=== PATIENT | female | born 1945 | race Caucasian/White ===

== ENCOUNTER 2017-04-07 01:14 | Inpatient (IN) | payer MEDICARE, MEDICAID ==
[2017-04-07 01:42] LABS: ABSOLUTE BASOPHILS # (AUTO) 0.1 10^3/uL (0.0-0.2); ABSOLUTE EOSINOPHILS # (AUTO) 0.1 10^3/uL (0.0-0.6); ABSOLUTE LYMPHOCYTES (AUTO) 1.4 10^3/uL (0.5-4.7); ABSOLUTE MONOCYTES (AUTO) 0.8 10^3/uL (0.1-1.4); ABSOLUTE NEUT (AUTO) 4.2 10^3/uL (1.7-8.2); EOSINOPHILS % (AUTO) 1.6 % (0-6); HEMATOCRIT 38.7 % (36.0-47.0); HEMOGLOBIN 12.9 g/dL (12.0-15.5); LYMPHOCYTES % (AUTO) 21.3 % (13-45); MEAN CORPUSCULAR HEMOGLOBIN 34.4 pg (27.0-33.4); MEAN CORPUSCULAR HGB CONC 33.3 g/dL (32.0-36.0); MEAN CORPUSCULAR VOLUME 104 fl (80-97); MONOCYTES % (AUTO) 12.3 % (3-13); RED BLOOD COUNT 3.74 10^6/uL (3.72-5.28); RED CELL DISTRIBUTION WIDTH 14.4 % (11.5-14.0); SEGMENTED NEUTROPHILS % (AUTO) 63.8 % (42-78); WHITE BLOOD COUNT 6.5 10^3/uL (4.0-10.5)
[2017-04-07 01:43] LABS: PROTHROMBIN TIME 12.3 SEC (11.4-15.4)
[2017-04-07 01:44] LABS: PARTIAL THROMBOPLASTIN TIME 28.5 SEC (23.5-35.8)
--- NOTE | 2017-04-07 01:50 | ER Document Report ---
ED Neuro Symptoms/Deficit - General Mode of Arrival: Ambulatory Information source: Patient Notes: Patient is a 72 year old female that presents to the emergency department today secondary to altered mental status. Daughter was called and she stated that when patient went to bed tonight the patient was normal, she woke up "shaking". According to the daughter, the patient was treated at [facility] 3 months ago secondary to an ischemic CVA. History is limited secondary to the patient's mental status. <STELLA SMITH - Last Filed: 04/07/17 06:01> <MARK RAHMAN - Last Filed: 04/08/17 03:41> - General Stated Complaint: ALTERED MENTAL STATUS Time Seen by Provider: 04/07/17 01:36 - Related Data Allergies/Adverse Reactions: ciprofloxacin [From Cipro] Adverse Reaction (Verified 04/07/17 03:01) codeine Adverse Reaction (Verified 04/07/17 03:01) morphine Adverse Reaction (Verified 04/07/17 03:01) Penicillins Adverse Reaction (Verified 04/07/17 03:01) promethazine [From Phenergan] Adverse Reaction (Verified 04/07/17 03:01) sulfamethoxazole [From Bactrim] Adverse Reaction (Verified 04/07/17 03:01) trimethoprim [From Bactrim] Adverse Reaction (Verified 04/07/17 03:01) Home Medications: Current Home Medications Amlodipine Besylate [Norvasc 5 mg Tablet] 5 mg PO DAILY 04/07/17 [History] Aspirin 81 mg PO DAILY PRN 04/07/17 [History] Atorvastatin Calcium 40 mg PO QHS 04/07/17 [History] Carvedilol [Coreg 12.5 mg Tablet] 12.5 mg PO Q12 04/07/17 [History] Cranberry [Cranberry 1000 mg Capsule] 2,000 mg PO NOON 04/07/17 [History] Ferrous Sulfate [Feosol 325 mg Tablet] 325 mg PO NOON 04/07/17 [History] Furosemide [Lasix 40 mg Tablet] 40 mg PO QAM 04/07/17 [History] Gabapentin [Neurontin 300 mg Capsule] 300 mg PO Q8 04/07/17 [History] Isosorbide Mononitrate [Isosorbide Mononitrate ER] 60 mg PO DAILY 04/07/17 [ History] L. Rhamnosus GG/Inulin [Culturelle Capsule] 1 each PO Q12 04/07/17 [History] Magnesium Oxide [Mag-Ox 400 mg Tablet] 400 mg PO NOON 04/07/17 [History] Pantoprazole Sodium 40 mg PO QHS 04/07/17 [History] Potassium Chloride 10 meq PO NOON 04/07/17 [History] Ranolazine [Ranexa] 1,000 mg PO Q12 04/07/17 [History] Past Medical History - General Information source: Patient - Social History Smoking Status: Never Smoker Cigarette use (# per day): No Frequency of alcohol use: None Drug Abuse: None Lives with: Family Family History: Reviewed & Not Pertinent - Past Medical History Cardiac Medical History: Reports: Hx Hypercholesterolemia Neurological Medical History: Reports: Hx Cerebrovascular Accident Surgical Hx: Negative <STELLA SMITH - Last Filed: 04/07/17 06:01> Review of Systems - Review of Systems -: Yes ROS unobtainable due to patient's medical condition <STELLA SMITH - Last Filed: 04/07/17 06:01> Physical Exam - Notes Notes: Physical Exam: General: Altered. HEENT: Normocephalic. Atraumatic. PERRL. Extraocular movements intact. Oropharynx clear. Neck: Supple. Non-tender. Respiratory: No respiratory distress. Clear and equal breath sounds bilaterally. Cardiovascular: Regular rate and rhythm. Abdominal: Normal Inspection. Non-tender. No distension. Normal Bowel Sounds. Back: Non-tender. No deformity or step off. Extremities: Moves all four extremities. Upper extremities: Normal inspection. Normal ROM. Lower extremities: Normal inspection. No edema. Normal ROM. Neurological: Alert, expressive aphasia and dysarthria. Initially flaccid throughout all extremties. Positive gag reflex. 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 Psychological: Normal affect. Normal Mood. Skin: Warm. Dry. Normal color. <STELLA SMITH - Last Filed: 04/07/17 06:01> - Vital signs Vitals: Resp BP Pulse Ox 21 H 110/53 L 99 04/07/17 01:49 04/07/17 01:49 04/07/17 01:49 <MARK RAHMAN - Last Filed: 04/08/17 03:41> Course - Laboratory Result Diagrams: 04/07/17 01:28 04/07/17 02:04 Laboratory results interpreted by me: 04/07/17 01:28 MCV 104 H MCH 34.4 H RDW 14.4 H <STELLA SMITH - Last Filed: 04/07/17 06:01> - Re-evaluation Re-evalutation: 04/07/17 02:42 Patient presents emergency department chief complaint of altered mental status. On ED arrival she was immediately made a stroke protocol and sent directly to CT. I was called over the CT scanner by the nurse who stated that the patient had an episode of bradycardia and hypotension. By the time I arrived in the CT scanner her heart rate was around 50 and no obvious abnormalities on the monitor blood pressure was systolic around 120. I stayed with her in the CT scanner. Radiologist called stating that there is a subacute infarct but no acute hemorrhage. Plan was to do a CTA cup put in as a CT with IV contrast. I have contacted [facility] request of a neurologist there. Daughter reports that the patient was taken to [facility] with a stroke about 3 months ago. Patient subsequently was admitted for about 3 weeks went to rehab. Since she has been home she has been doing okay with the exception of occasionally falling and having shakiness which have not been defined as seizures. Tonight the daughter states that the patient went to sleep in the chair completely normal woke up about 20-30 minutes later shaking and garbled speech. At this point when I contact the neurologist to [facility]'s been 1 hour and 50 minutes since the onset of symptoms. I am still awaiting a phone call from [facility] in terms of assessment evaluation for the use of thrombolytics. 04/07/17 02:[address] Aguilar who is on-call for the hospitalist program. Family has requested that she be transferred to [facility] we do not have a neurologist ophthalmic surgeon here so Dr. Aguilar is okay with us pursuing the transfer to [facility] as they have recommended. Received a call back from Dr. Deshawn Arriola hospitalist at [facility] discussed the case however I did not receive a phone call from a neurologist to weigh in on whether or not thrombolytics were appropriate. They are now contacting the neurologist to contact me back. Dr. Flako gomez does remember taking care of the patient says that she was discharged on Eliquis. Medications were reviewed at the bedside I do not see Eliquis on her medication list. Patient is reassessed at bedside she is able to hold both of her legs up at this point she is able to squeeze my hands with her bilateral upper extremities has 1 out of 4 strength equally to the upper extremities. She does comprehend what I am telling her but still with garbled speech. 04/07/17 02:58 04/07/17 03:20 Dr. vazquez, neurology callback from [facility]. He said it is my decision whether or not I would give thrombolytics as she is in the window. At this point the patient is unable to make a decision so I called her daughter on the telephone we had an extensive telephone conversation about risks and benefits of thrombolytics. At this time she has chosen not to have the thrombolytics administered to her mother. [facility] does not have a bed the daughter is comfortable with her staying here and contact Dr. Aguilar and keep her here at this facility. Daughter is uncertain whether or not the patient is on the blood thinner that she was discharged with from [facility] and her medication list here does not show that blood thinner on her list. 04/07/17 04:[address] Aguilar started blood pressure medication and calcium on this patient. He ordered 5 mg of dopamine, calcium gluconate, and glucagon. - Vital Signs Vital signs: Temp Pulse Resp BP Pulse Ox 15 114/54 L 99 04/07/17 02:03 04/07/17 02:03 04/07/17 02:03 - Laboratory Result Diagrams: 04/07/17 01:28 04/07/17 13:37 Laboratory results interpreted by me: 04/07/17 04/07/17 04/07/17 01:28 01:56 02:04 MCV 104 H MCH 34.4 H RDW 14.4 H BUN 42 H Creatinine 1.47 H Est GFR ( Amer) 42 L Est GFR (Non-Af Amer) 35 L POC Glucose 118 H <MARK RAHMAN Filed: 04/08/17 03:41> Critical Care Note - Critical Care Note Total time excluding time spent on procedures (mins): 75 <MARK RAHMAN Filed: 04/08/17 03:41> ED [employer]/Exc Criteria ED NIH Stroke Scale Discharge <STELLA SMITH - Last Filed: 04/07/17 06:01> - Discharge Admitting Provider: Hospitalist Unit Admitted: ICU Scribe Attestation: 04/07/17 04:31 I personally performed the services described in the documentation reviewed the documentation recorded by my scribe in my presence and it accurately and completely records my words and actions <MARK RAHMAN - Last Filed: 04/08/17 03:41> - Discharge Clinical Impression: Acute CVA (cerebrovascular accident), Pulmonary nodule on chest x-ray, uti Condition: Stable Disposition: ADMITTED INPATIENT Scribe Documentation - Scribe Written by Alyssa:: Alyssa Bermudez, 04/07/2017 0524 acting as scribe for :: Josué <STELLA SMITH - Last Filed: 04/07/17 06:01>
--- NOTE | 2017-04-07 02:13 | RADIOLOGY REPORT (SQ) ---
EXAM DESCRIPTION: CT HEAD WITHOUT COMPLETED DATE/TIME: 04/07/2017 1:48 am REASON FOR STUDY: stroke protocol. Slurred speech, right-sided weakness. Onset of symptoms 30 niurka cory prior. COMPARISON: None. TECHNIQUE: Axial images acquired through the brain without intravenous contrast. Images reviewed wi th bone, brain and subdural windows. Images stored on PACS. All CT scanners at this facility use dose modulation, iterative reconstruction, and/or weight based d osing when appropriate to reduce radiation dose to as low as reasonably achievable (ALARA). [facility]: Dose Right [facility]: CareDose [facility]: Dose Right [facility]: Teradose 4D [facility]: [employer] RADIATION DOSE: Up-to-date CT equipment and radiation dose reduction techniques were employed. CTDIv ol: 49.0 mGy. DLP: 881 mGy-cm.mGy. LIMITATIONS: None. FINDINGS: VENTRICLES: Prominent. CEREBRUM: No hemorrhage. No midline shift. Areas of low density in the white matter most likely du e to chronic micro-vascular ischemic change. There is a remote left basal ganglia infarct. There is also an area of low density in the right occipital lobe. CEREBELLUM: No hemorrhage. No alteration of density. No evidence for acute infarction. EXTRAAXIAL SPACES: Age-related involutional change. No fluid collections. ORBITS AND GLOBE: Symmetr ical contour of the globes. CALVARIUM: No depressed fracture. PARANASAL SINUSES: No air-fluid level. SOFT TISSUES: No hematoma. IMPRESSION: No acute intracranial hemorrhage. Low density area in the white matter in the right occ ipital lobe, may represent an age indeterminate infarct in the distribution of the right posterior ce rebral artery, possibly subacute or chronic. Please correlate with clinical history/ exam. No prior studies are available for comparison. Contrast enhanced MRI can help in better evaluation. Remote left basal ganglia infarct. Chronic changes of atrophy and microvascular ischemia. COMMENT: Pertinent findings on the imaging study reported as a CRITICAL RESULT to MARK RAHMAN MD at2 :00 hours on 04/07/2017. Category of Critical Result: Stroke alert. TECHNICAL DOCUMENTATION: JOB ID: [id number] Quality ID # [id number]: Final reports with documentation of one or more dose reduction techniques (e.g., Au tomated exposure control, adjustment of the mA and/or kV according to patient size, use of iterative reconstruction technique) 2010 [employer]- All Rights Reserved
[2017-04-07 02:24] LABS: ALANINE AMINOTRANSFERASE 26 U/L (9-52); ALBUMIN 4.2 g/dL (3.5-5.0); ALKALINE PHOSPHATASE 108 U/L (38-126); ANION GAP 13 (5-19); ASPARTATE AMINO TRANSFERASE 29 U/L (14-36); BILIRUBIN,DIRECT 0.4 mg/dL (0.0-0.4); BILIRUBIN,TOTAL 0.9 mg/dL (0.2-1.3); BLOOD UREA NITROGEN 42 mg/dL (7-20); CALCIUM 9.3 mg/dL (8.4-10.2); CARBON DIOXIDE 30 mmol/L (22-30); CHLORIDE 98 mmol/L (98-107); CREATINE KINASE 37 U/L (30-135); CREATININE RESULT 1.47 mg/dL (0.52-1.25); GLUCOSE 105 mg/dL (75-110); MAGNESIUM 2.2 mg/dL (1.6-2.3); POTASSIUM 4.9 mmol/L (3.6-5.0); SODIUM 140.7 mmol/L (137-145); TOTAL PROTEIN 7.2 g/dL (6.3-8.2)
[2017-04-07 02:38] LABS: TROPONIN I < 0.012 ng/mL
--- NOTE | 2017-04-07 02:58 | RADIOLOGY REPORT (SQ) ---
EXAM DESCRIPTION: CT HEAD WITH COMPLETED DATE/TIME: 04/07/2017 2:23 am REASON FOR STUDY: ams . History of stroke 3 months ago. COMPARISON: CT brain noncontrast 04/07/2017. TECHNIQUE: Axial images acquired through the brain with intravenous contrast. Images reviewed with b one, brain and subdural windows. Images stored on PACS. All CT scanners at this facility use dose modulation, iterative reconstruction, and/or weight based d osing when appropriate to reduce radiation dose to as low as reasonably achievable (ALARA). [facility]: Dose Right [facility]: CareDose [facility]: Dose Right [facility]: Teradose 4D [facility]: [employer] CONTRAST TYPE AND DOSE: contrast/concentration: Isovue 370.00 mg/ml; Total Contrast Delivered: 50.0 ml; Total Saline Delivered: 55.0 ml RENAL FUNCTION: Creatinine 1.47, GFR 35. RADIATION DOSE: Up-to-date CT equipment and radiation dose reduction techniques were employed. CTDIv ol: 49.0 mGy. DLP: 881 mGy-cm.. LIMITATIONS: Motion artifact. FINDINGS: There is motion artifact. VENTRICLES: Prominent. CEREBRUM: No enhancing masses. No hemorrhage. No midline shift. Areas of low density in the white matter most likely due to chronic micro-vascular ischemic change. There is a low density area in the right occipital lobe. CEREBELLUM: No enhancing masses. No hemorrhage. No alteration of density. No evidence for acute inf arction. EXTRAAXIAL SPACES: Age-related involutional change. No fluid collections. ORBITS AND GLOBE: Symmetr ical contour of the globes. CALVARIUM: No depressed fracture. PARANASAL SINUSES: No air-fluid level. SOFT TISSUES: No hematoma. IMPRESSION: No enhancing mass. Chronic changes of atrophy and microvascular ischemia. Low density area in the right occipital lobe, may correspond to the patient's prior infarct. Please correlate wi th clinical history/ exam. Comparison with prior studies would be helpful. Otherwise, MRI can help in further evaluation. TECHNICAL DOCUMENTATION: JOB ID: [id number] Quality ID # [id number]: Final reports with documentation of one or more dose reduction techniques (e.g., Au tomated exposure control, adjustment of the mA and/or kV according to patient size, use of iterative reconstruction technique) 2010 [employer]- All Rights Reserved
--- NOTE | 2017-04-07 03:01 | RADIOLOGY REPORT (SQ) ---
EXAM DESCRIPTION: CHEST SINGLE VIEW COMPLETED DATE/TIME: 04/07/2017 2:06 am REASON FOR STUDY: stroke protocol COMPARISON: None. EXAM PARAMETERS: NUMBER OF VIEWS: One view. TECHNIQUE: Single frontal radiographic view of the chest acquired. RADIATION DOSE: NA LIMITATIONS: None. FINDINGS: LUNGS AND PLEURA: No consolidation, pneumothorax or pleural effusion. There is a 7 mm nod ule in the right upper lobe. Hyperlucent lungs, suggestive of emphysema. MEDIASTINUM AND HILAR STRUCTURES: No masses. Contour normal. HEART AND VASCULAR STRUCTURES: Heart normal in size. No overt vascular congestion. BONES: No acute findings. HARDWARE: None in the chest. IMPRESSION: Emphysema. 7 mm nodule in the right upper lobe, CT thorax can help in better evaluation . TECHNICAL DOCUMENTATION: JOB ID: [id number]
[2017-04-07 03:10] LABS: APPEARANCE,URINE CLOUDY; BILIRUBIN,URINE NEGATIVE (NEGATIVE); GLUCOSE, URINE NEGATIVE (NEGATIVE); KETONES,URINE NEGATIVE (NEGATIVE); LEUKOCYTE ESTERASE,URINE MODERATE (NEGATIVE); NITRITE,URINE POSITIVE (NEGATIVE); PROTEIN,URINE 30 mg/dL (NEGATIVE); URINE SPECIFIC GRAVITY 1.032; UROBILINOGEN,URINE NEGATIVE mg/dL (<2.0)
[2017-04-07] MEDS ORDERED: CEFTRIAXONE INJ 1000 MG VIAL IV ONE (03:50)
[2017-04-07] MEDS ORDERED: CALCIUM GLUCONATE 1000 MG/10 ML INJ IV ONE ×2 (04:01→14:45)
[2017-04-07] MEDS ORDERED: GLUCAGON,HUMAN RECOMB 1 MG INJ ONE (04:01)
[2017-04-07] MEDS ORDERED: DOPAMINE HCL/DEXTROSE 5%-WATER 800 MG/250 ML RTUINJ IV ONE ×2 (04:12→14:17)
[2017-04-07] MEDS ORDERED: ASPIRIN 300 MG SUPP, RECTAL PR ONE (04:24)
[2017-04-07] MEDS ORDERED: NORMAL SALINE 1000 ML 1,000 ML IV SCH (04:30)
[2017-04-07] MEDS ORDERED: ATROPINE SULFATE INJ 1 MG/1 ML VIAL IV ONE (04:30)
[2017-04-07] MEDS ORDERED: ATORVASTATIN CALCIUM 80 MG TABLET PO SCH (04:30)
[2017-04-07] MEDS ORDERED: ATROPINE SULFATE INJ 1 MG/1 ML VIAL ONE (04:38)
[2017-04-07] MEDS ORDERED: DEXTROSE 5%-WATER 250 ML with NOREPINEPHRINE BITARTRATE 4 MG IV PRN ×2 (05:09)
[2017-04-07 05:22] LABS: ARTERIAL BLOOD BASE EXCESS 3.2 mmol/L
[2017-04-07] MEDS ORDERED: NOREPINEPHRINE BITARTRATE INJ/PF 4 MG/4 ML SDV IV ONE (05:35)
[2017-04-07 05:48] LABS: URINE BARBITURATES SCREEN NEGATIVE; URINE METHADONE SCREEN NEGATIVE; URINE OPIATES LOW NEGATIVE; URINE PHENCYCLIDINE SCREEN NEGATIVE
[2017-04-07] MEDS ORDERED: HEPARIN SOD (PORCINE) 5,000 UNIT/ML 1 ML SYRINGE SUBCUT SCH (06:00)
--- NOTE | 2017-04-07 07:23 | PDOC H&P ---
History of Present Illness Patient complains of: Seizure-like activity History of Present Illness: LISA FRANCISCO is a 72 year old female with a past medical history of coronary artery disease, COPD and CVA approximately 3 months ago who had been discharged from acute rehabilitation approximately a week ago without significant deficits and doing well until approximately midnight when she was noted to awaken from a 20 minute nap with limb shaking and inability to speak. Her daughter is contacted and able to provide history denies prior complaint of fever chills, nausea or vomiting. EMS is called and she is found with a low blood pressure, pulse and brought to the emergency room for evaluation. In the emergency room she is found to have bradycardia with a junctional escape rhythm, hypotension and expressive aphasia. Nursing reports critical bradycardia in the 20s upon transport to [place]. Evaluation of her medication blister packs indicate missing medications from future dates including Coreg and Norvasc. ER provider states family declines thrombolytic and refers patient to the hospitalist. Patient is seen by MD in the emergency room placed in Trendelenburg ordered glucagon, calcium gluconate and a bolus of normal saline. Following glucagon atropine and dopamine are initiated. Patient admitted to the ICU and cardiology consulted. Past Medical History Cardiac Medical History: Reports: Coronary Artery Disease, Hypertension Pulmonary Medical History: Reports: Chronic Obstructive Pulmonary Disease (COPD) EENT Medical History: Reports: None Neurological Medical History: Reports: Ischemic CVA, Other - With left eye blind residual. Otherwise ambulatory and independent ADLs. Musculoskeltal Medical History: Reports: None Skin Medical History: Reports: None Psychiatric Medical History: Reports: None Hematology: Reports: None Infectious Medical History: Reports: None Social History Information Source: Relative, Emergency Med Personnel, [facility] Records Lives with: Family Smoking Status: Former Smoker Drugs: None Hx Prescription Drug Abuse: No Family History Family History: Hypertension Parental Family History Reviewed: Yes - Unobtainable Children Family History Reviewed: Yes - Unobtainable Sibling(s) Family History Reviewed.: Yes - Unobtainable Medication/Allergy Home Medications: Amlodipine Besylate [Norvasc 5 mg Tablet] 5 mg PO DAILY 04/07/17 Aspirin 81 mg PO DAILY PRN 04/07/17 Atorvastatin Calcium 40 mg PO QHS 04/07/17 Carvedilol [Coreg 12.5 mg Tablet] 12.5 mg PO Q12 04/07/17 Cranberry [Cranberry 1000 mg Capsule] 2 cap PO NOON 04/07/17 Furosemide [Lasix 40 mg Tablet] 40 mg PO QAM 04/07/17 Gabapentin [Neurontin 300 mg Capsule] 300 mg PO Q8 04/07/17 Iron,Carbonyl/Vit C/Vit B12/FA [Iron 100 Plus Tablet] 1 each PO NOON 04/07/17 Isosorbide Mononitrate [Isosorbide Mononitrate ER] 60 mg PO DAILY 04/07/17 L. Rhamnosus GG/Inulin [Culturelle Capsule] 1 each PO BID 04/07/17 Magnesium Oxide [Mag-Ox 400 mg Tablet] 400 mg PO NOON 04/07/17 Pantoprazole Sodium 40 mg PO QHS 04/07/17 Potassium Chloride 10 meq PO NOON 04/07/17 Ranolazine [Ranexa] 1,000 mg PO BID 04/07/17 Valacyclovir HCl [Valacyclovir] 1,000 mg PO BID 04/07/17 Allergies/Adverse Reactions: ciprofloxacin [From Cipro] Adverse Reaction (Verified 04/07/17 03:01) codeine Adverse Reaction (Verified 04/07/17 03:01) morphine Adverse Reaction (Verified 04/07/17 03:01) Penicillins Adverse Reaction (Verified 04/07/17 03:01) promethazine [From Phenergan] Adverse Reaction (Verified 04/07/17 03:01) sulfamethoxazole [From Bactrim] Adverse Reaction (Verified 04/07/17 03:01) trimethoprim [From Bactrim] Adverse Reaction (Verified 04/07/17 03:01) Review of Systems ROS unobtainable: Due to mental status - Unobtainable Physical Exam Vital Signs: Temp Pulse Resp BP Pulse Ox 97.0 F 15 105/50 L 96 04/07/17 02:30 04/07/17 04:01 04/07/17 04:01 04/07/17 04:01 General appearance: PRESENT: mild distress Head exam: PRESENT: atraumatic, normocephalic Eye exam: PRESENT: conjunctiva pink, EOMI, PERRLA. ABSENT: scleral icterus Ear exam: PRESENT: normal external ear exam Mouth exam: PRESENT: moist, tongue midline Neck exam: ABSENT: carotid bruit, JVD, lymphadenopathy, thyromegaly Respiratory exam: PRESENT: clear to auscultation edwin. ABSENT: rales, rhonchi, wheezes Cardiovascular exam: PRESENT: bradycardia, irregular rhythm Pulses: PRESENT: normal dorsalis pedis pul Vascular exam: PRESENT: normal capillary refill GI/Abdominal exam: PRESENT: normal bowel sounds, soft. ABSENT: distended, guarding, mass, organolmegaly, rebound, tenderness Rectal exam: PRESENT: deferred Extremities exam: PRESENT: full ROM. ABSENT: calf tenderness, clubbing, pedal edema Neurological exam: PRESENT: altered, awake, CN II-XII grossly intact, aphasic Skin exam: PRESENT: dry, intact, warm. ABSENT: cyanosis, rash Results Laboratory Results: 04/07/17 01:28 04/07/17 02:04 04/07/17 04/07/17 04/07/17 01:28 01:28 02:04 WBC 6.5 RBC 3.74 Hgb 12.9 Hct 38.7 MCV 104 H MCH 34.4 H MCHC 33.3 RDW 14.4 H Plt Count 248 Seg Neutrophils % 63.8 Lymphocytes % 21.3 Monocytes % 12.3 Eosinophils % 1.6 Basophils % 1.0 Absolute Neutrophils 4.2 Absolute Lymphocytes 1.4 Absolute Monocytes 0.8 Absolute Eosinophils 0.1 Absolute Basophils 0.1 Sodium Cancelled 140.7 Potassium Cancelled 4.9 Chloride Cancelled 98 Carbon Dioxide Cancelled 30 Anion Gap Cancelled 13 BUN Cancelled 42 H Creatinine Cancelled 1.47 H Est GFR ( Amer) Cancelled 42 L Est GFR (Non-Af Amer) Cancelled 35 L Glucose Cancelled 105 Calcium Cancelled 9.3 Magnesium 2.2 Total Bilirubin Cancelled 0.9 AST Cancelled 29 ALT Cancelled 26 Alkaline Phosphatase Cancelled 108 Total Protein Cancelled 7.2 Albumin Cancelled 4.2 Urine Color Urine Appearance Urine pH Ur Specific [place] Urine Protein Urine Glucose (UA) Urine Ketones Urine Blood Urine Nitrite Ur Leukocyte Esterase Urine WBC (Auto) Urine RBC (Auto) 04/07/17 02:48 WBC RBC Hgb Hct MCV MCH MCHC RDW Plt Count Seg Neutrophils % Lymphocytes % Monocytes % Eosinophils % Basophils % Absolute Neutrophils Absolute Lymphocytes Absolute Monocytes Absolute Eosinophils Absolute Basophils Sodium Potassium Chloride Carbon Dioxide Anion Gap BUN Creatinine Est GFR ( Amer) Est GFR (Non-Af Amer) Glucose Calcium Magnesium Total Bilirubin AST ALT Alkaline Phosphatase Total Protein Albumin Urine Color MALDONADO Urine Appearance CLOUDY Urine pH 5.0 Ur Specific [place] 1.032 Urine Protein 30 H Urine Glucose (UA) NEGATIVE Urine Ketones NEGATIVE Urine Blood NEGATIVE Urine Nitrite POSITIVE H Ur Leukocyte Esterase MODERATE H Urine WBC (Auto) 77 Urine RBC (Auto) 0 04/07/17 04/07/17 04/07/17 01:28 01:28 02:04 Creatine Kinase Cancelled 37 CK-MB (CK-2) Cancelled Troponin I Cancelled 04/07/17 02:04 Creatine Kinase CK-MB (CK-2) 0.70 Troponin I < 0.012 Impressions: Chest X-Ray 04/07/17 01:30 IMPRESSION: Emphysema. 7 mm nodule in the right upper lobe, CT thorax can help in better evaluation. Head CT 04/07/17 02:02 IMPRESSION: No enhancing mass. Chronic changes of atrophy and microvascular ischemia. Low density area in the right occipital lobe, may correspond to the patient's prior infarct. Please correlate with clinical history/ exam. Comparison with prior studies would be helpful. Otherwise, MRI can help in further evaluation. Assessment & Plan - Diagnosis (1) Acute CVA (cerebrovascular accident) Is this a current diagnosis for this admission?: Yes Plan: History of recent CVA without residual her daughter and apparently without stenotic lesion, will obtain records from [facility]. Continue aggressive reversal of hypotension and bradycardia, aspirin and Lipitor , speech, occupational and physical therapy ordered. (2) Bradycardia with 41-50 beats per minute Is this a current diagnosis for this admission?: Yes Plan: Likely secondary to beta-wally toxicity, concern for hypoperfusion or even embolic source of CVA. Atropine, glucagon, calcium gluconate and dopamine. Cardiology consulted and ICU admission (3) Hypotension Is this a current diagnosis for this admission?: Yes Plan: Please see #1. IV fluid challenge initiated patient appears hypovolemic physically and prerenal by labs. (4) Prerenal azotemia Is this a current diagnosis for this admission?: Yes Plan: IV fluid challenge reevaluate chemistry (5) Toxic effect of beta wally Is this a current diagnosis for this admission?: Yes Plan: Atropine, glucagon, calcium gluconate and dopamine. Cardiology consulted and ICU admission (6) Mass of right lung Is this a current diagnosis for this admission?: Yes Plan: Consider chest CT or outpatient workup. (7) UTI (urinary tract infection) Is this a current diagnosis for this admission?: Yes Plan: Urine culture, empiric antibiotics. Follow-up CBC and culture - Time Time Spent: 50 to 70 Minutes - Inpatient Certification Medical Necessity: Need Close Monitoring Due to Risk of Patient Decompensation
[2017-04-07 07:43] LABS: ARTERIAL BLOOD O2 SATURATION 98.3 % (94-98)
[2017-04-07] MEDS ORDERED: NORMAL SALINE 1000 ML 1,000 ML IV PRN (08:36)
[2017-04-07 08:59] LABS: CREATINE KINASE MB 0.57 ng/mL (<4.55)
[2017-04-07] MEDS ORDERED: NORMAL SALINE 1000 ML 2,000 ML IV ONE (09:00)
[2017-04-07 09:03] LABS: TROPONIN I < 0.012 ng/mL
[2017-04-07] MEDS: CEFTRIAXONE 1 GM/D5W RTU 1 GM/50 ML RTUPB IV SCH (09:26)
[2017-04-07] MEDS ORDERED: (PENDING PHARMACY ID) (Valacyclovir Hcl [Valacyclovir] 1,000 MG) PO SCH (10:00)
[2017-04-07] MEDS ORDERED: VALACYCLOVIR HCL 500 MG TABLET PO SCH (10:00)
[2017-04-07] MEDS ORDERED: ONDANSETRON HCL INJ/PF 4 MG/2 ML SDV ONE (10:13)
[2017-04-07] MEDS ORDERED: ONDANSETRON HCL INJ/PF 4 MG/2 ML SDV IV PRN (11:33)
[2017-04-07] MEDS ORDERED: CRANBERRY PO SCH (12:00)
[2017-04-07] MEDS ORDERED: MAGNESIUM OXIDE 400 MG TABLET PO SCH (12:00)
--- NOTE | 2017-04-07 12:22 | PDOC CONSULTATION ---
Consultation Consult Date: 04/07/17 Attending physician:: ARLYN BLACKMON Consult reason:: Bradycardia and hypotension History of Present Illness Admission Date/PCP: 04/07/17 04:20 Patient complains of: Weakness History of Present Illness: LISA FRANCISCO is a 72 year old female with a past medical history of coronary artery disease, COPD and CVA approximately 3 months ago who had been discharged from acute rehabilitation approximately a week ago without significant deficits and doing well until approximately midnight when she was noted to awaken from a 20 minute nap with limb shaking and inability to speak. Her daughter is contacted and able to provide history denies prior complaint of fever chills, nausea or vomiting. EMS is called and she is found with a low blood pressure, pulse and brought to the emergency room for evaluation. In the emergency room she is found to have bradycardia with a junctional escape rhythm, hypotension and expressive aphasia. Nursing reports critical bradycardia in the 20s upon transport to CT. Evaluation of her medication blister packs indicate missing medications from future dates including Coreg and Norvasc. ER provider states family declines thrombolytic and refers patient to the hospitalist. Patient is seen by MD in the emergency room placed in Trendelenburg ordered glucagon, calcium gluconate and a bolus of normal saline. Following glucagon atropine and dopamine are initiated. Patient admitted to the ICU and cardiology consulted. This history was reviewed and supplemented. Patient on repeated questioning denied any chest pain or any shortness of breath. Patient has noted some dizziness and spells of fatigue and tiredness. Patient denied any prior history of myocardial infarction. Patient does have intermittent nausea and vomiting. Patient claims to be back to baseline as regards speech problems. Past Medical History Cardiac Medical History: Reports: Coronary Artery Disease, Myocardial Infarction , Hyperlipidema, Hypertension Pulmonary Medical History: Reports: Chronic Obstructive Pulmonary Disease (COPD) EENT Medical History: Reports: None Neurological Medical History: Reports: Ischemic CVA, Other - With left eye blind residual. Otherwise ambulatory and independent ADLs. Musculoskeltal Medical History: Reports: None Skin Medical History: Reports: None Psychiatric Medical History: Reports: None Hematology: Reports: None Infectious Medical History: Reports: None Social History Information Source: Patient Lives with: Family Smoking Status: Former Smoker Cigarettes Packs Per Day: 2 Number of Years Smokin Last Time Smoked: 2009 Frequency of Alcohol Use: None Drugs: None Hx Prescription Drug Abuse: No - Advance Directive Resuscitation Status: Full Code Surrogate healthcare decision maker:: Patient's daughter is the surrogate decision-maker Family History Family History: Hypertension Parental Family History Reviewed: Yes Children Family History Reviewed: Yes Sibling(s) Family History Reviewed.: Yes Medication/Allergy Home Medications: Amlodipine Besylate [Norvasc 5 mg Tablet] 5 mg PO DAILY 04/07/17 Aspirin 81 mg PO DAILY PRN 04/07/17 Atorvastatin Calcium 40 mg PO QHS 04/07/17 Carvedilol [Coreg 12.5 mg Tablet] 12.5 mg PO Q12 04/07/17 Cranberry [Cranberry 1000 mg Capsule] 2,000 mg PO NOON 04/07/17 Ferrous Sulfate [Feosol 325 mg Tablet] 325 mg PO NOON 04/07/17 Furosemide [Lasix 40 mg Tablet] 40 mg PO QAM 04/07/17 Gabapentin [Neurontin 300 mg Capsule] 300 mg PO Q8 04/07/17 Isosorbide Mononitrate [Isosorbide Mononitrate ER] 60 mg PO DAILY 04/07/17 L. Rhamnosus GG/Inulin [Culturelle Capsule] 1 each PO Q12 04/07/17 Magnesium Oxide [Mag-Ox 400 mg Tablet] 400 mg PO NOON 04/07/17 Pantoprazole Sodium 40 mg PO QHS 04/07/17 Potassium Chloride 10 meq PO NOON 04/07/17 Ranolazine [Ranexa] 1,000 mg PO Q12 04/07/17 Allergies/Adverse Reactions: ciprofloxacin [From Cipro] Adverse Reaction (Verified 04/07/17 03:01) codeine Adverse Reaction (Verified 04/07/17 03:01) morphine Adverse Reaction (Verified 04/07/17 03:01) Penicillins Adverse Reaction (Verified 04/07/17 03:01) promethazine [From Phenergan] Adverse Reaction (Verified 04/07/17 03:01) sulfamethoxazole [From Bactrim] Adverse Reaction (Verified 04/07/17 03:01) trimethoprim [From Bactrim] Adverse Reaction (Verified 04/07/17 03:01) Review of Systems Review of Systems: Please see history of present illness and past medical history as wall. Constitutional: No fever or chills reported. Head : No recent chronic headaches, recent head injury. Eyes: No recent eye pain, diplopia, redness, discharge, acute visual changes. Ears: No recent chronic ear pain, acute hearing loss, ear discharge. Oral cavity: No recent ulcerations, bleeding, oral cavity discomfort. Neck: No recent acute neck pain reported. Hematologic: No recent easy bruising or bleeding or hematologic malignancy reported. Lymphatic: No recent lymphatic malignancy, chronic lymphadenopathy reported yet Cardiovascular system review: See history of present illness. Respiratory system review: No recent chronic cough, hemoptysis, blood clots in the lungs reported. Mild Shortness of breath on exertion Gastrointestinal system review: Negative for any recent acute or chronic abdominal pain, hematemesis, melena, recent change in bowel habits. Genitourinary system review: No recent acute or chronic hematuria, flank pain, UTI etc. reported. Skin system review: Negative for any recent abnormal bruising, no rash, no pruritus reported. Neurologic: History of recent strokes and mini strokes. No definite history of seizure disorder. Psychologic: No history of major psychosis or major depression reported. Musculoskeletal: Minor aches and pains reported. No acute joint swelling reported. Endocrine: No recent polyuria, polydipsia, recent heat or cold intolerance. Physical Exam Vital Signs: Temp Pulse Resp BP Pulse Ox 97.9 F 64 18 101/49 L 87 L 04/07/17 10:22 04/07/17 08:00 04/07/17 10:22 04/07/17 10:22 04/07/17 10:22 Intake & Output 04/06/17 04/07/17 04/08/17 06:59 06:59 06:59 Intake Total 290 Output Total 110 Balance 180 Weight 86.2 kg Exam: GENERAL: well-nourished and in no acute distress. Alert and oriented x3 HEAD: Atraumatic, normocephalic. EYES: Pupils equal round and reactive to light, extraocular movements intact, sclera anicteric, conjunctiva are normal. Left-sided residual blindness noted. ENT: TMs normal, nares patent, oropharynx clear without exudates. Moist mucous membranes. No oral ulcerations or bleeding gums noted NECK: supple without lymphadenopathy. Trachea is central. No cervical or axillary lymphadenopathy noted. Carotids are 2+, JVD WNL LUNGS: Respiration seems nonlabored, no significant accessory muscle action noted. Breath sounds clear to auscultation bilaterally and equal noted. No wheezes rales or rhonchi noted. No significant dullness noted on percussion. CHEST: Palpation of the chest wall shows no significant chest wall tenderness. No other significant abnormalities noted. HEART: [place]gs SUPERINTENDENT MEASUREMENT, No PSH, 1/6 MARTIN aortic area, 1/6 herrera systolic murmur mitral area, no rubs, no gallops. ABDOMEN: Soft, no significant tenderness appreciated, normoactive bowel sounds. No guarding, no rebound. No rigidity noted . No masses appreciated. EXTREMITIES: Pedal pulses are 1-2+, no calf tenderness noted. No clubbing or cyanosis.trace to 1+ pedal edema noted NEUROLOGICAL: Focused neurological exam showed speech being dysarthric. Mild left-sided weakness noted. A full neurological exam was not performed. PSYCH: Normal mood, normal affect. Judgment and insight within normal limits. SKIN: No significant ecchymosis, rash, ulcerations or signs of pruritus noted. MUSCULOSKELETAL EXAM: No significant joint swelling noted. Results Laboratory Results: 04/07/17 04/07/17 04/07/17 05:10 06:13 07:30 Carbonic Acid 2.01 H 1.84 H HCO3/H2CO3 Ratio 15:1 16:1 ABG pH 7.29 L 7.30 L ABG pCO2 66.8 H 61.2 H ABG pO2 49.1 L 131.2 H ABG HCO3 31.5 H 29.6 H ABG O2 Saturation 79.0 L 98.3 H ABG Base Excess 3.2 2.0 FiO2 3 LITERS 60% Lactic Acid 1.1 04/07/17 04/07/17 08:10 08:10 Creatine Kinase 28 L CK-MB (CK-2) 0.57 Troponin I < 0.012 EKG Comments: EKG this morning shows sinus rhythm with heart rate of 59. No acute ST-T wave changes are noted. Impressions: Chest X-Ray 04/07/17 01:30 IMPRESSION: Emphysema. 7 mm nodule in the right upper lobe, CT thorax can help in better evaluation. Head CT 04/07/17 02:02 IMPRESSION: No enhancing mass. Chronic changes of atrophy and microvascular ischemia. Low density area in the right occipital lobe, may correspond to the patient's prior infarct. Please correlate with clinical history/ exam. Comparison with prior studies would be helpful. Otherwise, MRI can help in further evaluation. Assessment & Plan - Diagnosis (1) Acute CVA (cerebrovascular accident) Is this a current diagnosis for this admission?: Yes (2) Bradycardia with 41-50 beats per minute Is this a current diagnosis for this admission?: Yes (3) Hypotension Is this a current diagnosis for this admission?: Yes (4) Toxic effect of beta wally Is this a current diagnosis for this admission?: Yes (5) Coronary artery disease Qualifiers: Coronary Disease-Associated Artery/Lesion type: [place] artery Associated angina: angina presence unspecified Is this a current diagnosis for this admission?: Yes - Notes Notes: Bradycardia: Most likely related to excess beta-wally intake but could well be related to sick sinus syndrome, possible vagal tone increase. At this point continue with dopamine, Levophed. Will start patient on a scopolamine patch as patient does give history of nausea. Intermittent bradycardia which was noted also this morning and on CT scan could have been related to vagal stimulation. Hypotension: Possibly related to excess antihypertensive and possible underlying hypovolemia. Agree with IV fluids and use of vasopressors. Cerebrovascular accident: Difficult to assess whether it is acute or chronic. Possible seizures. Continue to observe. Recommend antiplatelet and statin therapy at this point. Coronary artery disease: Currently stable. Recommend resuming beta-wally when heart rate improves, JUN inhibitor/ARB, statins and antiplatelet therapy. - Time Time Spent: 50 to 70 Minutes - CODE STATUS was discussed, patient remains full code. Surrogate decision-maker unchanged. Multiple medical problems were addressed. More than 50% of the time spent coordinating care, discussing management plans with involved caregivers. Management plans discussed with involved personnels. Medical decision making was of moderate to high complexity , patient's has multiple comorbidities. Medications reviewed and adjusted accordingly: Yes
--- NOTE | 2017-04-07 12:32 | RADIOLOGY REPORT (SQ) ---
EXAM DESCRIPTION: CHEST SINGLE VIEW COMPLETED DATE/TIME: 04/07/2017 12:22 pm REASON FOR STUDY: hypoxia COMPARISON: 04/07/2017 at 0134 hours. EXAM PARAMETERS: NUMBER OF VIEWS: One view. TECHNIQUE: Single frontal radiographic view of the chest acquired. RADIATION DOSE: NA LIMITATIONS: None. FINDINGS: LUNGS AND PLEURA: Emphysematous changes. Chronic pleural and parenchymal scarring. No lo bar infiltrates. No pneumothorax. No pleural effusion. MEDIASTINUM AND HILAR STRUCTURES: No masses. Contour normal. HEART AND VASCULAR STRUCTURES: Heart normal in size. Normal vasculature. BONES: No acute findings. HARDWARE: None in the chest. OTHER: No other significant finding. IMPRESSION: EMPHYSEMATOUS CHANGES WITH CHRONIC SCARRING. NO ACUTE RADIOGRAPHIC FINDING IN THE CHEST . TECHNICAL DOCUMENTATION: JOB ID: [id number]
[2017-04-07] MEDS: ALBUMIN HUMAN 50 ML IV SCH ×4 (12:38→15:24)
[2017-04-07] MEDS ORDERED: SCOPOLAMINE HYDROBROMIDE 1.5 MG PATCH.TD72 TD ONE ×2 (13:00→13:30)
--- NOTE | 2017-04-07 13:59 | EKG REPORT ---
SEVERITY:- ABNORMAL ECG - SINUS RHYTHM : Confirmed by: Malcolm Lo 07-Apr-2017 13:59:10
--- NOTE | 2017-04-07 14:01 | EKG REPORT ---
SEVERITY:- ABNORMAL ECG - SINUS RHYTHM : Confirmed by: Malcolm Lo 07-Apr-2017 13:59:54
--- NOTE | 2017-04-07 14:03 | PDOC PROGRESS REPORT ---
Subjective Progress Note for:: 04/07/17 Subjective:: Patient seen earlier today on morning rounds with nurse Patrick Khalil, RN present at bedside. Patient was on Bipap, levophed, and dopamine when I saw her this morning. Also spoke with her son over the phone and he reoprts that his mother was previously on oxygen due to copd and was taken off at rehab. He dose also report a significant snoring history. Patient denies chest pain, shortness of breath, nausea, vomiting, fever, chills , headache, new weakness, abdominal pain, diarrhea, constipation. Patient thinks her last BM was yesterday, but is not sure. She answers appropriately, but is slightly delayed. Physical Exam Vital Signs: Temp Pulse Resp BP Pulse Ox 97.9 F 64 18 101/49 L 87 L 04/07/17 10:22 04/07/17 08:00 04/07/17 10:22 04/07/17 10:22 04/07/17 10:22 Intake & Output 04/06/17 04/07/17 04/08/17 06:59 06:59 06:59 Intake Total 290 Output Total 110 Balance 180 Weight 86.2 kg Exam: General: Awake alert and oriented x2 (stated was at [facility]), no acute respiratory distress HEENT: AT/NC, PERRL, EOMI, oropharynx is dry, pink, no scleral icterus, no conjunctival injection Neck: No JVD, trachea midline Chest: Prol;onged expiratory phase, Clear to auscultation bilaterally, no wheezes rhonchi or rales CV: Regular rate and rhythm, normal S1 and S2, no rub or gallop; +2/6 SM LUSB Abdomen: Soft, nontender to palpation, nondistended, hypoactive bowel sounds; no rebound, rigidity, or guarding Extremities: No cyanosis; mild clubbing, trace edema Neuro: mild dysarthria, right sided facial droop, chronic left eye vision loss, LLE 4+/5, RLE 4/5, RUE 4+/5, LUE 4+/5; awake alert and oriented x2 (not to place ) Psych: Normal mood and affect Skin: No rashes or worrisome lesions Results Laboratory Results: 04/07/17 04/07/17 04/07/17 05:10 06:13 07:30 Carbonic Acid 2.01 H 1.84 H HCO3/H2CO3 Ratio 15:1 16:1 ABG pH 7.29 L 7.30 L ABG pCO2 66.8 H 61.2 H ABG pO2 49.1 L 131.2 H ABG HCO3 31.5 H 29.6 H ABG O2 Saturation 79.0 L 98.3 H ABG Base Excess 3.2 2.0 FiO2 3 LITERS 60% Lactic Acid 1.1 04/07/17 04/07/17 08:10 08:10 Creatine Kinase 28 L CK-MB (CK-2) 0.57 Troponin I < 0.012 Impressions: Chest X-Ray 04/07/17 01:30 IMPRESSION: Emphysema. 7 mm nodule in the right upper lobe, CT thorax can help in better evaluation. Head CT 04/07/17 02:02 IMPRESSION: No enhancing mass. Chronic changes of atrophy and microvascular ischemia. Low density area in the right occipital lobe, may correspond to the patient's prior infarct. Please correlate with clinical history/ exam. Comparison with prior studies would be helpful. Otherwise, MRI can help in further evaluation. Assessment & Plan - Diagnosis (1) UTI (urinary tract infection) Qualifiers: Urinary tract infection type: acute cystitis Is this a current diagnosis for this admission?: Yes Plan: Patient is currently on Rocephin. She does report a long history of prior UTIs as well as multiple drug allergies including Cipro, Bactrim, and penicillin. Currently pending blood and urine cultures (2) Septic shock Is this a current diagnosis for this admission?: Yes Plan: Continue Levophed and dopamine to maintain a map greater than 65. Continue IVF. Patient given 2L of NS bolus and NS @150mL/hr Caution in light of CHF (3) CVA, old, dysarthria Is this a current diagnosis for this admission?: Yes Plan: Patient presented with dysarthria and rhythmic movements. Questionable new versus old CVA. CT scan suggests subacute or old infarct. Timeline does not support acute CVA, but in light of convoluted presentation will obtain an MRI. Patient has had prior echo and carotid Doppler done at [facility] and we have requested these record. (4) Bradycardia with 41-50 beats per minute Is this a current diagnosis for this admission?: Yes Plan: Cardiology was consulted overnight and we appreciate their input and addition of scopolamine patch from them. (5) Coronary artery disease Qualifiers: Coronary Disease-Associated Artery/Lesion type: [place] artery Associated angina: angina presence unspecified Is this a current diagnosis for this admission?: Yes Plan: Home medications normally include beta-wally and long-acting nitrate and Ranexa. Currently unable to tolerate these secondary to hypotension (6) Acute on chronic respiratory failure with hypoxemia Is this a current diagnosis for this admission?: Yes Plan: Patient's son reports to me that she was normally on oxygen prior to discharge from rehab. Will obtain VQ scan. Patient's creatinine would not tolerate a CTA. Continue to maintain oxygenation greater than 90%. BiPAP if needed. (7) Chronic diastolic heart failure Is this a current diagnosis for this admission?: Yes Plan: Patient had an echo done approximately 3 months ago which revealed an EF of 55% and diastolic dysfunction. Will be judicious with fluid administration. Patient's home medicines include Lasix, Coreg, isosorbide, and Norvasc. Patient is currently unable to tolerate these due to shock. (8) CKD (chronic kidney disease), stage III Is this a current diagnosis for this admission?: Yes Plan: Renally adjust all medications (9) Obesity with serious comorbidity Qualifiers: Obesity classification: adult class 1 (BMI 30 ? 34.9) Body mass index: BMI 31.0-31.9 Is this a current diagnosis for this admission?: Yes Plan: Consult dietary (10) PAF (paroxysmal atrial fibrillation) Is this a current diagnosis for this admission?: Yes Plan: Patient has a history according to her records from [facility] of paroxysmal atrial fibrillation. Patient normally takes Coreg for this. She is currently in sinus rhythm. Patient was supposed to be on Eliquis as an outpatient, but this was not one of her reconciled home medications. We will resume patient's home Eliquis. - Time Time Spent with patient: 35 or more minutes Critical Time spent with patient: 35 or more minutes Medications reviewed and adjusted accordingly: Yes - Inpatient Certification Based on my medical assessment, after consideration of the patient's comorbidities, presenting symptoms, or acuity I expect that the services needed warrant INPATIENT care.: Yes I certify that my determination is in accordance with my understanding of Medicare's requirements for reasonable and necessary INPATIENT services [42 CFR 412.3e].: Yes Medical Necessity: Need For IV Fluids, Need For Continuous Telemetry Monitoring , Need for Neurological Checks, Need for IV Antibiotics Post Hospital Care: D/C Program Professional Documentation
[2017-04-07 14:10] LABS: ANION GAP 11 (5-19); BLOOD UREA NITROGEN 39 mg/dL (7-20); CALCIUM 9.5 mg/dL (8.4-10.2); CARBON DIOXIDE 27 mmol/L (22-30); CHLORIDE 101 mmol/L (98-107); CREATININE RESULT 1.63 mg/dL (0.52-1.25); GLUCOSE 114 mg/dL (75-110); MAGNESIUM 1.9 mg/dL (1.6-2.3); POTASSIUM 4.2 mmol/L (3.6-5.0); SODIUM 138.8 mmol/L (137-145)
[2017-04-07] MEDS ORDERED: DOPAMINE HCL/DEXTROSE 5%-WATER 800 MG/250 ML RTUINJ IV PRN (14:13)
[2017-04-07 14:21] LABS: CREATINE KINASE MB 0.61 ng/mL (<4.55)
[2017-04-07 14:31] LABS: TROPONIN I < 0.012 ng/mL
[2017-04-07] MEDS ORDERED: ALBUTEROL SULFATE HFA (90 MCG/PUFF) 200 PUFF/8.5 GM MDI IH PRN ×2 (14:44→19:00)
--- NOTE | 2017-04-07 15:20 | RADIOLOGY REPORT (SQ) ---
EXAM DESCRIPTION: NM LUNG PERFUSION SCAN COMPLETED DATE/TIME: 04/07/2017 3:07 pm REASON FOR STUDY: hypoxia COMPARISON: Chest x-ray dated 04/07/2017. RADIONUCLIDE AND DOSE: 5.27 millicuries TC-99m MAA The route of agent administration: Intravenous TECHNIQUE: Six views of the lungs acquired following injection of MAA. LIMITATIONS: None. FINDINGS: PERFUSION: Perfusion images with mild heterogenous activity and no wedge-shaped or segment al defects. OTHER: No other significant finding. IMPRESSION: NORMAL PERFUSION LUNG SCAN. MILD HETEROGENOUS ACTIVITY SECONDARY TO UNDERLYING LUNG DIS EASE. TECHNICAL DOCUMENTATION: JOB ID: [id number] [employer]- All Rights Reserved
[2017-04-07] MEDS: METOCLOPRAMIDE HCL INJ/PF 10 MG/2 ML SDV IV SCH ×2 (15:23→22:23)
[2017-04-07] MEDS: LANSOPRAZOLE 30 MG TAB.RAP.DR PO SCH (16:38)
[2017-04-07] MEDS ORDERED: LORAZEPAM INJ 2 MG/1 ML VIAL IV ONE (16:45)
[2017-04-07] MEDS ORDERED: LORAZEPAM INJ 2 MG/1 ML VIAL ONE (16:53)
--- NOTE | 2017-04-07 17:56 | RADIOLOGY REPORT (SQ) ---
EXAM DESCRIPTION: CT ABD/PELVIS NO ORAL OR IV COMPLETED DATE/TIME: 04/07/2017 5:13 pm REASON FOR STUDY: chronic vomiting COMPARISON: None. TECHNIQUE: CT scan of the abdomen and pelvis performed without intravenous or oral contrast. Images reviewed with lung, soft tissue, and bone windows. Reconstructed coronal and sagittal MPR images revi ewed. All images stored on PACS. All CT scanners at this facility use dose modulation, iterative reconstruction, and/or weight based d osing when appropriate to reduce radiation dose to as low as reasonably achievable (ALARA). [facility]: Dose Right [facility]: CareDose [facility]: Dose Right [facility]: Teradose 4D [facility]: [employer] RADIATION DOSE: Up-to-date CT equipment and radiation dose reduction techniques were employed. CTDIv ol: 16.4 mGy. DLP: 909 mGy-cm.mGy. LIMITATIONS: None. FINDINGS: LOWER CHEST: Basilar motion artifact and scarring and atelectasis with some bronchial wall thickening and mucous plugging. Trace pleural fluid. Moderate hiatal hernia. NON-CONTRASTED LIVER, SPLEEN, ADRENALS: Evaluation limited by lack of IV contrast. No identified sign ificant masses. PANCREAS: Fatty atrophy in the head of the pancreas. No regional fluid collections or duct dilatatio n. GALLBLADDER: Surgically absent. RIGHT KIDNEY AND URETER: Contrast in the nondistended collecting system related to previous contraste d CT head from earlier. No gross mass. LEFT KIDNEY AND URETER: Similar findings to the right kidney. No gross mass or obstruction. AORTA AND RETROPERITONEUM: No aneurysm. No retroperitoneal masses or adenopathy. BOWEL AND PERITONEAL CAVITY: Diverticulosis in the distal colon. Mild to moderate stool. No active diverticulitis or evidence of bowel obstruction. No significant ascites. No abnormal gas collection s. APPENDIX: Normal. PELVIS, BLADDER, AND ABDOMINAL WALL:Bladder decompressed by Hamm catheter, mildly thick-walled appea gerald and partially filled with contrast. No pelvic mass or free fluid evident. No abdominal wall m ass or bowel containing hernia. BONES: Osteopenic. No evidence of overt fracture or bone lesion. OTHER: No other significant finding. IMPRESSION: 1. No acute or suspicious abdominopelvic abnormality. Lung base changes as above. TECHNICAL DOCUMENTATION: JOB ID: [id number] Quality ID # [id number]: Final reports with documentation of one or more dose reduction techniques (e.g., Au tomated exposure control, adjustment of the mA and/or kV according to patient size, use of iterative reconstruction technique) 2010 [employer]- All Rights Reserved
[2017-04-07] MEDS ORDERED: APIXABAN 5 MG TABLET PO SCH (18:00)
[2017-04-07] MEDS ORDERED: APIXABAN 2.5 MG TABLET PO SCH ×2 (18:00)
[2017-04-07] MEDS ORDERED: ACETYLCYSTEINE 20% SOLN 800 MG/4 ML VIAL.NEB NEB ONE (18:30)
[2017-04-07] MEDS ORDERED: IPRATROPIUM/ALBUTEROL 0.5-2.5 MG/3 ML AMPUL NEB ONE (18:30)
[2017-04-07] MEDS ORDERED: SENNOSIDES/DOCUSATE 8.6-50 MG 1 EACH TABLET PO ONE (18:30)
[2017-04-07] MEDS ORDERED: HALOPERIDOL LACTATE INJ 5 MG/1 ML VIAL IV PRN (18:34)
[2017-04-07] MEDS ORDERED: HALOPERIDOL LACTATE INJ 5 MG/1 ML VIAL ONE (18:47)
[2017-04-07 21:03] LABS: CREATINE KINASE MB 0.33 ng/mL (<4.55)
[2017-04-07 21:10] LABS: TROPONIN I < 0.012 ng/mL
[2017-04-07] MEDS ORDERED: LANSOPRAZOLE 30 MG TAB.RAP.DR PO SCH (22:00)
[2017-04-07] MEDS: BUDESONIDE/FORMOTEROL 160-4.5 MCG 60 PUFF/6 GM MDI IH SCH (22:23)
[2017-04-07] MEDS: NORMAL SALINE 1000 ML 1,000 ML IV PRN (23:03)
[2017-04-08] MEDS: IPRATROPIUM/ALBUTEROL 0.5-2.5 MG/3 ML AMPUL NEB SCH ×4 (02:34→20:32)
[2017-04-08 04:03] LABS: ABSOLUTE BASOPHILS # (AUTO) 0.1 10^3/uL (0.0-0.2); ABSOLUTE EOSINOPHILS # (AUTO) 0.2 10^3/uL (0.0-0.6); ABSOLUTE LYMPHOCYTES (AUTO) 0.8 10^3/uL (0.5-4.7); ABSOLUTE MONOCYTES (AUTO) 1.1 10^3/uL (0.1-1.4); ABSOLUTE NEUT (AUTO) 12.5 10^3/uL (1.7-8.2); BASOPHILS % (AUTO) 0.5 % (0-2); EOSINOPHILS % (AUTO) 1.2 % (0-6); HEMATOCRIT 36.1 % (36.0-47.0); HGB HCT DIFFERENCE -0.1; LYMPHOCYTES % (AUTO) 5.2 % (13-45); MEAN CORPUSCULAR HEMOGLOBIN 34.2 pg (27.0-33.4); MEAN CORPUSCULAR HGB CONC 33.1 g/dL (32.0-36.0); MEAN CORPUSCULAR VOLUME 103 fl (80-97); MONOCYTES % (AUTO) 7.8 % (3-13); RED BLOOD COUNT 3.51 10^6/uL (3.72-5.28); RED CELL DISTRIBUTION WIDTH 14.5 % (11.5-14.0); SEGMENTED NEUTROPHILS % (AUTO) 85.3 % (42-78)
[2017-04-08 04:04] LABS: WHITE BLOOD COUNT 14.7 10^3/uL (4.0-10.5)
[2017-04-08 04:12] LABS: ANION GAP 10 (5-19); BLOOD UREA NITROGEN 32 mg/dL (7-20); CALCIUM 9.4 mg/dL (8.4-10.2); CARBON DIOXIDE 26 mmol/L (22-30); CHLORIDE 107 mmol/L (98-107); CREATININE RESULT 1.46 mg/dL (0.52-1.25); GLUCOSE 121 mg/dL (75-110); SODIUM 143.1 mmol/L (137-145)
[2017-04-08] MEDS: LANSOPRAZOLE 30 MG TAB.RAP.DR PO SCH (05:50)
[2017-04-08] MEDS ORDERED: METHYLPREDNISOLONE INJ 125 MG/2 ML SDV IV ONE (07:32)
[2017-04-08] MEDS ORDERED: METHYLPREDNISOLONE INJ 125 MG/2 ML SDV ONE (07:35)
[2017-04-08] MEDS ORDERED: ALPRAZOLAM 0.5 MG TABLET PO PRN (07:39)
[2017-04-08] MEDS ORDERED: ALPRAZOLAM 0.5 MG TABLET PO ONE (07:39)
[2017-04-08] MEDS ORDERED: FUROSEMIDE INJ/PF 40 MG/4 ML SDV IV ONE (07:41)
[2017-04-08] MEDS ORDERED: PHARMACY COMMUNICATION ORDER MC NR (08:00)
[2017-04-08] MEDS ORDERED: ALPRAZOLAM 0.5 MG TABLET NG PRN (08:00)
[2017-04-08 08:03] LABS: ARTERIAL BLOOD BASE EXCESS -3.3 mmol/L; ARTERIAL BLOOD O2 SATURATION 93.3 % (94-98)
[2017-04-08 08:14] LABS: CREATINE KINASE MB 0.79 ng/mL (<4.55); TROPONIN I 0.014 ng/mL
[2017-04-08] MEDS ORDERED: LIDOCAINE 2% JELLY 30 ML TUBE TOP PRN (08:19)
[2017-04-08] MEDS: NORMAL SALINE 1000 ML 1,000 ML IV PRN (08:24)
--- NOTE | 2017-04-08 08:27 | RADIOLOGY REPORT (SQ) ---
EXAM DESCRIPTION: KUB/ABDOMEN (SINGLE VIEW) COMPLETED DATE/TIME: 04/08/2017 8:14 am REASON FOR STUDY: n/v COMPARISON: 04/07/2017 CT. NUMBER OF VIEWS: One view. TECHNIQUE: Supine radiographic image of the abdomen acquired. LIMITATIONS: None. FINDINGS: BOWEL GAS PATTERN: Nonobstructive. Large amount of stool in the colon. CALCIFICATIONS: 5 mm calcification projects over the pelvis in the region of the bladder. This could be artifact, debris in the fecal stream. Bladder location not excluded (bladder was filled with con trast limiting assessment on recent CT). SOFT TISSUES: No gross mass or suggestion of organomegaly. HARDWARE: Hamm catheter in the bladder. BONES: Osteopenia, scoliosis, spondylosis. OTHER: No other significant finding. IMPRESSION: 1. Nonobstructive bowel gas pattern. Fair amount of stool in the colon. 2. Artifact v ersus tiny bladder stone. TECHNICAL DOCUMENTATION: JOB ID: [id number] [employer]- All Rights Reserved
--- NOTE | 2017-04-08 08:29 | RADIOLOGY REPORT (SQ) ---
EXAM DESCRIPTION: CHEST SINGLE VIEW COMPLETED DATE/TIME: 04/08/2017 8:13 am REASON FOR STUDY: respiratory distress COMPARISON: 04/07/2017. FINDINGS: AP portable semi upright single-view chest. Worsening bibasilar airspace disease superimposed on interstitial prominence. No pneumothorax. Prob able COPD. Stable cardiomediastinal silhouette. IMPRESSION: 1. Worsening basilar aeration superimposed on chronic changes of interstitial disease/ C OPD. This could reflect pneumonia, including aspiration. Asymmetric basilar pulmonary edema also a consideration. TECHNICAL DOCUMENTATION: JOB ID: [id number]
[2017-04-08] MEDS ORDERED: BENZOCAINE 20% AEROSOL SPRAY 60 GM TP PRN (09:00)
[2017-04-08] MEDS ORDERED: LORAZEPAM INJ 2 MG/1 ML VIAL IV ONE (09:00)
[2017-04-08] MEDS: METOCLOPRAMIDE HCL INJ/PF 10 MG/2 ML SDV IV SCH ×4 (09:06→22:33)
[2017-04-08] MEDS: CEFTRIAXONE 1 GM/D5W RTU 1 GM/50 ML RTUPB IV SCH (09:07)
[2017-04-08] MEDS: TIOTROPIUM BROMIDE DPI 5 CAP/KIT (18 MCG/CAP) IH SCH (09:14)
[2017-04-08] MEDS: BUDESONIDE/FORMOTEROL 160-4.5 MCG 60 PUFF/6 GM MDI IH SCH ×2 (09:14→22:31)
[2017-04-08] MEDS: ATORVASTATIN CALCIUM 80 MG TABLET NG SCH (09:14)
[2017-04-08] MEDS: APIXABAN 5 MG TABLET NG SCH ×2 (09:14→17:06)
[2017-04-08] MEDS: ASPIRIN 81 MG TABLET, CHEWABLE NG SCH (09:14)
[2017-04-08] MEDS ORDERED: MINERAL OIL 30 ML UDCUP PR ONE (10:00)
[2017-04-08] MEDS ORDERED: SORBITOL 70% SOLUTION 30 ML UDC PR ONE (10:00)
[2017-04-08] MEDS ORDERED: ASPIRIN 325 MG TABLET, ENT COATED PO SCH (10:00)
[2017-04-08] MEDS ORDERED: DOCUSATE SODIUM 100 MG/10 ML UDC NG SCH (10:00)
[2017-04-08] MEDS ORDERED: DOCUSATE SODIUM 100 MG CAPSULE PO SCH (10:00)
[2017-04-08] MEDS ORDERED: ENOXAPARIN SODIUM INJ 60 MG/0.6 ML DISP.SYRIN SUBCUT SCH (10:00)
[2017-04-08] MEDS ORDERED: GLYCERIN 99.5% (ANHYDROUS) 177 ML PR ONE (10:00)
[2017-04-08] MEDS ORDERED: MAGNESIUM HYDROXIDE SUSP 30 ML UDCUP PR ONE (10:00)
[2017-04-08] MEDS: MAGNESIUM OXIDE 400 MG TABLET NG SCH (11:17)
--- NOTE | 2017-04-08 11:34 | EKG REPORT ---
SEVERITY:- ABNORMAL ECG - SINUS RHYTHM ABNRM R PROG, CONSIDER ASMI OR LEAD PLACEMENT : Confirmed by: Malcolm Lo 08-Apr-2017 11:34:14
--- NOTE | 2017-04-08 11:34 | EKG REPORT ---
SEVERITY:- ABNORMAL ECG - SINUS RHYTHM PROBABLE ANTEROSEPTAL INFARCT, AGE INDETERM : Confirmed by: Malcolm Lo 08-Apr-2017 11:34:09
[2017-04-08] MEDS ORDERED: NORMAL SALINE 1000 ML 1,000 ML IV PRN (12:34)
--- NOTE | 2017-04-08 13:09 | PDOC PROGRESS REPORT ---
Subjective Progress Note for:: 04/08/17 Subjective:: Patient seems to be doing better with gradual improvement. Patient now off vasopressors. Patient however noted wearing bilevel therapy because of some respiratory difficulty and respiratory distress. Patient has history of significant COPD. Chest x-ray today shows CHF. Pt is denying any chest arm or neck discomfort. Patient denying any PND, orthopnea. Patient denied any sustained palpitations, dizziness, syncope, near syncope. Patient denying any fever chills. Patient denying any other significant discomfort. Patient is maintaining sinus rhythm. Review of systems: Rest review of systems negative. Medications: Medications have been reviewed. Physical Exam Vital Signs: Temp Pulse Resp BP Pulse Ox 99.9 F 65 19 125/53 L 96 04/08/17 07:00 04/08/17 12:00 04/08/17 12:00 04/08/17 12:00 04/08/17 12:00 Intake & Output 04/07/17 04/08/17 04/09/17 06:59 06:59 06:59 Intake Total 6631 Output Total 1715 1550 Balance 4916 -1550 Weight 86.2 kg 89.2 kg Exam: GENERAL: well-nourished and in no acute distress. Alert and oriented x3 HEAD: Atraumatic, normocephalic. EYES: Pupils equal round and reactive to light, extraocular movements intact, sclera anicteric, conjunctiva are normal. 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 ENT: TMs normal, nares patent, oropharynx clear without exudates. Moist mucous membranes. No oral ulcerations or bleeding gums noted NECK: supple without lymphadenopathy. Trachea is central. No cervical or axillary lymphadenopathy noted. Carotids are 2+, JVD WNL LUNGS: Respiration seems nonlabored, no significant accessory muscle action noted. Bibasilar fine crackles noted. CHEST: Palpation of the chest wall shows no significant chest wall tenderness. No other significant abnormalities noted. HEART: [place] [employer], No PSH, 1/6 MARTIN aortic area, 1/6 herrera systolic murmur mitral area, no rubs, no gallops. ABDOMEN: Soft, no significant tenderness appreciated, normoactive bowel sounds. No guarding, no rebound. No rigidity noted . No masses appreciated. EXTREMITIES: Pedal pulses are 1-2+, no calf tenderness noted. No clubbing or cyanosis.trace to 1+ pedal edema noted NEUROLOGICAL: Focused neurological exam showed blindness left eye. Minimal left -sided weakness noted. PSYCH: Normal mood, normal affect. Judgment and insight within normal limits. SKIN: No significant ecchymosis, rash, ulcerations or signs of pruritus noted. MUSCULOSKELETAL EXAM: No significant joint swelling noted. Results Laboratory Results: 04/08/17 03:36 04/08/17 03:36 04/07/17 04/07/17 04/07/17 12:50 12:50 13:37 WBC RBC Hgb Hct MCV MCH MCHC RDW Plt Count Seg Neutrophils % Lymphocytes % Monocytes % Eosinophils % Basophils % Absolute Neutrophils Absolute Lymphocytes Absolute Monocytes Absolute Eosinophils Absolute Basophils Carbonic Acid HCO3/H2CO3 Ratio ABG pH ABG pCO2 ABG pO2 ABG HCO3 ABG O2 Saturation ABG Base Excess FiO2 Sodium Cancelled Potassium Cancelled Chloride Cancelled Carbon Dioxide Cancelled Anion Gap Cancelled BUN Cancelled Creatinine Cancelled Est GFR ( Amer) Cancelled Est GFR (Non-Af Amer) Cancelled Glucose Cancelled Calcium Cancelled Ionized Calcium Bryan 1.19 Magnesium Cancelled TSH 0.51 04/07/17 04/08/17 04/08/17 13:37 03:36 03:36 WBC 14.7 H D RBC 3.51 L Hgb 12.0 Hct 36.1 MCV 103 H MCH 34.2 H MCHC 33.1 RDW 14.5 H Plt Count 216 Seg Neutrophils % 85.3 H Lymphocytes % 5.2 L Monocytes % 7.8 Eosinophils % 1.2 Basophils % 0.5 Absolute Neutrophils 12.5 H Absolute Lymphocytes 0.8 Absolute Monocytes 1.1 Absolute Eosinophils 0.2 Absolute Basophils 0.1 Carbonic Acid HCO3/H2CO3 Ratio ABG pH ABG pCO2 ABG pO2 ABG HCO3 ABG O2 Saturation ABG Base Excess FiO2 Sodium 138.8 143.1 Potassium 4.2 5.0 Chloride 101 107 Carbon Dioxide 27 26 Anion Gap 11 10 BUN 39 H 32 H Creatinine 1.63 H 1.46 H Est GFR ( Amer) 37 L 42 L Est GFR (Non-Af Amer) 31 L 35 L Glucose 114 H 121 H Calcium 9.5 9.4 Ionized Calcium Bryan Magnesium 1.9 TSH 04/08/17 07:47 WBC RBC Hgb Hct MCV MCH MCHC RDW Plt Count Seg Neutrophils % Lymphocytes % Monocytes % Eosinophils % Basophils % Absolute Neutrophils Absolute Lymphocytes Absolute Monocytes Absolute Eosinophils Absolute Basophils Carbonic Acid 1.25 HCO3/H2CO3 Ratio 17:1 ABG pH 7.35 ABG pCO2 41.5 ABG pO2 70.3 L ABG HCO3 22.1 ABG O2 Saturation 93.3 L ABG Base Excess -3.3 FiO2 60% Sodium Potassium Chloride Carbon Dioxide Anion Gap BUN Creatinine Est GFR ( Amer) Est GFR (Non-Af Amer) Glucose Calcium Ionized Calcium Bryan Magnesium TSH 04/07/17 04/07/17 04/07/17 08:10 08:10 13:37 Creatine Kinase 28 L 22 L CK-MB (CK-2) 0.57 Troponin I < 0.012 04/07/17 04/07/17 04/07/17 13:37 20:28 20:28 Creatine Kinase 36 CK-MB (CK-2) 0.61 0.33 Troponin I < 0.012 < 0.012 04/08/17 04/08/17 07:37 07:37 Creatine Kinase 29 L CK-MB (CK-2) 0.79 Troponin I 0.014 Impressions: Abdomen/Pelvis CT 04/07/17 00:00 IMPRESSION: 1. No acute or suspicious abdominopelvic abnormality. Lung base changes as above. Lung Scan-VQ NM 04/07/17 00:00 IMPRESSION: NORMAL PERFUSION LUNG SCAN. MILD HETEROGENOUS ACTIVITY SECONDARY TO UNDERLYING LUNG DISEASE. Head CT 04/07/17 02:02 IMPRESSION: No enhancing mass. Chronic changes of atrophy and microvascular ischemia. Low density area in the right occipital lobe, may correspond to the patient's prior infarct. Please correlate with clinical history/ exam. Comparison with prior studies would be helpful. Otherwise, MRI can help in further evaluation. Chest X-Ray 04/08/17 00:00 IMPRESSION: 1. Worsening basilar aeration superimposed on chronic changes of interstitial disease/ COPD. This could reflect pneumonia, including aspiration. Asymmetric basilar pulmonary edema also a consideration. KUB X-Ray 04/08/17 00:00 IMPRESSION: 1. Nonobstructive bowel gas pattern. Fair amount of stool in the colon. 2. Artifact versus tiny bladder stone. Assessment & Plan - Diagnosis (1) Acute CVA (cerebrovascular accident) Is this a current diagnosis for this admission?: Yes (2) Bradycardia with 41-50 beats per minute Is this a current diagnosis for this admission?: Yes (3) Hypotension Is this a current diagnosis for this admission?: Yes (4) Toxic effect of beta wally Is this a current diagnosis for this admission?: Yes (5) Coronary artery disease Qualifiers: Coronary Disease-Associated Artery/Lesion type: [place] artery Associated angina: angina presence unspecified Is this a current diagnosis for this admission?: Yes (6) Acute on chronic diastolic heart failure Is this a current diagnosis for this admission?: Yes (7) PAF (paroxysmal atrial fibrillation) Is this a current diagnosis for this admission?: Yes - Notes Notes: Lasix 20 mg IV 1 dose ordered. Chest x-ray reviewed. EKG reviewed. Bradycardia: Currently resolved. Most likely related to excess beta-wally intake but could well be related to sick sinus syndrome, possible vagal tone increase. Patient now off vasopressors. Continue a scopolamine patch. Hypotension: This has resolved. Possibly related to excess antihypertensive and possible underlying hypovolemia. Agree with IV fluids and use of vasopressors. Cerebrovascular accident: Difficult to assess whether it is acute or chronic. Possible seizures. Continue to observe. Review of records shows that patient has paroxysmal atrial fibrillation. Therefore agree with starting Eliquis and continuing it. Coronary artery disease: Currently stable. Recommend resuming beta-wally when heart rate improves, JUN inhibitor/ARB, statins and antiplatelet therapy. Congestive heart failure: Acute on chronic diastolic heart failure. Chest x- ray shows pulmonary venous congestion. Feel that this is congestive heart failure acute on chronic may have been brought on by aggressive fluid resuscitation for hypotension. Will give 1 dose of IV Lasix. Have ordered a BNP level. Paroxysmal atrial fibrillation: Recommend rate control. Patient currently in sinus rhythm. Agree with starting Eliquis therapy. - Time Time with patient: Greater than 35 minutes - CODE STATUS was discussed, patient remains full code. Surrogate decision-maker unchanged. Multiple medical problems were addressed. More than 50% of the time spent coordinating care, discussing management plans with involved caregivers. Management plans discussed with involved personnels. Medical decision making was of moderate to high complexity, patient's has multiple comorbidities. Medications reviewed and adjusted accordingly: Yes
[2017-04-08] MEDS ORDERED: FUROSEMIDE INJ/PF 20 MG/2 ML SDV IV ONE (13:30)
[2017-04-08] MEDS ORDERED: METOPROLOL TARTRATE PF/INJ 5 MG/5 ML SDV IV ONE (13:45)
[2017-04-08] MEDS ORDERED: ERTAPENEM SODIUM 1 GM in NORMAL SALINE 50 ML IV SCH (14:00)
[2017-04-08] MEDS ORDERED: METHYLPREDNISOLONE INJ 125 MG/2 ML SDV IV SCH (14:00)
[2017-04-08] MEDS: ACETYLCYSTEINE 20% SOLN 800 MG/4 ML VIAL.NEB NEB SCH ×2 (15:21→20:32)
[2017-04-08] MEDS ORDERED: METOPROLOL TARTRATE PF/INJ 5 MG/5 ML SDV IV PRN (16:35)
--- NOTE | 2017-04-08 16:55 | RADIOLOGY REPORT (SQ) ---
EXAM DESCRIPTION: MRI HEAD WITHOUT COMPLETED DATE/TIME: 04/08/2017 4:39 pm REASON FOR STUDY: Recent CVA? additional CVA COMPARISON: None. TECHNIQUE: Multiplanar imaging includes non-contrasted T1, T2, FLAIR, and diffusion with ADC map seq uences. Images stored on PACS. LIMITATIONS: None. FINDINGS: ANATOMY: No anomalies. Normal vascular flow voids. Pituitary fossa normal. CSF SPACES: Atrophy induced prominence of ventricles and CSF spaces. CEREBRUM: High signal intensity lesions scattered throughout the white matter on FLAIR imaging with d istribution suggesting micro-vascular ischemic changes. Old infarct in the right occipital lobe. No evidence of hemorrhage, mass, or extraaxial fluid collection. POSTERIOR FOSSA: No signal alteration. No hemorrhage. No edema, masses or mass effect. Internal melvin tory canals, cerebello-pontine angles, mastoids normal. DIFFUSION IMAGING: Small areas of restricted diffusion around the periphery of the right occipital lo be infarct. ORBITS: No masses. Globes normal. PARANASAL SINUSES: No fluid levels. Mucosa normal. OTHER: No other significant finding. IMPRESSION: ATROPHY AND CHRONIC MICRO-VASCULAR ISCHEMIC CHANGES. OLD INFARCT IN THE RIGHT OCCIPITAL LOBE. THERE ARE SMALL AREAS OF RESTRICTED PERFUSION AROUND THE PERIPHERY WHICH MAY INDICATE RECENT ACUTE INFARCTION SUPERIMPOSED ON OLD INFARCT. EVIDENCE OF ACUTE STROKE: NO. TECHNICAL DOCUMENTATION: JOB ID: [id number] [employer]- All Rights Reserved
--- NOTE | 2017-04-08 16:58 | PDOC PROGRESS REPORT ---
Subjective Progress Note for:: 04/08/17 Subjective:: Called to patient bedside for shortness of breath and chest pain. Patient placed back on Bipap Patient also complained of nausea and vomiting. Still no BM. Physical Exam Vital Signs: Temp Pulse Resp BP Pulse Ox 99.9 F 61 27 H 139/55 H 88 L 04/08/17 07:00 04/08/17 04:00 04/08/17 07:00 04/08/17 06:57 04/08/17 07:00 Intake & Output 04/07/17 04/08/17 04/09/17 06:59 06:59 06:59 Intake Total 6631 Output Total 1715 Balance 4916 Weight 86.2 kg 89.2 kg Exam: General: Awake alert and oriented x2, moderate respiratory distress on Bipap HEENT: AT/NC, PERRL, EOMI, oropharynx is dry, pink, no scleral icterus, no conjunctival injection Neck: No JVD, trachea midline Chest: Prolonged expiratory phase, wheezes and rales bilaterally CV: Regular rate and rhythm, normal S1 and S2, no rub or gallop; +2/6 SM LUSB Abdomen: Soft, nontender to palpation, nondistended, hypoactive bowel sounds; no rebound, rigidity, or guarding Extremities: No cyanosis; mild clubbing, trace edema Neuro: mild dysarthria, right sided facial droop, chronic left eye vision loss; awake alert and oriented x2 Psych: Normal mood and affect Skin: No rashes or worrisome lesions Results Laboratory Results: 04/08/17 03:36 04/08/17 03:36 04/07/17 04/07/17 04/07/17 07:30 12:50 12:50 WBC RBC Hgb Hct MCV MCH MCHC RDW Plt Count Seg Neutrophils % Lymphocytes % Monocytes % Eosinophils % Basophils % Absolute Neutrophils Absolute Lymphocytes Absolute Monocytes Absolute Eosinophils Absolute Basophils Carbonic Acid 1.84 H HCO3/H2CO3 Ratio 16:1 ABG pH 7.30 L ABG pCO2 61.2 H ABG pO2 131.2 H ABG HCO3 29.6 H ABG O2 Saturation 98.3 H ABG Base Excess 2.0 FiO2 60% Sodium Cancelled Potassium Cancelled Chloride Cancelled Carbon Dioxide Cancelled Anion Gap Cancelled BUN Cancelled Creatinine Cancelled Est GFR ( Amer) Cancelled Est GFR (Non-Af Amer) Cancelled Glucose Cancelled Calcium Cancelled Ionized Calcium Bryan Magnesium Cancelled TSH 0.51 04/07/17 04/07/17 04/08/17 13:37 13:37 03:36 WBC 14.7 H D RBC 3.51 L Hgb 12.0 Hct 36.1 MCV 103 H MCH 34.2 H MCHC 33.1 RDW 14.5 H Plt Count 216 Seg Neutrophils % 85.3 H Lymphocytes % 5.2 L Monocytes % 7.8 Eosinophils % 1.2 Basophils % 0.5 Absolute Neutrophils 12.5 H Absolute Lymphocytes 0.8 Absolute Monocytes 1.1 Absolute Eosinophils 0.2 Absolute Basophils 0.1 Carbonic Acid HCO3/H2CO3 Ratio ABG pH ABG pCO2 ABG pO2 ABG HCO3 ABG O2 Saturation ABG Base Excess FiO2 Sodium 138.8 Potassium 4.2 Chloride 101 Carbon Dioxide 27 Anion Gap 11 BUN 39 H Creatinine 1.63 H Est GFR ( Amer) 37 L Est GFR (Non-Af Amer) 31 L Glucose 114 H Calcium 9.5 Ionized Calcium Bryan 1.19 Magnesium 1.9 TSH 04/08/17 03:36 WBC RBC Hgb Hct MCV MCH MCHC RDW Plt Count Seg Neutrophils % Lymphocytes % Monocytes % Eosinophils % Basophils % Absolute Neutrophils Absolute Lymphocytes Absolute Monocytes Absolute Eosinophils Absolute Basophils Carbonic Acid HCO3/H2CO3 Ratio ABG pH ABG pCO2 ABG pO2 ABG HCO3 ABG O2 Saturation ABG Base Excess FiO2 Sodium 143.1 Potassium 5.0 Chloride 107 Carbon Dioxide 26 Anion Gap 10 BUN 32 H Creatinine 1.46 H Est GFR ( Amer) 42 L Est GFR (Non-Af Amer) 35 L Glucose 121 H Calcium 9.4 Ionized Calcium Bryan Magnesium TSH 04/07/17 04/07/17 04/07/17 08:10 08:10 13:37 Creatine Kinase 28 L 22 L CK-MB (CK-2) 0.57 Troponin I < 0.012 04/07/17 04/07/17 04/07/17 13:37 20:28 20:28 Creatine Kinase 36 CK-MB (CK-2) 0.61 0.33 Troponin I < 0.012 < 0.012 Impressions: Abdomen/Pelvis CT 04/07/17 00:00 IMPRESSION: 1. No acute or suspicious abdominopelvic abnormality. Lung base changes as above. Lung Scan-VQ NM 04/07/17 00:00 IMPRESSION: NORMAL PERFUSION LUNG SCAN. MILD HETEROGENOUS ACTIVITY SECONDARY TO UNDERLYING LUNG DISEASE. Chest X-Ray 04/07/17 01:30 IMPRESSION: Emphysema. 7 mm nodule in the right upper lobe, CT thorax can help in better evaluation. Head CT 04/07/17 02:02 IMPRESSION: No enhancing mass. Chronic changes of atrophy and microvascular ischemia. Low density area in the right occipital lobe, may correspond to the patient's prior infarct. Please correlate with clinical history/ exam. Comparison with prior studies would be helpful. Otherwise, MRI can help in further evaluation. Assessment & Plan - Diagnosis (1) Acute on chronic diastolic heart failure Is this a current diagnosis for this admission?: Yes Plan: Give patient 40 mg of IV Lasix now. Resume patient's home Imdur, Ranexa, and carvedilol No JUN/ARB secondary to chronic renal failure (2) Atrial fibrillation with RVR Is this a current diagnosis for this admission?: Yes Plan: Patient has a history of paroxysmal atrial fibrillation. She is normally on Coreg. Prior to now her blood pressure would not tolerate reinitiation of her medication. Patient subsequently went into A. fib with RVR and was given metoprolol and her home Coreg. Coreg has been resumed now that patient is off of pressors. Patient's Eliquis has been continued. VQ scan done yesterday was negative. (3) COPD with exacerbation Is this a current diagnosis for this admission?: Yes Plan: Initiate patient on Solu-Medrol. Obtain chest x-ray and new scheduled nebulized treatments (4) UTI (urinary tract infection) Qualifiers: Urinary tract infection type: acute cystitis Is this a current diagnosis for this admission?: Yes Plan: Pending blood and urine cultures Transition from Rocephin to ertapenem as patient is currently and continues to be increasingly febrile. (5) Benzodiazepine dependence Is this a current diagnosis for this admission?: Yes Plan: Patient was found to have a prescription for Ativan 1 mg #30 filled on 2016 and Xanax 1 mg #60 filled on 04/02. Patient previously had a prescription for Xanax 1 mg #60 filled on 02/21 will resume Xanax 1 mg. P.o. twice daily as needed (6) Septic shock Is this a current diagnosis for this admission?: Yes Plan: Patient currently off pressors, and difficulty dealing with the amount of volume she required for resuscitation. (7) CVA, old, dysarthria Is this a current diagnosis for this admission?: Yes Plan: Patient presented with dysarthria and rhythmic movements. Questionable new versus old CVA. CT scan suggests subacute or old infarct. Timeline does not support acute CVA, but in light of convoluted presentation will obtain an MRI. Carotid Doppler done at [facility] and we have requested these record. (8) Coronary artery disease Qualifiers: Coronary Disease-Associated Artery/Lesion type: [place] artery Associated angina: angina presence unspecified Is this a current diagnosis for this admission?: Yes Plan: Unable to tolerate JUN/ARB secondary to renal failure Generic Name Dose Route Start Last Admin Trade Name Ish PRN Reason Stop Dose Admin Aspirin 81 mg 04/08/17 10:00 04/08/17 09:14 Aspirin 81 Mg Chewable Tablet NG 05/08/17 09:59 Not Given DAILY GIOVANNY Atorvastatin Calcium 80 mg 04/08/17 10:00 04/08/17 09:14 Lipitor 80 Mg Tablet NG 05/07/17 04:29 Not Given DAILY GIOVANNY Carvedilol 12.5 mg 04/08/17 22:00 Coreg 12.5 Mg Tablet PO 05/08/17 21:59 Q12 GIOVANNY Isosorbide Mononitrate 60 mg 04/09/17 10:00 Imdur 60 Mg Tablet.Er PO 05/09/17 09:59 DAILY GIOVANNY (9) Acute on chronic respiratory failure with hypoxemia Is this a current diagnosis for this admission?: Yes Plan: Patient's son reports to me that she was normally on oxygen prior to discharge from rehab. VQ scan is negative patient's creatinine would not tolerate a CTA. Continue to maintain oxygenation greater than 90%. Patient continues to require BiPAP Obtain ABG (10) CKD (chronic kidney disease), stage III Is this a current diagnosis for this admission?: Yes (11) Obesity with serious comorbidity Qualifiers: Obesity classification: adult class 1 (BMI 30 ? 34.9) Body mass index: BMI 31.0-31.9 Is this a current diagnosis for this admission?: Yes - Time Time Spent with patient: 35 or more minutes Critical Time spent with patient: 35 or more minutes Medications reviewed and adjusted accordingly: Yes Anticipated discharge: Acute Rehab
[2017-04-08] MEDS: LANSOPRAZOLE 30 MG TAB.RAP.DR NG SCH (17:06)
[2017-04-08] MEDS ORDERED: BISACODYL 5 MG TABEC PO ONE (19:15)
[2017-04-08] MEDS ORDERED: RANOLAZINE 500 MG TAB.SR.12H PO SCH (22:00)
[2017-04-08] MEDS ORDERED: CARVEDILOL 12.5 MG TABLET PO SCH (22:00)
[2017-04-08] MEDS ORDERED: (PENDING PHARMACY ID) (Ranolazine [Ranexa] 1,000 MG) PO SCH (22:00)
[2017-04-08] MEDS: SENNOSIDES/DOCUSATE 8.6-50 MG 1 EACH TABLET NG SCH (22:32)
[2017-04-08] MEDS: METHYLPREDNISOLONE INJ 125 MG/2 ML SDV IV SCH (22:33)
[2017-04-08] MEDS: GABAPENTIN 300 MG CAPSULE PO SCH (22:33)
[2017-04-09] MEDS: IPRATROPIUM/ALBUTEROL 0.5-2.5 MG/3 ML AMPUL NEB SCH ×4 (02:09→20:27)
[2017-04-09 06:15] LABS: ABSOLUTE LYMPHOCYTES (AUTO) 0.7 10^3/uL (0.5-4.7); ABSOLUTE MONOCYTES (AUTO) 0.3 10^3/uL (0.1-1.4); ABSOLUTE NEUT (AUTO) 11.9 10^3/uL (1.7-8.2); BASOPHILS % (AUTO) 0.2 % (0-2); HEMOGLOBIN 11.5 g/dL (12.0-15.5); HGB HCT DIFFERENCE 1.5; LYMPHOCYTES % (AUTO) 5.1 % (13-45); MEAN CORPUSCULAR HGB CONC 34.8 g/dL (32.0-36.0); MEAN CORPUSCULAR VOLUME 101 fl (80-97); MONOCYTES % (AUTO) 2.7 % (3-13); RED BLOOD COUNT 3.28 10^6/uL (3.72-5.28); RED CELL DISTRIBUTION WIDTH 14.2 % (11.5-14.0); WHITE BLOOD COUNT 12.9 10^3/uL (4.0-10.5)
[2017-04-09] MEDS: METHYLPREDNISOLONE INJ 125 MG/2 ML SDV IV SCH ×3 (06:18→22:35)
[2017-04-09] MEDS: LANSOPRAZOLE 30 MG TAB.RAP.DR NG SCH ×2 (06:18→16:36)
[2017-04-09] MEDS: GABAPENTIN 300 MG CAPSULE PO SCH ×3 (06:18→22:36)
[2017-04-09 06:19] LABS: ANION GAP 13 (5-19); BLOOD UREA NITROGEN 32 mg/dL (7-20); CALCIUM 9.7 mg/dL (8.4-10.2); CARBON DIOXIDE 27 mmol/L (22-30); CHLORIDE 103 mmol/L (98-107); CREATININE RESULT 1.13 mg/dL (0.52-1.25); GLUCOSE 153 mg/dL (75-110); MAGNESIUM 2.1 mg/dL (1.6-2.3); POTASSIUM 3.4 mmol/L (3.6-5.0); SODIUM 142.7 mmol/L (137-145)
--- NOTE | 2017-04-09 07:17 | RADIOLOGY REPORT (SQ) ---
EXAM DESCRIPTION: CHEST SINGLE VIEW COMPLETED DATE/TIME: 04/09/2017 7:01 am REASON FOR STUDY: respiratory failure COMPARISON: Chest x-ray 04/08/2017. EXAM PARAMETERS: NUMBER OF VIEWS: One view. TECHNIQUE: Single frontal radiographic view of the chest acquired. RADIATION DOSE: NA LIMITATIONS: None. FINDINGS: LUNGS AND PLEURA: There is diffuse interstitial prominence, probably representing chronic change. There is pleural scarring at the left lung base. There are bibasilar airspace opacities. N o pneumothorax. Hyperlucent lungs, suggestive of emphysema. MEDIASTINUM AND HILAR STRUCTURES: No masses. Contour normal. HEART AND VASCULAR STRUCTURES: Heart normal in size. No overt vascular congestion. BONES: No acute findings. HARDWARE: None in the chest. IMPRESSION: Emphysema. Airspace opacities at the bilateral lung bases, may represent atelectasis or superimposed pneumonia. TECHNICAL DOCUMENTATION: JOB ID: [id number]
[2017-04-09] MEDS: ACETYLCYSTEINE 20% SOLN 800 MG/4 ML VIAL.NEB NEB SCH ×2 (07:48→20:27)
[2017-04-09] MEDS ORDERED: POTASSIUM CHLORIDE 10 MEQ TABLET.SA PO ONE (07:53)
[2017-04-09] MEDS ORDERED: MINERAL OIL 30 ML UDCUP PR ONE (09:00)
[2017-04-09] MEDS ORDERED: GLYCERIN 99.5% (ANHYDROUS) 177 ML PR ONE (09:00)
[2017-04-09] MEDS ORDERED: MAGNESIUM HYDROXIDE SUSP 30 ML UDCUP PR ONE (09:00)
[2017-04-09] MEDS ORDERED: SORBITOL 70% SOLUTION 30 ML UDC PR ONE (09:00)
[2017-04-09] MEDS: APIXABAN 5 MG TABLET NG SCH ×2 (09:46→18:21)
[2017-04-09] MEDS ORDERED: ISOSORBIDE MONONITRATE 30 MG TAB.ER.24H PO SCH (10:00)
[2017-04-09] MEDS ORDERED: RANOLAZINE 500 MG TAB.SR.12H PO SCH (10:00)
[2017-04-09] MEDS: TIOTROPIUM BROMIDE DPI 5 CAP/KIT (18 MCG/CAP) IH SCH (10:01)
[2017-04-09] MEDS: DOXYCYCLINE HYCLATE 100 MG TABLET PO SCH ×2 (10:01→22:37)
[2017-04-09] MEDS: AMLODIPINE BESYLATE 5 MG TABLET PO SCH (10:02)
--- NOTE | 2017-04-09 10:02 | PDOC PROGRESS REPORT ---
Subjective Progress Note for:: 04/09/17 Subjective:: Patient seems to be doing better with gradual improvement. Patient now off vasopressors. Patient feels much better. Patient denied any sustained palpitations, dizziness, syncope, near syncope. Patient denying any fever chills. Patient denying any other significant discomfort. Patient now reverted back to atrial fibrillation. Review of systems: Rest review of systems negative. Medications: Medications have been reviewed. Physical Exam Vital Signs: Temp Pulse Resp BP Pulse Ox 97.7 F 94 20 158/71 H 96 04/09/17 08:17 04/09/17 07:53 04/09/17 08:17 04/09/17 08:17 04/09/17 08:17 Intake & Output 04/08/17 04/09/17 04/10/17 06:59 06:59 06:59 Intake Total 6631 878 Output Total 1715 5375 40 Balance 4916 -4497 -40 Weight 89.2 kg 84.9 kg Exam: GENERAL: well-nourished and in no acute distress. Alert and oriented x3 HEAD: Atraumatic, normocephalic. EYES: Pupils equal round and reactive to light, extraocular movements intact, sclera anicteric, conjunctiva are normal. Patient blind in the left eye. ENT: TMs normal, nares patent, oropharynx clear without exudates. Moist mucous membranes. No oral ulcerations or bleeding gums noted NECK: supple without lymphadenopathy. Trachea is central. No cervical or axillary lymphadenopathy noted. Carotids are 2+, JVD WNL LUNGS: Respiration seems nonlabored, no significant accessory muscle action noted. Bibasilar fine crackles noted. Mild bilateral wheezing noted. CHEST: Palpation of the chest wall shows no significant chest wall tenderness. No other significant abnormalities noted. HEART: [employer], No PSH, 1/6 MARTIN aortic area, 1/6 herrera systolic murmur mitral area, no rubs, no gallops. ABDOMEN: Soft, no significant tenderness appreciated, normoactive bowel sounds. No guarding, no rebound. No rigidity noted . No masses appreciated. EXTREMITIES: Pedal pulses are 1-2+, no calf tenderness noted. No clubbing or cyanosis.trace to 1+ pedal edema noted NEUROLOGICAL: Focused neurological exam showed cortical blindness left eye, minimal weakness left side. PSYCH: Normal mood, normal affect. Judgment and insight within normal limits. SKIN: No significant ecchymosis, rash, ulcerations or signs of pruritus noted. MUSCULOSKELETAL EXAM: No significant joint swelling noted. Results Laboratory Results: 04/09/17 05:13 04/09/17 05:13 04/09/17 04/09/17 04/09/17 05:13 05:13 05:13 WBC 12.9 H RBC 3.28 L Hgb 11.5 L Hct 33.0 L MCV 101 H MCH 35.0 H MCHC 34.8 RDW 14.2 H Plt Count 201 Seg Neutrophils % 92.0 H Lymphocytes % 5.1 L Monocytes % 2.7 L Eosinophils % 0.0 Basophils % 0.2 Absolute Neutrophils 11.9 H Absolute Lymphocytes 0.7 Absolute Monocytes 0.3 Absolute Eosinophils 0.0 Absolute Basophils 0.0 Retic Count (auto) 0.72 Absolute Retic 0.024 L Sodium 142.7 Potassium 3.4 L Chloride 103 Carbon Dioxide 27 Anion Gap 13 BUN 32 H Creatinine 1.13 Est GFR ( Amer) 57 L Est GFR (Non-Af Amer) 47 L Glucose 153 H Calcium 9.7 Phosphorus 3.0 Magnesium 2.1 04/09/17 05:13 WBC RBC Hgb Hct MCV MCH MCHC RDW Plt Count Seg Neutrophils % Lymphocytes % Monocytes % Eosinophils % Basophils % Absolute Neutrophils Absolute Lymphocytes Absolute Monocytes Absolute Eosinophils Absolute Basophils Retic Count (auto) Absolute Retic Sodium Potassium Chloride Carbon Dioxide Anion Gap BUN Creatinine Est GFR ( Amer) Est GFR (Non-Af Amer) Glucose Calcium Phosphorus Magnesium 2.1 04/07/17 04/07/17 04/07/17 08:10 08:10 13:37 Creatine Kinase 28 L 22 L CK-MB (CK-2) 0.57 Troponin I < 0.012 NT-Pro-B Natriuret Pep 04/07/17 04/07/17 04/07/17 13:37 20:28 20:28 Creatine Kinase 36 CK-MB (CK-2) 0.61 0.33 Troponin I < 0.012 < 0.012 NT-Pro-B Natriuret Pep 04/08/17 04/08/17 04/08/17 07:37 07:37 07:37 Creatine Kinase 29 L CK-MB (CK-2) 0.79 Troponin I 0.014 NT-Pro-B Natriuret Pep 02141 H EKG Comments: Telemetry strips shows atrial fibrillation with controlled ventricular response. Impressions: Abdomen/Pelvis CT 04/07/17 00:00 IMPRESSION: 1. No acute or suspicious abdominopelvic abnormality. Lung base changes as above. Lung Scan-VQ NM 04/07/17 00:00 IMPRESSION: NORMAL PERFUSION LUNG SCAN. MILD HETEROGENOUS ACTIVITY SECONDARY TO UNDERLYING LUNG DISEASE. Head CT 04/07/17 02:02 IMPRESSION: No enhancing mass. Chronic changes of atrophy and microvascular ischemia. Low density area in the right occipital lobe, may correspond to the patient's prior infarct. Please correlate with clinical history/ exam. Comparison with prior studies would be helpful. Otherwise, MRI can help in further evaluation. Head MRI 04/08/17 00:00 IMPRESSION: ATROPHY AND CHRONIC MICRO-VASCULAR ISCHEMIC CHANGES. OLD INFARCT IN THE RIGHT OCCIPITAL LOBE. THERE ARE SMALL AREAS OF RESTRICTED PERFUSION AROUND THE PERIPHERY WHICH MAY INDICATE RECENT ACUTE INFARCTION SUPERIMPOSED ON OLD INFARCT. EVIDENCE OF ACUTE STROKE: NO. KUB X-Ray 04/08/17 00:00 IMPRESSION: 1. Nonobstructive bowel gas pattern. Fair amount of stool in the colon. 2. Artifact versus tiny bladder stone. Chest X-Ray 04/09/17 06:00 IMPRESSION: Emphysema. Airspace opacities at the bilateral lung bases, may represent atelectasis or superimposed pneumonia. Assessment & Plan - Diagnosis (1) Acute CVA (cerebrovascular accident) Is this a current diagnosis for this admission?: Yes (2) Bradycardia with 41-50 beats per minute Is this a current diagnosis for this admission?: Yes (3) Hypotension Is this a current diagnosis for this admission?: Yes (4) Toxic effect of beta wally Is this a current diagnosis for this admission?: Yes (5) Coronary artery disease Qualifiers: Coronary Disease-Associated Artery/Lesion type: [place] artery Associated angina: angina presence unspecified Is this a current diagnosis for this admission?: Yes (6) Acute on chronic diastolic heart failure Is this a current diagnosis for this admission?: Yes (7) PAF (paroxysmal atrial fibrillation) Is this a current diagnosis for this admission?: Yes - Notes Notes: Chest x-ray shows pulmonary venous congestion and CHF. Start patient on Lasix 40 mg p.o. daily. Patient also reverted back to atrial fibrillation. Patient has a history of paroxysmal A. fib. Since patient also seems to have significant COPD, will switch to metoprolol succinate, a more beta 1 selective beta-wally. Bradycardia: Currently resolved. Currently in A. fib with rapid ventricular response. Beta-blockers being reinstituted. Most likely related to excess beta -wally intake but could well be related to sick sinus syndrome, possible vagal tone increase. Patient now off vasopressors. Stop scopolamine patch. Hypotension: This has resolved. Possibly related to excess antihypertensive and possible underlying hypovolemia. Currently blood pressure is noted to be high. May need to resume antihypertensive gradually. Review of records shows that patient has paroxysmal atrial fibrillation. Therefore agree with starting Eliquis and continuing it. Coronary artery disease: Currently stable. Recommend resuming beta-wally when heart rate improves, JUN inhibitor/ARB, statins and antiplatelet therapy. We will start Ranexa while in the hospital to see if it will maintain sinus rhythm. Congestive heart failure: Acute on chronic diastolic heart failure. Chest x- ray shows pulmonary venous congestion. Feel that this is congestive heart failure acute on chronic may have been brought on by aggressive fluid resuscitation for hypotension. Patient responded to IV Lasix yesterday. Chest x-ray today still shows CHF. BNP came back significantly high. Start p.o. Lasix 40 mg p.o. daily. Paroxysmal atrial fibrillation: Recommend rate control. Patient currently in atrial fibrillation. Agree with starting Eliquis therapy. - Time Time with patient: Greater than 35 minutes - CODE STATUS was discussed, patient remains full code. Surrogate decision-maker unchanged. Multiple medical problems were addressed. More than 50% of the time spent coordinating care, discussing management plans with involved caregivers. Management plans discussed with involved personnels. Medical decision making was of moderate to high complexity, patient's has multiple comorbidities. Medications reviewed and adjusted accordingly: Yes
[2017-04-09] MEDS: BUDESONIDE/FORMOTEROL 160-4.5 MCG 60 PUFF/6 GM MDI IH SCH ×2 (10:03→22:37)
[2017-04-09] MEDS: ATORVASTATIN CALCIUM 80 MG TABLET NG SCH (10:03)
[2017-04-09] MEDS: ASPIRIN 81 MG TABLET, CHEWABLE NG SCH (10:03)
[2017-04-09] MEDS: METOCLOPRAMIDE HCL INJ/PF 10 MG/2 ML SDV IV SCH ×3 (10:05→22:36)
[2017-04-09] MEDS: METOPROLOL SUCCINATE 25 MG TAB.SR.24H PO SCH ×2 (10:20→22:37)
[2017-04-09] MEDS: ISOSORBIDE MONONITRATE 60 MG TAB.ER.24H PO SCH (10:21)
[2017-04-09] MEDS: FUROSEMIDE 40 MG TABLET PO SCH (10:22)
[2017-04-09] MEDS: MAGNESIUM OXIDE 400 MG TABLET NG SCH (14:03)
[2017-04-09] MEDS ORDERED: CYANOCOBALAMIN (VITAMIN B-12) INJ 1000 MCG/1 ML VIAL IM ONE ×2 (14:50→16:30)
[2017-04-09] MEDS ORDERED: ALPRAZOLAM 0.5 MG TABLET NG PRN (14:54)
--- NOTE | 2017-04-09 15:17 | PDOC PROGRESS REPORT ---
Subjective Progress Note for:: 04/09/17 Subjective:: Patient reports she is feeling much better today. Patient has required 2 manual disimpaction's. She is still quite constipated. Patient denies chest pain, shortness of breath, abdominal pain, nausea, vomiting , fevers, chills, diarrhea, headache, new onset weakness. Physical Exam Vital Signs: Temp Pulse Resp BP Pulse Ox 98.8 F 99 18 134/82 H 94 04/09/17 12:34 04/09/17 14:05 04/09/17 14:05 04/09/17 12:34 04/09/17 14:05 Intake & Output 04/08/17 04/09/17 04/10/17 06:59 06:59 06:59 Intake Total 6662 878 600 Output Total 7278 5249 290 Balance 4042 -7207 310 Weight 89.2 kg 84.9 kg Exam: General: Awake alert and oriented x2, no acute respiratory distress HEENT: AT/NC, PERRL, EOMI, oropharynx is dry, pink, no scleral icterus, no conjunctival injection Neck: No JVD, trachea midline Chest: Prolonged expiratory phase, crackles bilateral bases, occasional wheeze bilaterally scattered CV: Regular rate and rhythm, normal S1 and S2, no rub or gallop; +2/6 SM LUSB Abdomen: Soft, nontender to palpation, nondistended, hypoactive bowel sounds; no rebound, rigidity, or guarding Extremities: No cyanosis; mild clubbing, trace edema Neuro: mild dysarthria, right sided facial droop, chronic left eye vision loss; awake alert and oriented x2 Psych: Normal mood and affect Skin: No rashes or worrisome lesions Results Laboratory Results: 04/09/17 05:13 04/09/17 05:13 04/09/17 04/09/17 04/09/17 05:13 05:13 05:13 WBC 12.9 H RBC 3.28 L Hgb 11.5 L Hct 33.0 L MCV 101 H MCH 35.0 H MCHC 34.8 RDW 14.2 H Plt Count 201 Seg Neutrophils % 92.0 H Lymphocytes % 5.1 L Monocytes % 2.7 L Eosinophils % 0.0 Basophils % 0.2 Absolute Neutrophils 11.9 H Absolute Lymphocytes 0.7 Absolute Monocytes 0.3 Absolute Eosinophils 0.0 Absolute Basophils 0.0 Retic Count (auto) 0.72 Absolute Retic 0.024 L Sodium 142.7 Potassium 3.4 L Chloride 103 Carbon Dioxide 27 Anion Gap 13 BUN 32 H Creatinine 1.13 Est GFR ( Amer) 57 L Est GFR (Non-Af Amer) 47 L Glucose 153 H Calcium 9.7 Phosphorus 3.0 Magnesium 2.1 Iron TIBC % Saturation Ferritin Vitamin B12 Folate 04/09/17 04/09/17 05:13 05:13 WBC RBC Hgb Hct MCV MCH MCHC RDW Plt Count Seg Neutrophils % Lymphocytes % Monocytes % Eosinophils % Basophils % Absolute Neutrophils Absolute Lymphocytes Absolute Monocytes Absolute Eosinophils Absolute Basophils Retic Count (auto) Absolute Retic Sodium Potassium Chloride Carbon Dioxide Anion Gap BUN Creatinine Est GFR ( Amer) Est GFR (Non-Af Amer) Glucose Calcium Phosphorus Magnesium 2.1 Iron 21.6 L TIBC 275 % Saturation 8 Ferritin 121.00 Vitamin B12 279.0 Folate 17.40 04/07/17 04/07/17 04/07/17 08:10 08:10 13:37 Creatine Kinase 28 L 22 L CK-MB (CK-2) 0.57 Troponin I < 0.012 NT-Pro-B Natriuret Pep 04/07/17 04/07/17 04/07/17 13:37 20:28 20:28 Creatine Kinase 36 CK-MB (CK-2) 0.61 0.33 Troponin I < 0.012 < 0.012 NT-Pro-B Natriuret Pep 04/08/17 04/08/17 04/08/17 07:37 07:37 07:37 Creatine Kinase 29 L CK-MB (CK-2) 0.79 Troponin I 0.014 NT-Pro-B Natriuret Pep [id number] H Impressions: Abdomen/Pelvis CT 04/07/17 00:00 IMPRESSION: 1. No acute or suspicious abdominopelvic abnormality. Lung base changes as above. Lung Scan-VQ NM 04/07/17 00:00 IMPRESSION: NORMAL PERFUSION LUNG SCAN. MILD HETEROGENOUS ACTIVITY SECONDARY TO UNDERLYING LUNG DISEASE. Head CT 04/07/17 02:02 IMPRESSION: No enhancing mass. Chronic changes of atrophy and microvascular ischemia. Low density area in the right occipital lobe, may correspond to the patient's prior infarct. Please correlate with clinical history/ exam. Comparison with prior studies would be helpful. Otherwise, MRI can help in further evaluation. Head MRI 04/08/17 00:00 IMPRESSION: ATROPHY AND CHRONIC MICRO-VASCULAR ISCHEMIC CHANGES. OLD INFARCT IN THE RIGHT OCCIPITAL LOBE. THERE ARE SMALL AREAS OF RESTRICTED PERFUSION AROUND THE PERIPHERY WHICH MAY INDICATE RECENT ACUTE INFARCTION SUPERIMPOSED ON OLD INFARCT. EVIDENCE OF ACUTE STROKE: NO. KUB X-Ray 04/08/17 00:00 IMPRESSION: 1. Nonobstructive bowel gas pattern. Fair amount of stool in the colon. 2. Artifact versus tiny bladder stone. Chest X-Ray 04/09/17 06:00 IMPRESSION: Emphysema. Airspace opacities at the bilateral lung bases, may represent atelectasis or superimposed pneumonia. Assessment & Plan - Diagnosis (1) Acute on chronic diastolic heart failure Is this a current diagnosis for this admission?: Yes Plan: Patient still volume overloaded. Continue Lasix No JUN/ARB secondary to chronic renal failure 04/08/17 10:00 Apixaban [Eliquis 5 mg Tablet] 5 mg NG BID Aspirin [Aspirin 81 mg Chewable Tablet] 81 mg NG DAILY Atorvastatin Calcium [Lipitor 80 mg Tablet] 80 mg NG DAILY 04/09/17 10:00 Furosemide [Lasix 40 mg Tablet] 40 mg PO DAILY Isosorbide Mononitrate [Imdur 60 mg Tablet.er] 60 mg PO DAILY Metoprolol Succinate [Toprol Xl 25 mg Tab.sr] 12.5 mg PO Q12 04/09/17 22:00 Ranolazine [Ranexa 500 mg Tab.sr] 500 mg PO Q12 (2) Atrial fibrillation with RVR Is this a current diagnosis for this admission?: Yes Plan: Patient has a history of paroxysmal atrial fibrillation. Patient is currently in atrial fibrillation. Cardiology has elected to transition her to metoprolol. She is normally on Coreg. Patient's Eliquis has been continued. VQ scan done was negative. (3) COPD with exacerbation Is this a current diagnosis for this admission?: Yes Plan: decrease Solu-Medrol. scheduled nebulized treatments (4) UTI (urinary tract infection) Qualifiers: Urinary tract infection type: acute cystitis Hematuria presence: without hematuria Qualified Code(s): N30.00 - Acute cystitis without hematuria Is this a current diagnosis for this admission?: Yes Plan: Patient is currently growing E. coli which is sensitive to doxycycline. We will transition her to this (5) Benzodiazepine dependence Is this a current diagnosis for this admission?: Yes Plan: Patient was found to have a prescription for Ativan 1 mg #30 filled on 2016 and Xanax 1 mg #60 filled on 04/02. Patient previously had a prescription for Xanax 1 mg #60 filled on 02/21 Xanax at decrease dose (6) Septic shock Is this a current diagnosis for this admission?: Yes Plan: Improved Patient currently off pressors, and with difficulty dealing with the amount of volume she required for resuscitation. (7) CVA, old, dysarthria Is this a current diagnosis for this admission?: Yes Plan: Patient presented with dysarthria and rhythmic movements. MRI obtained does not reveal any new cva (8) Coronary artery disease Qualifiers: Coronary Disease-Associated Artery/Lesion type: [place] artery Associated angina: angina presence unspecified Is this a current diagnosis for this admission?: Yes Plan: Unable to tolerate JUN/ARB secondary to renal failure 04/08/17 10:00 Aspirin [Aspirin 81 mg Chewable Tablet] 81 mg NG DAILY 04/09/17 10:00 Isosorbide Mononitrate [Imdur 60 mg Tablet.er] 60 mg PO DAILY Metoprolol Succinate [Toprol Xl 25 mg Tab.sr] 12.5 mg PO Q12 04/09/17 22:00 Ranolazine [Ranexa 500 mg Tab.sr] 500 mg PO Q12 (9) Acute on chronic respiratory failure with hypoxemia Is this a current diagnosis for this admission?: Yes Plan: Patient's daughter reports that home oxygen was restarted after her discharge from rehab. VQ scan is negative patient's creatinine would not tolerate a CTA. Continue to maintain oxygenation greater than 90%. (10) CKD (chronic kidney disease), stage III Is this a current diagnosis for this admission?: Yes Plan: Renally adjust all medications (11) Obesity with serious comorbidity Qualifiers: Obesity classification: adult class 1 (BMI 30 ? 34.9) Body mass index: BMI 31.0-31.9 Is this a current diagnosis for this admission?: Yes Plan: Consult dietary - Time Time Spent with patient: 35 or more minutes Medications reviewed and adjusted accordingly: Yes Anticipated discharge: SNF, Acute Rehab
[2017-04-09] MEDS: SENNOSIDES/DOCUSATE 8.6-50 MG 1 EACH TABLET NG SCH (22:36)
[2017-04-09] MEDS: RANOLAZINE 500 MG TAB.SR.12H PO SCH (22:36)
[2017-04-10] MEDS: IPRATROPIUM/ALBUTEROL 0.5-2.5 MG/3 ML AMPUL NEB SCH ×4 (02:08→20:15)
[2017-04-10] MEDS: GABAPENTIN 300 MG CAPSULE PO SCH ×3 (05:53→21:27)
[2017-04-10] MEDS: METHYLPREDNISOLONE INJ 125 MG/2 ML SDV IV SCH ×2 (05:53→14:10)
[2017-04-10] MEDS: LANSOPRAZOLE 30 MG TAB.RAP.DR NG SCH (05:54)
[2017-04-10 06:51] LABS: HEMATOCRIT 35.5 % (36.0-47.0); HGB HCT DIFFERENCE 0.5; MEAN CORPUSCULAR HEMOGLOBIN 34.8 pg (27.0-33.4); MEAN CORPUSCULAR VOLUME 102 fl (80-97); RED BLOOD COUNT 3.46 10^6/uL (3.72-5.28); RED CELL DISTRIBUTION WIDTH 14.6 % (11.5-14.0); WHITE BLOOD COUNT 15.1 10^3/uL (4.0-10.5)
[2017-04-10 06:55] LABS: ANION GAP 14 (5-19); BLOOD UREA NITROGEN 46 mg/dL (7-20); CALCIUM 9.8 mg/dL (8.4-10.2); CARBON DIOXIDE 26 mmol/L (22-30); CHLORIDE 103 mmol/L (98-107); CREATININE RESULT 1.18 mg/dL (0.52-1.25); GLUCOSE 171 mg/dL (75-110); MAGNESIUM 2.1 mg/dL (1.6-2.3); PHOSPHORUS 3.2 mg/dL (2.5-4.5); POTASSIUM 3.9 mmol/L (3.6-5.0); SODIUM 143.2 mmol/L (137-145)
[2017-04-10 07:07] LABS: BAND NEUTROPHILS % (MANUAL) 2 % (3-5); BASOPHILS % (MANUAL) 0 % (0-2); EOSINOPHILS % (MANUAL) 0 % (0-6); LYMPHOCYTES % (MANUAL) 5 % (13-45); TOTAL CELLS COUNTED 100
[2017-04-10 07:10] LABS: ANISOCYTOSIS SLIGHT; OVALOCYTES SLIGHT; POIKILOCYTOSIS SLIGHT; TOXIC GRANULATION 1+; TOXIC VACUOLATION PRESENT
[2017-04-10] MEDS: ACETYLCYSTEINE 20% SOLN 800 MG/4 ML VIAL.NEB NEB SCH ×2 (08:18→20:15)
[2017-04-10] MEDS: FUROSEMIDE 40 MG TABLET PO SCH (10:35)
[2017-04-10] MEDS: DOXYCYCLINE HYCLATE 100 MG TABLET PO SCH ×2 (10:36→21:27)
[2017-04-10] MEDS: METOPROLOL SUCCINATE 25 MG TAB.SR.24H PO SCH ×2 (10:37→21:27)
[2017-04-10] MEDS: RANOLAZINE 500 MG TAB.SR.12H PO SCH ×2 (10:37→21:27)
[2017-04-10] MEDS: AMLODIPINE BESYLATE 5 MG TABLET PO SCH (10:38)
[2017-04-10] MEDS: ASPIRIN 81 MG TABLET, CHEWABLE NG SCH (10:38)
[2017-04-10] MEDS: ATORVASTATIN CALCIUM 80 MG TABLET NG SCH (10:38)
[2017-04-10] MEDS: APIXABAN 5 MG TABLET NG SCH (10:39)
[2017-04-10] MEDS: ISOSORBIDE MONONITRATE 60 MG TAB.ER.24H PO SCH (10:39)
[2017-04-10] MEDS: METOCLOPRAMIDE HCL INJ/PF 10 MG/2 ML SDV IV SCH ×4 (10:41→21:27)
[2017-04-10] MEDS: BUDESONIDE/FORMOTEROL 160-4.5 MCG 60 PUFF/6 GM MDI IH SCH ×2 (10:55→21:27)
[2017-04-10] MEDS: TIOTROPIUM BROMIDE DPI 5 CAP/KIT (18 MCG/CAP) IH SCH (10:56)
[2017-04-10] MEDS: MAGNESIUM OXIDE 400 MG TABLET NG SCH (12:00)
--- NOTE | 2017-04-10 14:33 | PROGRESS NOTE E ---
Progress Note NAME: LISA FRANCISCO : 1945 AGE: 72Y DATE: 04/10/2017 ROOM: 330 SUBJECTIVE: The patient is doing much better. She denies any chest pain or discomfort. There is no PND, orthopnea or shortness of breath. Her blood pressure is now stable and the patient is off pressors. There is no dizziness, syncope or near syncope. The patient is back in atrial fibrillation. PHYSICAL EXAMINATION: VITAL SIGNS: The patient is afebrile with a temperature of 98.3 degrees Fahrenheit. Pulse is 104 beats per minute; bradycardia is resolved. Blood pressure is 137/80. Respirations are 18 per minute. O2 sats are 94% on 3 L nasal cannula. GENERAL: The patient is well built and well nourished, in no acute distress. HEENT: Head is atraumatic, normocephalic. Eyes - Pupils are equal, round, regular, and reactive to light and accommodation. Extraocular movements are normal. There is no conjunctival pallor. There is no scleral icterus. Of note, the patient is blind in the left eye. ENT is negative. NECK: Supple without lymphadenopathy. Trachea is centra. There is no cervical or axillary lymphadenopathy. Carotids are 2+. JVD is within normal limits. LUNGS: Show a few scattered rhonchi and diminished air entry, prolonged expiration. There is no chest wall tenderness. HEART: S1 and S2 is heard. S1 is of variable intensity. There is a 1/6 systolic ejection murmur in the aortic area and 1/6 pansystolic murmur in the mitral area. There are no rubs. There are no gallops. ABDOMEN: Soft, nontender. There is normal active bowel sounds. There is no guarding, there is no rebound, there is no rigidity, and there are no masses appreciated. EXTREMITIES: Pedal pulses are 1+. There is no calf tenderness. There is no clubbing or cyanosis. There is trace pedal edema. 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 PSYCHIATRIC: The patient's judgement and insight are intact. Her affect is normal. DIAGNOSTICS: Her sodium is 143.2, potassium 3.9, chloride 103, CO2 is 26, patient's BUN is 46, creatinine is 1.18. GFR is reduced at 45 mL, which is chronic kidney disease stage 3. The patient's white count is 13,100, hemoglobin is 12, hematocrit is 35.5, platelet count is 253,000. IMPRESSION: 1. ACUTE CVA WITH CORTICAL BLINDNESS. 2. BRADYCARDIA WITH 41-50 BEATS PER MINUTE; THIS HAS RESOLVED. This is *------*. Beta wally has been decreased to 12.5 mg p.o. every 12 hours. 3. *------* BETA WALLY. The heart rate is much improved and the beta wally dose has been decreased. 4. CORONARY ARTERY DISEASE. The patient is stable without any anginal symptoms. Continue aspirin. Continue atorvastatin. Continue Ranexa, metoprolol, and isosorbide. 5. ACUTE ON CHRONIC DIASTOLIC HEART FAILURE, AT PRESENT SEEMS TO HAVE RESOLVED. 6. COPD. Bradycardia resolved, currently in AFib with somewhat of a fast ventricular response. Beta wally has been reinstituted at a smaller dose. Patient off vasopressor. Patient also has symptoms consistent with COPD; continue anti-COPD medication. 7. PAROXYSMAL ATRIAL FIBRILLATION. At present the patient is back in atrial fibrillation. Note that the patient is on Eliquis 5 mg p.o. b.i.d. Continue Lasix. NOTE: Twenty-five minutes was spent on this patient with more than 50% of the time spent on direct patient care. Medical decision making is of moderate complexity. I will follow with you. DICTATING PHYSICIAN: SALINAS HAILE M.D. [id number] SARA#: [id number] ID: [id number] JOB#: [id number] ACCT: [id number] cc: >
--- NOTE | 2017-04-10 14:51 | PDOC PROGRESS REPORT ---
Subjective Progress Note for:: 04/10/17 Subjective:: Pt states that she feels much better. Pt states that she was taking to much of her blood pressure medication. Pt states that she as taking 2 tabs instead of 1 tab. Physical Thearpy was present at time of encounter. Nursing states that pt is still tachycardic. Physical Exam Vital Signs: Temp Pulse Resp BP Pulse Ox 98.3 F 90 16 137/80 H 93 04/10/17 07:14 04/10/17 14:08 04/10/17 14:08 04/10/17 07:14 04/10/17 14:08 Intake & Output 04/09/17 04/10/17 04/11/17 06:59 06:59 06:59 Intake Total 878 837 400 Output Total 5375 790 300 Balance -4497 47 100 Weight 84.9 kg 84.6 kg General appearance: PRESENT: no acute distress, well-developed, well-nourished Head exam: PRESENT: atraumatic, normocephalic Eye exam: PRESENT: conjunctiva pink, EOMI, PERRLA. ABSENT: scleral icterus Ear exam: PRESENT: normal external ear exam Mouth exam: PRESENT: moist, tongue midline Neck exam: ABSENT: carotid bruit, JVD, lymphadenopathy, thyromegaly Respiratory exam: PRESENT: clear to auscultation edwin. ABSENT: rales, rhonchi, wheezes Pulses: PRESENT: other - trace edema in the right upper ext. GI/Abdominal exam: PRESENT: normal bowel sounds, soft. ABSENT: distended, guarding, mass, organolmegaly, rebound, tenderness Rectal exam: PRESENT: deferred Extremities exam: PRESENT: calf tenderness Neurological exam: PRESENT: alert, awake, oriented to person, oriented to place , oriented to time, oriented to situation, CN II-XII grossly intact. ABSENT: motor sensory deficit Psychiatric exam: PRESENT: appropriate affect, normal mood. ABSENT: homicidal ideation, suicidal ideation Skin exam: PRESENT: dry, warm Results Laboratory Results: 04/10/17 06:09 04/10/17 06:09 04/10/17 04/10/17 06:09 06:09 WBC 15.1 H RBC 3.46 L Hgb 12.0 Hct 35.5 L MCV 102 H MCH 34.8 H MCHC 34.0 RDW 14.6 H Plt Count 253 Seg Neutrophils % Not Reportable Lymphocytes % Not Reportable Monocytes % Not Reportable Eosinophils % Not Reportable Basophils % Not Reportable Absolute Neutrophils Not Reportable Absolute Lymphocytes Not Reportable Absolute Monocytes Not Reportable Absolute Eosinophils Not Reportable Absolute Basophils Not Reportable Sodium 143.2 Potassium 3.9 Chloride 103 Carbon Dioxide 26 Anion Gap 14 BUN 46 H Creatinine 1.18 Est GFR ( Amer) 54 L Est GFR (Non-Af Amer) 45 L Glucose 171 H Calcium 9.8 Phosphorus 3.2 Magnesium 2.1 04/07/17 04/07/17 04/07/17 08:10 08:10 13:37 Creatine Kinase 28 L 22 L CK-MB (CK-2) 0.57 Troponin I < 0.012 NT-Pro-B Natriuret Pep 04/07/17 04/07/17 04/07/17 13:37 20:28 20:28 Creatine Kinase 36 CK-MB (CK-2) 0.61 0.33 Troponin I < 0.012 < 0.012 NT-Pro-B Natriuret Pep 04/08/17 04/08/17 04/08/17 07:37 07:37 07:37 Creatine Kinase 29 L CK-MB (CK-2) 0.79 Troponin I 0.014 NT-Pro-B Natriuret Pep [id number] H Impressions: Abdomen/Pelvis CT 04/07/17 00:00 IMPRESSION: 1. No acute or suspicious abdominopelvic abnormality. Lung base changes as above. Lung Scan-VQ NM 04/07/17 00:00 IMPRESSION: NORMAL PERFUSION LUNG SCAN. MILD HETEROGENOUS ACTIVITY SECONDARY TO UNDERLYING LUNG DISEASE. Head CT 04/07/17 02:02 IMPRESSION: No enhancing mass. Chronic changes of atrophy and microvascular ischemia. Low density area in the right occipital lobe, may correspond to the patient's prior infarct. Please correlate with clinical history/ exam. Comparison with prior studies would be helpful. Otherwise, MRI can help in further evaluation. Head MRI 04/08/17 00:00 IMPRESSION: ATROPHY AND CHRONIC MICRO-VASCULAR ISCHEMIC CHANGES. OLD INFARCT IN THE RIGHT OCCIPITAL LOBE. THERE ARE SMALL AREAS OF RESTRICTED PERFUSION AROUND THE PERIPHERY WHICH MAY INDICATE RECENT ACUTE INFARCTION SUPERIMPOSED ON OLD INFARCT. EVIDENCE OF ACUTE STROKE: NO. KUB X-Ray 04/08/17 00:00 IMPRESSION: 1. Nonobstructive bowel gas pattern. Fair amount of stool in the colon. 2. Artifact versus tiny bladder stone. Chest X-Ray 04/09/17 06:00 IMPRESSION: Emphysema. Airspace opacities at the bilateral lung bases, may represent atelectasis or superimposed pneumonia. Assessment & Plan - Diagnosis (1) Bradycardia with 41-50 beats per minute Is this a current diagnosis for this admission?: Yes Plan: Secondary to Toxic Effect of Beta Saima: Resolved. Patient reports that she was missed dosing her metoprolol. Patient's metoprolol was discontinued at time of admission however has been restarted. Patient heart rate under better control (2) Impaction of colon Is this a current diagnosis for this admission?: Yes Plan: We will write for soapsuds enema today. (3) CVA, old, dysarthria Is this a current diagnosis for this admission?: Yes Plan: Stable. (4) UTI (urinary tract infection) Qualifiers: Urinary tract infection type: acute cystitis Hematuria presence: without hematuria Qualified Code(s): N30.00 - Acute cystitis without hematuria Is this a current diagnosis for this admission?: Yes Plan: Secondary to E.Coli: Will continue Doxycycline. (5) Acute CVA (cerebrovascular accident) Is this a current diagnosis for this admission?: Yes Plan: Ruled out. No evidence of acute CVA. (6) COPD with exacerbation Is this a current diagnosis for this admission?: Yes Plan: Will decrease steroids to 40mg IV Q12h. (7) Septic shock Is this a current diagnosis for this admission?: Yes Plan: Secondary to E. Coli Acute Cystitis: Resolved. Pt will continue antibiotics. (8) Atrial fibrillation with RVR Is this a current diagnosis for this admission?: Yes Plan: Pt restarted to Metoprolol. Pt heart rate controlled. (9) CKD (chronic kidney disease), stage III Is this a current diagnosis for this admission?: Yes Plan: Stable. (10) DVT prophylaxis Is this a current diagnosis for this admission?: Yes Plan: Eliquis - Time Time Spent with patient: 15-24 minutes
[2017-04-10] MEDS ORDERED: ALPRAZOLAM 0.5 MG TABLET NG PRN (15:30)
[2017-04-10] MEDS ORDERED: ALPRAZOLAM 0.5 MG TABLET PO PRN (16:00)
[2017-04-10] MEDS: LANSOPRAZOLE 30 MG TAB.RAP.DR PO SCH (17:05)
[2017-04-10] MEDS: APIXABAN 5 MG TABLET PO SCH (17:05)
[2017-04-10] MEDS: SENNOSIDES/DOCUSATE 8.6-50 MG 1 EACH TABLET PO SCH (21:27)
[2017-04-10] MEDS ORDERED: METHYLPREDNISOLONE INJ 40 MG/1 ML SDV IV SCH (22:00)
[2017-04-10] MEDS ORDERED: METHYLPREDNISOLONE INJ 125 MG/2 ML SDV IV SCH (22:00)
[2017-04-11] MEDS: IPRATROPIUM/ALBUTEROL 0.5-2.5 MG/3 ML AMPUL NEB SCH ×4 (01:50→20:49)
[2017-04-11] MEDS: GABAPENTIN 300 MG CAPSULE PO SCH ×3 (05:56→21:23)
[2017-04-11] MEDS: LANSOPRAZOLE 30 MG TAB.RAP.DR PO SCH ×2 (05:56→17:09)
[2017-04-11 06:05] LABS: ABSOLUTE LYMPHOCYTES (AUTO) 0.8 10^3/uL (0.5-4.7); ABSOLUTE MONOCYTES (AUTO) 0.5 10^3/uL (0.1-1.4); ABSOLUTE NEUT (AUTO) 8.5 10^3/uL (1.7-8.2); BASOPHILS % (AUTO) 0.2 % (0-2); HEMATOCRIT 35.5 % (36.0-47.0); HGB HCT DIFFERENCE 0.5; LYMPHOCYTES % (AUTO) 7.8 % (13-45); MEAN CORPUSCULAR HEMOGLOBIN 34.8 pg (27.0-33.4); MEAN CORPUSCULAR HGB CONC 33.9 g/dL (32.0-36.0); MEAN CORPUSCULAR VOLUME 103 fl (80-97); MONOCYTES % (AUTO) 5.3 % (3-13); RED BLOOD COUNT 3.46 10^6/uL (3.72-5.28); RED CELL DISTRIBUTION WIDTH 14.3 % (11.5-14.0); SEGMENTED NEUTROPHILS % (AUTO) 86.7 % (42-78); WHITE BLOOD COUNT 9.8 10^3/uL (4.0-10.5)
[2017-04-11 06:36] LABS: ANION GAP 13 (5-19); BLOOD UREA NITROGEN 48 mg/dL (7-20); CALCIUM 9.6 mg/dL (8.4-10.2); CARBON DIOXIDE 28 mmol/L (22-30); CHLORIDE 103 mmol/L (98-107); CREATININE RESULT 1.09 mg/dL (0.52-1.25); GLUCOSE 165 mg/dL (75-110); MAGNESIUM 2.1 mg/dL (1.6-2.3); POTASSIUM 3.4 mmol/L (3.6-5.0); SODIUM 143.8 mmol/L (137-145)
[2017-04-11] MEDS ORDERED: POTASSIUM CHLORIDE 10 MEQ TABLET.SA PO ONE (07:33)
[2017-04-11] MEDS: METOCLOPRAMIDE HCL INJ/PF 10 MG/2 ML SDV IV SCH (08:05)
[2017-04-11] MEDS: ACETYLCYSTEINE 20% SOLN 800 MG/4 ML VIAL.NEB NEB SCH ×2 (08:07→20:50)
--- NOTE | 2017-04-11 09:42 | PDOC PROGRESS REPORT ---
Subjective Progress Note for:: 04/11/17 Subjective:: Pt states that she is feeling better. Nursing states that daughter is requesting for Rehab placement. Pt states that she is agreeable with rehab if approved. Physical Exam Vital Signs: Temp Pulse Resp BP Pulse Ox 98.1 F 73 16 167/68 H 96 04/11/17 07:51 04/11/17 08:06 04/11/17 08:06 04/11/17 07:51 04/11/17 08:06 Intake & Output 04/10/17 04/11/17 04/12/17 06:59 06:59 06:59 Intake Total 837 795 Output Total 790 500 Balance 47 295 Weight 84.6 kg 83.8 kg General appearance: PRESENT: no acute distress, well-developed, well-nourished, other - Pt was sitting on side of bed. Head exam: PRESENT: atraumatic, normocephalic Eye exam: PRESENT: conjunctiva pink, EOMI. ABSENT: scleral icterus Mouth exam: PRESENT: moist, tongue midline Neck exam: ABSENT: carotid bruit, JVD, lymphadenopathy, thyromegaly Respiratory exam: PRESENT: clear to auscultation edwin. ABSENT: rales, rhonchi, wheezes Cardiovascular exam: PRESENT: RRR. ABSENT: diastolic murmur, rubs, systolic murmur Pulses: PRESENT: normal dorsalis pedis pul Vascular exam: PRESENT: normal capillary refill GI/Abdominal exam: PRESENT: normal bowel sounds, soft. ABSENT: distended, guarding, mass, organolmegaly, rebound, tenderness Rectal exam: PRESENT: deferred Extremities exam: PRESENT: full ROM. ABSENT: calf tenderness, clubbing, pedal edema Neurological exam: PRESENT: alert, awake, oriented to person, oriented to place , oriented to time, oriented to situation, CN II-XII grossly intact. ABSENT: motor sensory deficit Psychiatric exam: PRESENT: appropriate affect, normal mood. ABSENT: homicidal ideation, suicidal ideation Skin exam: PRESENT: dry, intact, warm. ABSENT: cyanosis, rash Results Laboratory Results: 04/11/17 05:43 04/11/17 05:43 04/11/17 04/11/17 05:43 05:43 WBC 9.8 RBC 3.46 L Hgb 12.0 Hct 35.5 L MCV 103 H MCH 34.8 H MCHC 33.9 RDW 14.3 H Plt Count 240 Seg Neutrophils % 86.7 H Lymphocytes % 7.8 L Monocytes % 5.3 Eosinophils % 0.0 Basophils % 0.2 Absolute Neutrophils 8.5 H Absolute Lymphocytes 0.8 Absolute Monocytes 0.5 Absolute Eosinophils 0.0 Absolute Basophils 0.0 Sodium 143.8 Potassium 3.4 L Chloride 103 Carbon Dioxide 28 Anion Gap 13 BUN 48 H Creatinine 1.09 Est GFR ( Amer) 59 L Est GFR (Non-Af Amer) 49 L Glucose 165 H Calcium 9.6 Magnesium 2.1 04/07/17 04/07/17 04/07/17 08:10 08:10 13:37 Creatine Kinase 28 L 22 L CK-MB (CK-2) 0.57 Troponin I < 0.012 NT-Pro-B Natriuret Pep 04/07/17 04/07/17 04/07/17 13:37 20:28 20:28 Creatine Kinase 36 CK-MB (CK-2) 0.61 0.33 Troponin I < 0.012 < 0.012 NT-Pro-B Natriuret Pep 04/08/17 04/08/17 04/08/17 07:37 07:37 07:37 Creatine Kinase 29 L CK-MB (CK-2) 0.79 Troponin I 0.014 NT-Pro-B Natriuret Pep [id number] H Impressions: Abdomen/Pelvis CT 04/07/17 00:00 IMPRESSION: 1. No acute or suspicious abdominopelvic abnormality. Lung base changes as above. Lung Scan-VQ NM 04/07/17 00:00 IMPRESSION: NORMAL PERFUSION LUNG SCAN. MILD HETEROGENOUS ACTIVITY SECONDARY TO UNDERLYING LUNG DISEASE. Head CT 04/07/17 02:02 IMPRESSION: No enhancing mass. Chronic changes of atrophy and microvascular ischemia. Low density area in the right occipital lobe, may correspond to the patient's prior infarct. Please correlate with clinical history/ exam. Comparison with prior studies would be helpful. Otherwise, MRI can help in further evaluation. Head MRI 04/08/17 00:00 IMPRESSION: ATROPHY AND CHRONIC MICRO-VASCULAR ISCHEMIC CHANGES. OLD INFARCT IN THE RIGHT OCCIPITAL LOBE. THERE ARE SMALL AREAS OF RESTRICTED PERFUSION AROUND THE PERIPHERY WHICH MAY INDICATE RECENT ACUTE INFARCTION SUPERIMPOSED ON OLD INFARCT. EVIDENCE OF ACUTE STROKE: NO. KUB X-Ray 04/08/17 00:00 IMPRESSION: 1. Nonobstructive bowel gas pattern. Fair amount of stool in the colon. 2. Artifact versus tiny bladder stone. Chest X-Ray 04/09/17 06:00 IMPRESSION: Emphysema. Airspace opacities at the bilateral lung bases, may represent atelectasis or superimposed pneumonia. Assessment & Plan - Diagnosis (1) Bradycardia with 41-50 beats per minute Is this a current diagnosis for this admission?: Yes Plan: Secondary to Toxic Effect of Beta Saima: Resolved. Patient reports that she was missed dosing her metoprolol. Patient's metoprolol was discontinued at time of admission however has been restarted. Patient heart rate under better control (2) Hypokalemia Is this a current diagnosis for this admission?: Yes Plan: Will give Potassium 40 mEq PO X 1. Will check BMP in a.m. (3) Hypertension Qualifiers: Hypertension type: essential hypertension Qualified Code(s): I10 - Essential (primary) hypertension Is this a current diagnosis for this admission?: Yes Plan: Will increase Norvasc to 10 mg PO Daily. (4) Impaction of colon Is this a current diagnosis for this admission?: Yes Plan: Pt having regular BM currently. Will check KUB (5) CVA, old, dysarthria Is this a current diagnosis for this admission?: Yes Plan: Stable. (6) UTI (urinary tract infection) Qualifiers: Urinary tract infection type: acute cystitis Hematuria presence: without hematuria Qualified Code(s): N30.00 - Acute cystitis without hematuria Is this a current diagnosis for this admission?: Yes Plan: Secondary to E.Coli: Will continue Doxycycline. (7) Acute CVA (cerebrovascular accident) Is this a current diagnosis for this admission?: Yes Plan: Ruled out. No evidence of acute CVA. (8) COPD with exacerbation Is this a current diagnosis for this admission?: Yes Plan: Will discontinue steroids today. (9) Septic shock Is this a current diagnosis for this admission?: Yes Plan: Secondary to E. Coli Acute Cystitis: Resolved. Pt will continue antibiotics. (10) Atrial fibrillation with RVR Is this a current diagnosis for this admission?: Yes Plan: Pt restarted to Metoprolol. Pt heart rate controlled. (11) CKD (chronic kidney disease), stage III Is this a current diagnosis for this admission?: Yes Plan: Stable. (12) DVT prophylaxis Is this a current diagnosis for this admission?: Yes Plan: Edwin
[2017-04-11] MEDS: TIOTROPIUM BROMIDE DPI 5 CAP/KIT (18 MCG/CAP) IH SCH (09:43)
[2017-04-11] MEDS: BUDESONIDE/FORMOTEROL 160-4.5 MCG 60 PUFF/6 GM MDI IH SCH ×2 (09:43→21:20)
[2017-04-11] MEDS: DOXYCYCLINE HYCLATE 100 MG TABLET PO SCH ×2 (09:44→21:23)
[2017-04-11] MEDS: METOPROLOL SUCCINATE 25 MG TAB.SR.24H PO SCH ×2 (09:45→21:21)
[2017-04-11] MEDS: ISOSORBIDE MONONITRATE 60 MG TAB.ER.24H PO SCH (09:47)
[2017-04-11] MEDS: RANOLAZINE 500 MG TAB.SR.12H PO SCH ×2 (09:47→21:22)
[2017-04-11] MEDS: APIXABAN 5 MG TABLET PO SCH ×2 (09:47→17:12)
[2017-04-11] MEDS: FUROSEMIDE 40 MG TABLET PO SCH (09:50)
[2017-04-11] MEDS ORDERED: ATORVASTATIN CALCIUM 80 MG TABLET PO SCH (10:00)
[2017-04-11] MEDS ORDERED: ASPIRIN 81 MG TABLET, CHEWABLE PO SCH (10:00)
[2017-04-11] MEDS: AMLODIPINE BESYLATE 5 MG TABLET PO SCH (10:20)
[2017-04-11] MEDS: MAGNESIUM OXIDE 400 MG TABLET PO SCH (11:15)
[2017-04-11] MEDS: METOCLOPRAMIDE HCL 10 MG TABLET PO SCH ×3 (11:15→21:22)
--- NOTE | 2017-04-11 11:17 | RADIOLOGY REPORT (SQ) ---
EXAM DESCRIPTION: KUB/ABDOMEN (SINGLE VIEW) COMPLETED DATE/TIME: 04/11/2017 10:10 am REASON FOR STUDY: Stool Stem COMPARISON: CT abdomen pelvis 04/07/2017 KUB 04/08/2017 NUMBER OF VIEWS: One view. TECHNIQUE: Supine radiographic image of the abdomen acquired. LIMITATIONS: None. FINDINGS: BOWEL GAS PATTERN: Few air-fluid levels in nondistended small bowel loops in the mid abdom en. Large amount of stool in the ascending colon, moderate stool in the descending colon. CALCIFICATIONS: No suspicious calcifications. SOFT TISSUES: No gross mass or suggestion of organomegaly. HARDWARE: Clips right upper quadrant post cholecystectomy BONES: No acute fracture. No worrisome bone lesions. OTHER: No other significant finding. IMPRESSION: Nonspecific bowel gas pattern with large amount of stool in the ascending colon TECHNICAL DOCUMENTATION: JOB ID: [id number] [employer]- All Rights Reserved
--- NOTE | 2017-04-11 20:13 | PDOC PROGRESS REPORT ---
Subjective Progress Note for:: 04/11/17 Subjective:: Patient seems to be doing better with gradual improvement. Patient now off vasopressors. Patient feels much better. Patient denied any sustained palpitations, dizziness, syncope, near syncope. Patient denying any fever chills. Patient denying any other significant discomfort. Patient has been noted to be intermittently bradycardic. Review of systems: Rest review of systems negative. Medications: Medications have been reviewed. Physical Exam Vital Signs: Temp Pulse Resp BP Pulse Ox 97.9 F 69 16 129/56 H 92 04/11/17 15:27 04/11/17 15:27 04/11/17 15:27 04/11/17 15:27 04/11/17 15:27 Intake & Output 04/10/17 04/11/17 04/12/17 06:59 06:59 06:59 Intake Total 095 736 7172 Output Total 790 500 Balance 47 295 1594 Weight 84.6 kg 83.8 kg Exam: GENERAL: well-nourished and in no acute distress. Alert and oriented x3 HEAD: Atraumatic, normocephalic. EYES: Pupils equal round and reactive to light, extraocular movements intact, sclera anicteric, conjunctiva are normal. Cortical blindness left eye. ENT: TMs normal, nares patent, oropharynx clear without exudates. Moist mucous membranes. No oral ulcerations or bleeding gums noted NECK: supple without lymphadenopathy. Trachea is central. No cervical or axillary lymphadenopathy noted. Carotids are 2+, JVD WNL LUNGS: Respiration seems nonlabored, no significant accessory muscle action noted. Bibasilar fine crackles noted. No significant dullness noted. CHEST: Palpation of the chest wall shows no significant chest wall tenderness. No other significant abnormalities noted. HEART: [place] [employer], No PSH, 1/6 MARTIN aortic area, 1/6 herrera systolic murmur mitral area, no rubs, no gallops. ABDOMEN: Soft, no significant tenderness appreciated, normoactive bowel sounds. No guarding, no rebound. No rigidity noted . No masses appreciated. EXTREMITIES: Pedal pulses are 1-2+, no calf tenderness noted. No clubbing or cyanosis.trace to 1+ pedal edema noted NEUROLOGICAL: Focused neurological exam showed no significant neurologic deficit except for cortical blindness left eye and minimal left-sided weakness. PSYCH: Normal mood, normal affect. Judgment and insight within normal limits. SKIN: No significant ecchymosis, rash, ulcerations or signs of pruritus noted. MUSCULOSKELETAL EXAM: No significant joint swelling noted. Results Laboratory Results: 04/11/17 05:43 04/11/17 05:43 04/09/17 04/11/17 04/11/17 05:13 05:43 05:43 WBC 9.8 RBC 3.46 L Hgb 12.0 Hct 35.5 L MCV 103 H MCH 34.8 H MCHC 33.9 RDW 14.3 H Plt Count 240 Seg Neutrophils % 86.7 H Lymphocytes % 7.8 L Monocytes % 5.3 Eosinophils % 0.0 Basophils % 0.2 Absolute Neutrophils 8.5 H Absolute Lymphocytes 0.8 Absolute Monocytes 0.5 Absolute Eosinophils 0.0 Absolute Basophils 0.0 Sodium 143.8 Potassium 3.4 L Chloride 103 Carbon Dioxide 28 Anion Gap 13 BUN 48 H Creatinine 1.09 Est GFR ( Amer) 59 L Est GFR (Non-Af Amer) 49 L Glucose 165 H Calcium 9.6 Magnesium 2.1 Transferrin 203 04/07/17 04/07/17 04/07/17 08:10 08:10 13:37 Creatine Kinase 28 L 22 L CK-MB (CK-2) 0.57 Troponin I < 0.012 NT-Pro-B Natriuret Pep 04/07/17 04/07/17 04/07/17 13:37 20:28 20:28 Creatine Kinase 36 CK-MB (CK-2) 0.61 0.33 Troponin I < 0.012 < 0.012 NT-Pro-B Natriuret Pep 04/08/17 04/08/17 04/08/17 07:37 07:37 07:37 Creatine Kinase 29 L CK-MB (CK-2) 0.79 Troponin I 0.014 NT-Pro-B Natriuret Pep [id number] H Impressions: Abdomen/Pelvis CT 04/07/17 00:00 IMPRESSION: 1. No acute or suspicious abdominopelvic abnormality. Lung base changes as above. Lung Scan-VQ [place] 04/07/17 00:00 IMPRESSION: NORMAL PERFUSION LUNG SCAN. MILD HETEROGENOUS ACTIVITY SECONDARY TO UNDERLYING LUNG DISEASE. Head CT 04/07/17 02:02 IMPRESSION: No enhancing mass. Chronic changes of atrophy and microvascular ischemia. Low density area in the right occipital lobe, may correspond to the patient's prior infarct. Please correlate with clinical history/ exam. Comparison with prior studies would be helpful. Otherwise, MRI can help in further evaluation. Head MRI 04/08/17 00:00 IMPRESSION: ATROPHY AND CHRONIC MICRO-VASCULAR ISCHEMIC CHANGES. OLD INFARCT IN THE RIGHT OCCIPITAL LOBE. THERE ARE SMALL AREAS OF RESTRICTED PERFUSION AROUND THE PERIPHERY WHICH MAY INDICATE RECENT ACUTE INFARCTION SUPERIMPOSED ON OLD INFARCT. EVIDENCE OF ACUTE STROKE: NO. Chest X-Ray 04/09/17 06:00 IMPRESSION: Emphysema. Airspace opacities at the bilateral lung bases, may represent atelectasis or superimposed pneumonia. KUB X-Ray 04/11/17 00:00 IMPRESSION: Nonspecific bowel gas pattern with large amount of stool in the ascending colon Assessment & Plan - Diagnosis (1) Bradycardia with 41-50 beats per minute Is this a current diagnosis for this admission?: Yes (2) Hypotension Is this a current diagnosis for this admission?: Yes (3) Toxic effect of beta wally Is this a current diagnosis for this admission?: Yes (4) Coronary artery disease Qualifiers: Coronary Disease-Associated Artery/Lesion type: [place] artery Associated angina: angina presence unspecified Is this a current diagnosis for this admission?: Yes (5) Acute on chronic diastolic heart failure Is this a current diagnosis for this admission?: Yes (6) PAF (paroxysmal atrial fibrillation) Is this a current diagnosis for this admission?: Yes - Notes Notes: Bradycardia: Intermittently present but not severe. Beta-blockers is being adjusted. Most likely related to excess beta-wally intake but could well be related to sick sinus syndrome, possible vagal tone increase. Patient now off vasopressors. Stop scopolamine patch. Hypotension: This has resolved. Possibly related to excess antihypertensive and possible underlying hypovolemia. Currently blood pressure is noted to be high. May need to resume antihypertensive gradually. Antihypertensive regimen is being gradually adjusted. Coronary artery disease: Currently stable. Recommend resuming beta-wally when heart rate improves, UJN inhibitor/ARB, statins and antiplatelet therapy. We will start Ranexa while in the hospital to see if it will maintain sinus rhythm. Congestive heart failure: Acute on chronic diastolic heart failure. Continue p.o. Lasix 40 mg p.o. daily. Paroxysmal atrial fibrillation: Recommend rate control. Patient currently in atrial fibrillation. Continue Eliquis therapy. - Time Time with patient: 15-25 minutes - CODE STATUS : was discussed, patient remains DO NOT RESUSCITATE. Surrogate decision-maker unchanged. Multiple medical problems were addressed. More than 50% of the time spent coordinating care, discussing management plans with involved caregivers. Management plans discussed with involved personnels. Medical decision making was of moderate to high complexity, patient's has multiple comorbidities. Medications reviewed and adjusted accordingly: Yes
[2017-04-11] MEDS: SENNOSIDES/DOCUSATE 8.6-50 MG 1 EACH TABLET PO SCH (21:22)
[2017-04-12] MEDS: IPRATROPIUM/ALBUTEROL 0.5-2.5 MG/3 ML AMPUL NEB SCH ×4 (01:54→19:38)
[2017-04-12] MEDS: GABAPENTIN 300 MG CAPSULE PO SCH ×3 (05:48→22:04)
[2017-04-12] MEDS: LANSOPRAZOLE 30 MG TAB.RAP.DR PO SCH ×2 (05:49→16:55)
[2017-04-12] MEDS: ACETYLCYSTEINE 20% SOLN 800 MG/4 ML VIAL.NEB NEB SCH (07:57)
[2017-04-12 08:16] LABS: ANION GAP 10 (5-19); BLOOD UREA NITROGEN 35 mg/dL (7-20); CALCIUM 9.5 mg/dL (8.4-10.2); CARBON DIOXIDE 29 mmol/L (22-30); CHLORIDE 103 mmol/L (98-107); CREATININE RESULT 1.03 mg/dL (0.52-1.25); GLUCOSE 88 mg/dL (75-110); POTASSIUM 3.9 mmol/L (3.6-5.0); SODIUM 142.1 mmol/L (137-145)
[2017-04-12] MEDS: TIOTROPIUM BROMIDE DPI 5 CAP/KIT (18 MCG/CAP) IH SCH (09:37)
[2017-04-12] MEDS: BUDESONIDE/FORMOTEROL 160-4.5 MCG 60 PUFF/6 GM MDI IH SCH ×2 (09:37→22:11)
[2017-04-12] MEDS: ISOSORBIDE MONONITRATE 60 MG TAB.ER.24H PO SCH (09:38)
[2017-04-12] MEDS: AMLODIPINE BESYLATE 5 MG TABLET PO SCH (09:39)
[2017-04-12] MEDS: ASPIRIN 81 MG TABLET, CHEWABLE PO SCH (09:39)
[2017-04-12] MEDS: FUROSEMIDE 40 MG TABLET PO SCH (09:40)
[2017-04-12] MEDS: METOCLOPRAMIDE HCL 10 MG TABLET PO SCH ×4 (09:40→22:05)
[2017-04-12] MEDS: METOPROLOL SUCCINATE 25 MG TAB.SR.24H PO SCH ×2 (09:41→22:05)
[2017-04-12] MEDS: RANOLAZINE 500 MG TAB.SR.12H PO SCH ×2 (09:42→22:05)
[2017-04-12] MEDS: DOXYCYCLINE HYCLATE 100 MG TABLET PO SCH ×2 (09:42→22:05)
[2017-04-12] MEDS: APIXABAN 5 MG TABLET PO SCH ×2 (09:42→18:59)
[2017-04-12] MEDS: MAGNESIUM OXIDE 400 MG TABLET PO SCH (11:40)
--- NOTE | 2017-04-12 14:33 | PDOC PROGRESS REPORT ---
Subjective Progress Note for:: 04/12/17 Subjective:: Pt states that she is doing well. Nursing states that they are still trying to find Rehab. Physical Exam Vital Signs: Temp Pulse Resp BP Pulse Ox 97.5 F 80 16 124/70 93 04/12/17 11:11 04/12/17 13:10 04/12/17 13:10 04/12/17 11:11 04/12/17 11:11 Intake & Output 04/11/17 04/12/17 04/13/17 06:59 06:59 06:59 Intake Total 795 1894 356 Output Total 500 0 Balance 295 1894 356 Weight 83.8 kg 82.3 kg General appearance: PRESENT: no acute distress, well-developed, well-nourished Head exam: PRESENT: atraumatic, normocephalic Eye exam: PRESENT: conjunctiva pink, EOMI, PERRLA. ABSENT: scleral icterus Ear exam: PRESENT: normal external ear exam Mouth exam: PRESENT: moist, tongue midline Neck exam: ABSENT: carotid bruit, JVD, lymphadenopathy, thyromegaly Respiratory exam: PRESENT: clear to auscultation edwin. ABSENT: rales, rhonchi, wheezes Cardiovascular exam: PRESENT: RRR. ABSENT: diastolic murmur, rubs, systolic murmur Pulses: PRESENT: normal dorsalis pedis pul Vascular exam: PRESENT: normal capillary refill GI/Abdominal exam: PRESENT: normal bowel sounds, soft. ABSENT: distended, guarding, mass, organolmegaly, rebound, tenderness Rectal exam: PRESENT: deferred Extremities exam: PRESENT: calf tenderness Neurological exam: PRESENT: alert, awake, oriented to person, oriented to place , oriented to time, oriented to situation, CN II-XII grossly intact. ABSENT: motor sensory deficit Psychiatric exam: PRESENT: appropriate affect, normal mood. ABSENT: homicidal ideation, suicidal ideation Skin exam: PRESENT: dry, intact, warm. ABSENT: cyanosis, rash Results Laboratory Results: 04/11/17 05:43 04/12/17 07:46 04/12/17 04/12/17 05:43 07:46 Sodium Cancelled 142.1 Potassium Cancelled 3.9 Chloride Cancelled 103 Carbon Dioxide Cancelled 29 Anion Gap Cancelled 10 BUN Cancelled 35 H Creatinine Cancelled 1.03 Est GFR ( Amer) Cancelled > 60 Est GFR (Non-Af Amer) Cancelled 52 L Glucose Cancelled 88 Calcium Cancelled 9.5 04/07/17 09:50 Blood Blood Culture - Final NO GROWTH IN 5 DAYS 04/07/17 08:55 Blood Blood Culture - Final NO GROWTH IN 5 DAYS 04/07/17 04/07/17 04/07/17 08:10 08:10 13:37 Creatine Kinase 28 L 22 L CK-MB (CK-2) 0.57 Troponin I < 0.012 NT-Pro-B Natriuret Pep 04/07/17 04/07/17 04/07/17 13:37 20:28 20:28 Creatine Kinase 36 CK-MB (CK-2) 0.61 0.33 Troponin I < 0.012 < 0.012 NT-Pro-B Natriuret Pep 04/08/17 04/08/17 04/08/17 07:37 07:37 07:37 Creatine Kinase 29 L CK-MB (CK-2) 0.79 Troponin I 0.014 NT-Pro-B Natriuret Pep 17880 H Impressions: Abdomen/Pelvis CT 04/07/17 00:00 IMPRESSION: 1. No acute or suspicious abdominopelvic abnormality. Lung base changes as above. Lung Scan-VQ NM 04/07/17 00:00 IMPRESSION: NORMAL PERFUSION LUNG SCAN. MILD HETEROGENOUS ACTIVITY SECONDARY TO UNDERLYING LUNG DISEASE. Head CT 04/07/17 02:02 IMPRESSION: No enhancing mass. Chronic changes of atrophy and microvascular ischemia. Low density area in the right occipital lobe, may correspond to the patient's prior infarct. Please correlate with clinical history/ exam. Comparison with prior studies would be helpful. Otherwise, MRI can help in further evaluation. Head MRI 04/08/17 00:00 IMPRESSION: ATROPHY AND CHRONIC MICRO-VASCULAR ISCHEMIC CHANGES. OLD INFARCT IN THE RIGHT OCCIPITAL LOBE. THERE ARE SMALL AREAS OF RESTRICTED PERFUSION AROUND THE PERIPHERY WHICH MAY INDICATE RECENT ACUTE INFARCTION SUPERIMPOSED ON OLD INFARCT. EVIDENCE OF ACUTE STROKE: NO. Chest X-Ray 04/09/17 06:00 IMPRESSION: Emphysema. Airspace opacities at the bilateral lung bases, may represent atelectasis or superimposed pneumonia. KUB X-Ray 04/11/17 00:00 IMPRESSION: Nonspecific bowel gas pattern with large amount of stool in the ascending colon Assessment & Plan - Diagnosis (1) Bradycardia with 41-50 beats per minute Is this a current diagnosis for this admission?: Yes Plan: Secondary to Toxic Effect of Beta Saima: Resolved. Patient reports that she was missed dosing her metoprolol. Patient's metoprolol was discontinued at time of admission however has been restarted. Patient heart rate under better control (2) Hypokalemia Is this a current diagnosis for this admission?: Yes Plan: Resolved. (3) Hypertension Qualifiers: Hypertension type: essential hypertension Qualified Code(s): I10 - Essential (primary) hypertension Is this a current diagnosis for this admission?: Yes Plan: Will continue current treatment. (4) Impaction of colon Is this a current diagnosis for this admission?: Yes Plan: Pt having regular BM currently. Will continue current treatment. (5) CVA, old, dysarthria Is this a current diagnosis for this admission?: Yes Plan: Stable. (6) UTI (urinary tract infection) Qualifiers: Urinary tract infection type: acute cystitis Hematuria presence: without hematuria Qualified Code(s): N30.00 - Acute cystitis without hematuria Is this a current diagnosis for this admission?: Yes Plan: Secondary to E.Coli: Will continue Doxycycline. (7) Acute CVA (cerebrovascular accident) Is this a current diagnosis for this admission?: Yes Plan: Ruled out. No evidence of acute CVA. (8) COPD with exacerbation Is this a current diagnosis for this admission?: Yes Plan: Will discontinue steroids today. (9) Septic shock Is this a current diagnosis for this admission?: Yes Plan: Secondary to E. Coli Acute Cystitis: Resolved. Pt will continue antibiotics. (10) Atrial fibrillation with RVR Is this a current diagnosis for this admission?: Yes Plan: Pt restarted to Metoprolol. Pt heart rate controlled. (11) CKD (chronic kidney disease), stage III Is this a current diagnosis for this admission?: Yes Plan: Stable. (12) DVT prophylaxis Is this a current diagnosis for this admission?: Yes Plan: Eliquis - Time Time Spent with patient: Less than 15 minutes - Pt awaiting placement.
--- NOTE | 2017-04-12 19:39 | PDOC PROGRESS REPORT ---
Subjective Progress Note for:: 04/12/17 Subjective:: Patient denying any significant complaints. Patient maintaining good vital signs.. Patient feels much better. Patient denied any sustained palpitations, dizziness, syncope, near syncope. Patient denying any fever chills. Patient denying any other significant discomfort. Patient seems to be maintaining a satisfactory heart rate. Review of systems: Rest review of systems negative. Medications: Medications have been reviewed. Physical Exam Vital Signs: Temp Pulse Resp BP Pulse Ox 97.9 F 81 18 140/77 H 93 04/12/17 15:16 04/12/17 15:16 04/12/17 15:16 04/12/17 15:16 04/12/17 15:16 Intake & Output 04/11/17 04/12/17 04/13/17 06:59 06:59 06:59 Intake Total 795 1894 593 Output Total 500 0 Balance 295 1894 593 Weight 83.8 kg 82.3 kg Exam: GENERAL: well-nourished and in no acute distress. Alert and oriented x3 HEAD: Atraumatic, normocephalic. EYES: Pupils equal round and reactive to light, extraocular movements intact, sclera anicteric, conjunctiva are normal. Decreased vision left eye ENT: TMs normal, nares patent, oropharynx clear without exudates. Moist mucous membranes. No oral ulcerations or bleeding gums noted NECK: supple without lymphadenopathy. Trachea is central. No cervical or axillary lymphadenopathy noted. Carotids are 2+, JVD WNL, LUNGS: Respiration seems nonlabored, no significant accessory muscle action noted. Breath sounds clear to auscultation bilaterally and equal noted. No wheezes rales or rhonchi noted. No significant dullness noted on percussion. CHEST: Palpation of the chest wall shows no significant chest wall tenderness. No other significant abnormalities noted. HEART: [place] [employer], No PSH, 1/6 MARTIN aortic area, 1/6 herrera systolic murmur mitral area, no rubs, no gallops. ABDOMEN: Soft, no significant tenderness appreciated, normoactive bowel sounds. No guarding, no rebound. No rigidity noted . No masses appreciated. EXTREMITIES: Pedal pulses are 1-2+, no calf tenderness noted. No clubbing or cyanosis.trace to 1+ pedal edema noted NEUROLOGICAL: Focused neurological exam showed no significant neurologic deficit. Normal speech, no focal weakness appreciated. PSYCH: Normal mood, normal affect. Judgment and insight within normal limits. SKIN: No significant ecchymosis, rash, ulcerations or signs of pruritus noted. MUSCULOSKELETAL EXAM: No significant joint swelling noted. Results Laboratory Results: 04/11/17 05:43 04/12/17 07:46 04/12/17 04/12/17 05:43 07:46 Sodium Cancelled 142.1 Potassium Cancelled 3.9 Chloride Cancelled 103 Carbon Dioxide Cancelled 29 Anion Gap Cancelled 10 BUN Cancelled 35 H Creatinine Cancelled 1.03 Est GFR ( Amer) Cancelled > 60 Est GFR (Non-Af Amer) Cancelled 52 L Glucose Cancelled 88 Calcium Cancelled 9.5 04/07/17 09:50 Blood Blood Culture - Final NO GROWTH IN 5 DAYS 04/07/17 08:55 Blood Blood Culture - Final NO GROWTH IN 5 DAYS 04/07/17 04/07/17 04/07/17 08:10 08:10 13:37 Creatine Kinase 28 L 22 L CK-MB (CK-2) 0.57 Troponin I < 0.012 NT-Pro-B Natriuret Pep 04/07/17 04/07/17 04/07/17 13:37 20:28 20:28 Creatine Kinase 36 CK-MB (CK-2) 0.61 0.33 Troponin I < 0.012 < 0.012 NT-Pro-B Natriuret Pep 04/08/17 04/08/17 04/08/17 07:37 07:37 07:37 Creatine Kinase 29 L CK-MB (CK-2) 0.79 Troponin I 0.014 NT-Pro-B Natriuret Pep 14633 H EKG Comments: Telemetry strips reviewed. Shows sinus rhythm without any sustained tachycardia or bradycardia arrhythmias. Impressions: Abdomen/Pelvis CT 04/07/17 00:00 IMPRESSION: 1. No acute or suspicious abdominopelvic abnormality. Lung base changes as above. Lung Scan-VQ NM 04/07/17 00:00 IMPRESSION: NORMAL PERFUSION LUNG SCAN. MILD HETEROGENOUS ACTIVITY SECONDARY TO UNDERLYING LUNG DISEASE. Head CT 04/07/17 02:02 IMPRESSION: No enhancing mass. Chronic changes of atrophy and microvascular ischemia. Low density area in the right occipital lobe, may correspond to the patient's prior infarct. Please correlate with clinical history/ exam. Comparison with prior studies would be helpful. Otherwise, MRI can help in further evaluation. Head MRI 04/08/17 00:00 IMPRESSION: ATROPHY AND CHRONIC MICRO-VASCULAR ISCHEMIC CHANGES. OLD INFARCT IN THE RIGHT OCCIPITAL LOBE. THERE ARE SMALL AREAS OF RESTRICTED PERFUSION AROUND THE PERIPHERY WHICH MAY INDICATE RECENT ACUTE INFARCTION SUPERIMPOSED ON OLD INFARCT. EVIDENCE OF ACUTE STROKE: NO. Chest X-Ray 04/09/17 06:00 IMPRESSION: Emphysema. Airspace opacities at the bilateral lung bases, may represent atelectasis or superimposed pneumonia. KUB X-Ray 04/11/17 00:00 IMPRESSION: Nonspecific bowel gas pattern with large amount of stool in the ascending colon Assessment & Plan - Diagnosis (1) Bradycardia with 41-50 beats per minute Is this a current diagnosis for this admission?: Yes (2) Hypotension Is this a current diagnosis for this admission?: Yes (3) Toxic effect of beta wally Is this a current diagnosis for this admission?: Yes (4) Coronary artery disease Qualifiers: Coronary Disease-Associated Artery/Lesion type: jamul artery Associated angina: angina presence unspecified Is this a current diagnosis for this admission?: Yes (5) Acute on chronic diastolic heart failure Is this a current diagnosis for this admission?: Yes (6) PAF (paroxysmal atrial fibrillation) Is this a current diagnosis for this admission?: Yes - Notes Notes: Start lisinopril 2.5 mg p.o. daily. Bradycardia: Currently stable. Continue to monitor heart rate. Patient has paroxysmal atrial fibrillation. Hypotension: This has resolved. Possibly related to excess antihypertensive and possible underlying hypovolemia. Coronary artery disease: Currently stable. Recommend resuming beta-wally when heart rate improves, JUN inhibitor/ARB, statins and antiplatelet therapy. We will start Ranexa while in the hospital to see if it will maintain sinus rhythm. Recommend small dose of JUN inhibitor to start with. Congestive heart failure: Acute on chronic diastolic heart failure. Continue p.o. Lasix 40 mg p.o. daily. Paroxysmal atrial fibrillation: Recommend rate control. Patient currently in atrial fibrillation. Continue Eliquis therapy. Patient on metoprolol succinate for rate control. - Time Time with patient: 15-25 minutes - CODE STATUS was discussed, patient remains DNR. Surrogate decision-maker unchanged. Multiple medical problems were addressed. More than 50% of the time spent coordinating care, discussing management plans with involved caregivers. Management plans discussed with involved personnels. Medical decision making was of moderate to high complexity , patient's has multiple comorbidities. Medications reviewed and adjusted accordingly: Yes
[2017-04-12] MEDS ORDERED: ATORVASTATIN CALCIUM 80 MG TABLET PO SCH (22:00)
[2017-04-12] MEDS: SENNOSIDES/DOCUSATE 8.6-50 MG 1 EACH TABLET PO SCH (22:04)
[2017-04-13 01:30] LABS: ANION GAP 11 (5-19); BLOOD UREA NITROGEN 33 mg/dL (7-20); CALCIUM 9.3 mg/dL (8.4-10.2); CARBON DIOXIDE 30 mmol/L (22-30); CHLORIDE 101 mmol/L (98-107); CREATININE RESULT 1.13 mg/dL (0.52-1.25); GLUCOSE 105 mg/dL (75-110); MAGNESIUM 1.9 mg/dL (1.6-2.3); POTASSIUM 3.8 mmol/L (3.6-5.0); SODIUM 141.5 mmol/L (137-145)
[2017-04-13] MEDS: IPRATROPIUM/ALBUTEROL 0.5-2.5 MG/3 ML AMPUL NEB SCH ×3 (01:50→14:27)
[2017-04-13] MEDS ORDERED: POTASSIUM CHLORIDE 20 MEQ/15 ML UDCUP PO ONE (02:00)
[2017-04-13] MEDS: GABAPENTIN 300 MG CAPSULE PO SCH ×2 (06:52→16:08)
[2017-04-13] MEDS: LANSOPRAZOLE 30 MG TAB.RAP.DR PO SCH ×2 (06:52→16:09)
[2017-04-13 07:04] LABS: HEMATOCRIT 40.2 % (36.0-47.0); HEMOGLOBIN 13.6 g/dL (12.0-15.5); HGB HCT DIFFERENCE 0.6; MEAN CORPUSCULAR HEMOGLOBIN 34.7 pg (27.0-33.4); MEAN CORPUSCULAR HGB CONC 33.8 g/dL (32.0-36.0); MEAN CORPUSCULAR VOLUME 103 fl (80-97); RED BLOOD COUNT 3.92 10^6/uL (3.72-5.28); RED CELL DISTRIBUTION WIDTH 13.7 % (11.5-14.0); WHITE BLOOD COUNT 8.2 10^3/uL (4.0-10.5)
--- NOTE | 2017-04-13 07:56 | EKG REPORT ---
SEVERITY:- ABNORMAL ECG - A-FLUTTER W/ PREDOM 3:1 AV BLOCK, A-RATE 326 MULTIFORM VENTRICULAR PREMATURE COMPLEXES PROBABLE LVH WITH SECONDARY REPOL ABNRM : Confirmed by: Florentin Jimenez MD 13-Apr-2017 07:55:47
--- NOTE | 2017-04-13 07:56 | EKG REPORT ---
SEVERITY:- ABNORMAL ECG - SINUS RHYTHM LEFT VENTRICULAR HYPERTROPHY : Confirmed by: Florentin Jimenez MD 13-Apr-2017 07:55:59
[2017-04-13] MEDS: METOCLOPRAMIDE HCL 10 MG TABLET PO SCH ×3 (08:58→16:08)
[2017-04-13] MEDS: ISOSORBIDE MONONITRATE 60 MG TAB.ER.24H PO SCH (09:09)
[2017-04-13] MEDS: APIXABAN 5 MG TABLET PO SCH (09:09)
[2017-04-13] MEDS: FUROSEMIDE 40 MG TABLET PO SCH (09:10)
[2017-04-13] MEDS: ASPIRIN 81 MG TABLET, CHEWABLE PO SCH (09:10)
[2017-04-13] MEDS: DOXYCYCLINE HYCLATE 100 MG TABLET PO SCH (09:10)
[2017-04-13] MEDS: RANOLAZINE 500 MG TAB.SR.12H PO SCH (09:10)
[2017-04-13] MEDS: METOPROLOL SUCCINATE 25 MG TAB.SR.24H PO SCH (09:11)
[2017-04-13] MEDS: AMLODIPINE BESYLATE 5 MG TABLET PO SCH (09:11)
[2017-04-13] MEDS: TIOTROPIUM BROMIDE DPI 5 CAP/KIT (18 MCG/CAP) IH SCH (09:13)
[2017-04-13] MEDS: BUDESONIDE/FORMOTEROL 160-4.5 MCG 60 PUFF/6 GM MDI IH SCH (09:14)
[2017-04-13] MEDS ORDERED: LISINOPRIL 5 MG TABLET PO SCH (10:00)
[2017-04-13] MEDS: MAGNESIUM OXIDE 400 MG TABLET PO SCH (11:46)
--- NOTE | 2017-04-13 12:22 | PDOC DISCHARGE SUMMARY ---
General - Admit/Disc Date/PCP Admission Date/Primary Care Provider: 04/07/17 04:20 Discharge Date: 04/13/17 - Discharge Diagnosis (1) Bradycardia with 41-50 beats per minute Is this a current diagnosis for this admission?: Yes Summary: Secondary to toxic effects of beta-wally dose: Resolved. Patient reports that she had taken too much of her beta-wally and that is what led to her having severe bradycardia. Patient's beta-wally has been adjusted and blood pressure and heart rate have been under better control. (2) Hypokalemia Is this a current diagnosis for this admission?: Yes Summary: Resolved. Patient required potassium replacement. (3) Hypertension Is this a current diagnosis for this admission?: Yes Summary: Blood pressure under good control we will continue current regimen (4) Impaction of colon Is this a current diagnosis for this admission?: Yes Summary: Resolved. Patient did have blood with bowel movement but this is secondary to constipation. Patient's hemoglobin has been stable. Patient not actively bleeding. (5) CVA, old, dysarthria Is this a current diagnosis for this admission?: Yes Summary: Supportive care (6) UTI (urinary tract infection) Is this a current diagnosis for this admission?: Yes Summary: Secondary due to acute cystitis due to E. coli: Patient is currently on doxycycline. Patient will complete doxycycline treatment on 04/18/2017. (7) Acute CVA (cerebrovascular accident) Is this a current diagnosis for this admission?: Yes Summary: There was initial concern that patient had a CVA however imaging did not demonstrate an acute CVA. (8) COPD with exacerbation Is this a current diagnosis for this admission?: Yes Summary: She received breathing treatments, steroids and antibiotics. Patient's steroids have been discontinued. Patient is doing well. No further intervention required (9) Septic shock Is this a current diagnosis for this admission?: Yes Summary: Secondary to acute cystitis due to E. coli: Resolved. Patient is on doxycycline. (10) Atrial fibrillation with RVR Is this a current diagnosis for this admission?: Yes Summary: She will continue on Eliquis and metoprolol. (11) CKD (chronic kidney disease), stage III Is this a current diagnosis for this admission?: Yes Summary: Renal function stable - Additional Information Resuscitation Status: Full Code Discharge Diet: Cardiac Discharge Activity: Activity As Tolerated, Balance Activity w/Rest, Weigh Daily Home Medications: Amlodipine Besylate [Norvasc 5 mg Tablet] 5 mg PO DAILY 04/07/17 Aspirin 81 mg PO DAILY PRN 04/07/17 Atorvastatin Calcium 40 mg PO QHS 04/07/17 Cranberry [Cranberry 1000 mg Capsule] 2,000 mg PO NOON 04/07/17 Ferrous Sulfate [Feosol 325 mg Tablet] 325 mg PO NOON 04/07/17 Furosemide [Lasix 40 mg Tablet] 40 mg PO QAM 04/07/17 Isosorbide Mononitrate [Isosorbide Mononitrate ER] 60 mg PO DAILY 04/07/17 L. Rhamnosus GG/Inulin [Culturelle Capsule] 1 each PO Q12 04/07/17 Magnesium Oxide [Mag-Ox 400 mg Tablet] 400 mg PO NOON 04/07/17 Pantoprazole Sodium 40 mg PO QHS 04/07/17 Potassium Chloride 10 meq PO NOON 04/07/17 Albuterol Sulfate [Proair HFA Inhalation Aerosol 8.5 gm MDI] 2 puff IH RTQ4HP PRN hfa.aer.ad 04/13/17 Alprazolam [Xanax 0.5 mg Tablet] 0.5 mg PO Q8HP PRN #10 tablet 04/13/17 Apixaban [Eliquis 5 mg Tablet] 5 mg PO BID tablet 04/13/17 Aspirin [Aspirin 81 mg Chewable Tablet] 81 mg PO DAILY tab.chew 04/13/17 Atorvastatin Calcium [Lipitor 80 mg Tablet] 80 mg PO QHS tablet 04/13/17 Budesonide/Formoterol Fumarate [Symbicort HFA 160-4.5 mcg Inhaler 6 gm] 2 puff IH Q12 inhaler 04/13/17 Doxycycline Hyclate [Vibramycin 100 mg Tablet] 100 mg PO Q12 #10 tablet Furosemide [Lasix 40 mg Tablet] 40 mg PO DAILY tablet 04/13/17 Gabapentin [Neurontin 300 mg Capsule] 300 mg PO Q8 #10 capsule 04/13/17 Ipratropium/Albuterol Sulfate [Duoneb 3 ml Ampul] 3 ml NEB RTQ6 vial.neb Lansoprazole [Prevacid 30 mg Odt Tablet] 30 mg PO BID@0600,1700 tab.rap.dr 03/22 Lisinopril [Prinivil 5 mg Tablet] 2.5 mg PO DAILY tablet 04/13/17 Metoprolol Succinate [Toprol Xl 25 mg Tab.sr] 12.5 mg PO Q12 tab.sr.24h Ranolazine [Ranexa 500 mg Tab.sr] 500 mg PO Q12 tab.sr.12h 04/13/17 Sennosides/Docusate 8.6-50 mg [Senna Plus Tablet] 2 each PO QHS tablet Tiotropium [place] [Spiriva Handihaler 5 Cap/Kit (18 Mcg/Cap)] 1 cap IH DAILY kit 04/13/17 History of Present Illness Patient complains of: Shaking and not able to speak History of Present Illness: LISA FRANCISCO is a 72 year old female who was admitted due to shaking and inability to speak. Patient in the emergency room was found to be bradycardic. Hospital Course Hospital Course: She is a 72-year-old female that was admitted to our facility after being found at home not able to speak and shaking. When patient arrived to the emergency room patient was found to be bradycardic, hypotensive and experiencing episodes of expressive aphasia. Patient's heart rate was noted to be in the 20s. Patient was admitted to the hospital were all AV manoj agents were discontinued. Patient's heart rate improved. Cardiology was consulted and evaluated patient as well. Patient was restarted on low-dose metoprolol and has tolerated those well. Patient reports that she took too much of her metoprolol at home. There was initial concern for possible CVA however imaging did not demonstrate evidence consistent with acute event. Once patient's heart rate and blood pressure improved patient was back to baseline. Patient was found to be septic due to acute cystitis secondary to E. coli that was treated with antibiotics. Patient is currently on doxycycline and will complete doxycycline treatment on 04/18/2017. Patient was noted to be impacted and required bowel regimen. Impaction has resolved patient was noted to have scant blood with stool due to hard stool. Patient currently not actively bleeding. Patient hemodynamically stable. Physical Exam Vital Signs: Temp Pulse Resp BP Pulse Ox 98.2 F 128 H 21 H 114/68 97 04/13/17 10:52 04/13/17 10:52 04/13/17 10:52 04/13/17 10:52 04/13/17 10:52 Intake & Output 04/12/17 04/13/17 04/14/17 06:59 06:59 06:59 Intake Total 1894 893 Output Total 0 Balance 1894 893 Weight 82.3 kg 81.5 kg General appearance: PRESENT: no acute distress, well-developed, well-nourished Head exam: PRESENT: atraumatic, normocephalic Eye exam: PRESENT: conjunctiva pink, EOMI. ABSENT: scleral icterus Ear exam: PRESENT: normal external ear exam Mouth exam: PRESENT: moist, tongue midline Neck exam: ABSENT: carotid bruit, JVD, lymphadenopathy, thyromegaly Respiratory exam: PRESENT: clear to auscultation edwin. ABSENT: rales, rhonchi, wheezes Cardiovascular exam: PRESENT: irregular rhythm. ABSENT: diastolic murmur, rubs , systolic murmur Pulses: PRESENT: normal dorsalis pedis pul GI/Abdominal exam: PRESENT: ascites Rectal exam: PRESENT: deferred Extremities exam: PRESENT: full ROM. ABSENT: calf tenderness, clubbing, pedal edema Neurological exam: PRESENT: alert, awake, oriented to person, oriented to place , oriented to time, oriented to situation, CN II-XII grossly intact. ABSENT: motor sensory deficit Psychiatric exam: PRESENT: appropriate affect, normal mood. ABSENT: homicidal ideation, suicidal ideation Skin exam: PRESENT: dry, intact, warm. ABSENT: cyanosis, rash Results Laboratory Results: 04/13/17 06:51 04/13/17 01:04 04/13/17 04/13/17 01:04 06:51 WBC 8.2 RBC 3.92 Hgb 13.6 Hct 40.2 MCV 103 H MCH 34.7 H MCHC 33.8 RDW 13.7 Plt Count 268 Sodium 141.5 Potassium 3.8 Chloride 101 Carbon Dioxide 30 Anion Gap 11 BUN 33 H Creatinine 1.13 Est GFR ( Amer) 57 L Est GFR (Non-Af Amer) 47 L Glucose 105 Calcium 9.3 Magnesium 1.9 04/07/17 09:50 Blood Blood Culture - Final NO GROWTH IN 5 DAYS 04/07/17 08:55 Blood Blood Culture - Final NO GROWTH IN 5 DAYS 04/07/17 04/07/17 04/07/17 08:10 08:10 13:37 Creatine Kinase 28 L 22 L CK-MB (CK-2) 0.57 Troponin I < 0.012 NT-Pro-B Natriuret Pep 04/07/17 04/07/17 04/07/17 13:37 20:28 20:28 Creatine Kinase 36 CK-MB (CK-2) 0.61 0.33 Troponin I < 0.012 < 0.012 NT-Pro-B Natriuret Pep 04/08/17 04/08/17 04/08/17 07:37 07:37 07:37 Creatine Kinase 29 L CK-MB (CK-2) 0.79 Troponin I 0.014 NT-Pro-B Natriuret Pep [id number] H Impressions: Abdomen/Pelvis CT 04/07/17 00:00 IMPRESSION: 1. No acute or suspicious abdominopelvic abnormality. Lung base changes as above. Lung Scan-VQ NM 04/07/17 00:00 IMPRESSION: NORMAL PERFUSION LUNG SCAN. MILD HETEROGENOUS ACTIVITY SECONDARY TO UNDERLYING LUNG DISEASE. Head CT 04/07/17 02:02 IMPRESSION: No enhancing mass. Chronic changes of atrophy and microvascular ischemia. Low density area in the right occipital lobe, may correspond to the patient's prior infarct. Please correlate with clinical history/ exam. Comparison with prior studies would be helpful. Otherwise, MRI can help in further evaluation. Head MRI 04/08/17 00:00 IMPRESSION: ATROPHY AND CHRONIC MICRO-VASCULAR ISCHEMIC CHANGES. OLD INFARCT IN THE RIGHT OCCIPITAL LOBE. THERE ARE SMALL AREAS OF RESTRICTED PERFUSION AROUND THE PERIPHERY WHICH MAY INDICATE RECENT ACUTE INFARCTION SUPERIMPOSED ON OLD INFARCT. EVIDENCE OF ACUTE STROKE: NO. Chest X-Ray 04/09/17 06:00 IMPRESSION: Emphysema. Airspace opacities at the bilateral lung bases, may represent atelectasis or superimposed pneumonia. KUB X-Ray 04/11/17 00:00 IMPRESSION: Nonspecific bowel gas pattern with large amount of stool in the ascending colon
[2017-04-13 17:30] VITALS: BP 131/78
--- NOTE | 2017-04-13 21:23 | PDOC PROGRESS REPORT ---
Subjective Progress Note for:: 04/13/17 Subjective:: Patient denying any significant complaints. Patient maintaining good vital signs.. Patient feels much better. Patient denied any sustained palpitations, dizziness, syncope, near syncope. Patient denying any fever chills. Patient denying any other significant discomfort. Patient seems to be maintaining a satisfactory heart rate. Review of systems: Rest review of systems negative. Medications: Medications have been reviewed. Physical Exam Vital Signs: Temp Pulse Resp BP Pulse Ox 99.3 F 79 20 131/78 H 95 04/13/17 16:18 04/13/17 16:18 04/13/17 16:18 04/13/17 16:18 04/13/17 16:18 Intake & Output 04/12/17 04/13/17 04/14/17 06:59 06:59 06:59 Intake Total 8251 740 0545 Output Total 0 Balance 0413 947 5570 Weight 82.3 kg 81.5 kg Results Laboratory Results: 04/13/17 06:51 04/13/17 01:04 04/13/17 04/13/17 01:04 06:51 WBC 8.2 RBC 3.92 Hgb 13.6 Hct 40.2 MCV 103 H MCH 34.7 H MCHC 33.8 RDW 13.7 Plt Count 268 Sodium 141.5 Potassium 3.8 Chloride 101 Carbon Dioxide 30 Anion Gap 11 BUN 33 H Creatinine 1.13 Est GFR ( Amer) 57 L Est GFR (Non-Af Amer) 47 L Glucose 105 Calcium 9.3 Magnesium 1.9 04/07/17 04/07/17 04/07/17 08:10 08:10 13:37 Creatine Kinase 28 L 22 L CK-MB (CK-2) 0.57 Troponin I < 0.012 NT-Pro-B Natriuret Pep 04/07/17 04/07/17 04/07/17 13:37 20:28 20:28 Creatine Kinase 36 CK-MB (CK-2) 0.61 0.33 Troponin I < 0.012 < 0.012 NT-Pro-B Natriuret Pep 04/08/17 04/08/17 04/08/17 07:37 07:37 07:37 Creatine Kinase 29 L CK-MB (CK-2) 0.79 Troponin I 0.014 NT-Pro-B Natriuret Pep 43427 H Impressions: Abdomen/Pelvis CT 04/07/17 00:00 IMPRESSION: 1. No acute or suspicious abdominopelvic abnormality. Lung base changes as above. Lung Scan-VQ NM 04/07/17 00:00 IMPRESSION: NORMAL PERFUSION LUNG SCAN. MILD HETEROGENOUS ACTIVITY SECONDARY TO UNDERLYING LUNG DISEASE. Head CT 04/07/17 02:02 IMPRESSION: No enhancing mass. Chronic changes of atrophy and microvascular ischemia. Low density area in the right occipital lobe, may correspond to the patient's prior infarct. Please correlate with clinical history/ exam. Comparison with prior studies would be helpful. Otherwise, MRI can help in further evaluation. Head MRI 04/08/17 00:00 IMPRESSION: ATROPHY AND CHRONIC MICRO-VASCULAR ISCHEMIC CHANGES. OLD INFARCT IN THE RIGHT OCCIPITAL LOBE. THERE ARE SMALL AREAS OF RESTRICTED PERFUSION AROUND THE PERIPHERY WHICH MAY INDICATE RECENT ACUTE INFARCTION SUPERIMPOSED ON OLD INFARCT. EVIDENCE OF ACUTE STROKE: NO. Chest X-Ray 04/09/17 06:00 IMPRESSION: Emphysema. Airspace opacities at the bilateral lung bases, may represent atelectasis or superimposed pneumonia. KUB X-Ray 04/11/17 00:00 IMPRESSION: Nonspecific bowel gas pattern with large amount of stool in the ascending colon Assessment & Plan - Diagnosis (1) Bradycardia with 41-50 beats per minute Is this a current diagnosis for this admission?: Yes (2) Hypotension Is this a current diagnosis for this admission?: Yes (3) Toxic effect of beta wally Is this a current diagnosis for this admission?: Yes (4) Coronary artery disease Qualifiers: Coronary Disease-Associated Artery/Lesion type: [place] artery Associated angina: angina presence unspecified Is this a current diagnosis for this admission?: Yes (5) Acute on chronic diastolic heart failure Is this a current diagnosis for this admission?: Yes (6) PAF (paroxysmal atrial fibrillation) Is this a current diagnosis for this admission?: Yes - Notes Notes: Bradycardia: Currently resolved. Most likely related to excess beta-wally intake but could well be related to sick sinus syndrome, possible vagal tone increase. Patient now off vasopressors. Now off a scopolamine patch. No significant bradycardia noted after adjustment of medications. Hypotension: This has resolved. Cerebrovascular accident: Difficult to assess whether it is acute or chronic. Possible seizures. Continue to observe. Patient has paroxysmal atrial fibrillation. Continue Eliquis. Coronary artery disease: Currently stable. Continue current dose of beta- blockers, JUN inhibitor/ARB, statins and antiplatelet therapy. Patient's medical regimen has been optimized. Congestive heart failure: Acute on chronic diastolic heart failure. Currently resolved.. Feel that this is congestive heart failure acute on chronic may have been brought on by aggressive fluid resuscitation for hypotension. Continue diuretics at baseline. Paroxysmal atrial fibrillation: Recommend rate control. Patient noted to have intermittent paroxysmal atrial fibrillation. Continue with rate control and Eliquis therapy. - Time Time with patient: 15-25 minutes - CODE STATUS was discussed, patient remains full code. Surrogate decision-maker unchanged. Multiple medical problems were addressed. More than 50% of the time spent coordinating care, discussing management plans with involved caregivers. Management plans discussed with involved personnels. Medical decision making was of moderate to high complexity , patient's has multiple comorbidities. Patient has been stable and is likely to be discharged later on today. Will be happy to see patients in the office. Medications reviewed and adjusted accordingly: Yes
== END 2017-04-13 19:47 | DRG 871 ==
LOC: ER 01:14 → EH 04:20 → UNDOADMIN 04:45 → EH 04:45 → ICU 06:26 → 3S 04-09 15:23
PROVIDERS: ADMIT Internal Medicine; ATTEND Internal Medicine
DX: A41.9 Sepsis, unspecified organism (principal); J96.21 Acute and chronic respiratory failure with hypoxia; I50.33 Acute on chronic diastolic (congestive) heart failure; R65.21 Severe sepsis with septic shock; N39.0 Urinary tract infection, site not specified; J44.1 Chronic obstructive pulmonary disease with (acute) exacerbation; F13.20 Sedative, hypnotic or anxiolytic dependence, uncomplicated; T44.7X1A Poisoning by beta-adrenoreceptor antagonists, accidental (unintentional), initial encounter; R00.1 Bradycardia, unspecified; Z66 Do not resuscitate; I69.322 Dysarthria following cerebral infarction; T44.3X1A Poisoning by other parasympatholytics [anticholinergics and antimuscarinics] and spasmolytics, accidental (unintentional), initial encounter; T44.991A Poisoning by other drug primarily affecting the autonomic nervous system, accidental (unintentional), initial encounter; I95.9 Hypotension, unspecified; I48.0 Paroxysmal atrial fibrillation; E87.6 Hypokalemia; R41.82 Altered mental status, unspecified; E78.00 Pure hypercholesterolemia, unspecified; R91.1 Solitary pulmonary nodule; I25.10 Atherosclerotic heart disease of native coronary artery without angina pectoris; N18.3 Chronic kidney disease, stage 3 (moderate); E66.9 Obesity, unspecified; H54.42 Blindness, left eye, normal vision right eye; K59.00 Constipation, unspecified; B96.20 Unspecified Escherichia coli [E. coli] as the cause of diseases classified elsewhere; Y92.019 Unspecified place in single-family (private) house as the place of occurrence of the external cause; Z68.29 Body mass index [BMI] 29.0-29.9, adult; Z87.891 Personal history of nicotine dependence; Z79.82 Long term (current) use of aspirin; Z79.899 Other long term (current) drug therapy
CPT/HCPCS: 36415; 36600; 51702; 70450; 70460; 70551; 71010; 74000; 74176; 78580; 80048; 80053; 80307; 81001; 82330; 82533; 82550; 82553; 82607; 82728; 82746; 82803; 82962; 83540; 83550; 83605; 83735; 83880; 84100; 84443; 84466; 84484; 85025; 85027; 85045; 85610; 85652; 85730; 87040; 87086; 87088; 87186; 93005; 93010; 94640; 94660; 94667; 94668; 96365; 96375; 99291; 99292; A9540; G8978-GP; G8979-GP; G8987-GO; G8988-GO; G8989-GO; G8999-GN; G9158-GN; G9186-GN; J0461; J0610; J0696; J1265; J1335; J1610; J1630; J1644; J1940; J2060; J2405; J2765; J2920; J2930; J3420; J3490; J7030; J7060; J7620; P9047; Q9969

== ENCOUNTER 2017-06-04 21:04 | Emergency (ER) | payer MEDICARE, MEDICAID ==
--- NOTE | 2017-06-04 22:00 | RADIOLOGY REPORT (SQ) ---
EXAM DESCRIPTION: CT HEAD WITHOUT COMPLETED DATE/TIME: 06/04/2017 9:42 pm REASON FOR STUDY: fall on blood thinners COMPARISON: April 2017 TECHNIQUE: Axial images acquired through the brain without intravenous contrast. Images reviewed wi th bone, brain and subdural windows. Images stored on PACS. All CT scanners at this facility use dose modulation, iterative reconstruction, and/or weight based d osing when appropriate to reduce radiation dose to as low as reasonably achievable (ALARA). [facility]: Dose Right [facility]: CareDose [facility]: Dose Right [facility]: Teradose 4D [facility]: Smart [employer] RADIATION DOSE: Up-to-date CT equipment and radiation dose reduction techniques were employed. CTDIv ol: 64.6 mGy. DLP: 1163 mGy-cm.mGy. LIMITATIONS: None. FINDINGS: VENTRICLES: Prominent. CEREBRUM: No masses. No hemorrhage. No midline shift. Areas of low density in the white matter mos t likely due to chronic micro-vascular ischemic change. Low density area is again identified in the right occipital lobe most consistent with an area of prior infarction. No evidence for acute infarct ion. CEREBELLUM: No masses. No hemorrhage. No alteration of density. No evidence for acute infarction. EXTRAAXIAL SPACES: Age-related involutional change. No fluid collections. No masses. ORBITS AND GLOBE: No intra- or extraconal masses. Normal contour of globe without masses. CALVARIUM: No fracture. PARANASAL SINUSES: No fluid or mucosal thickening. SOFT TISSUES: No mass or hematoma. OTHER: No other significant finding. IMPRESSION: CHRONIC CHANGES OF ATROPHY AND MICROVASCULAR ISCHEMIA. NO ACUTE PROCESS. EVIDENCE OF ACUTE STROKE: NO. TECHNICAL DOCUMENTATION: JOB ID: [id number] Quality ID # [id number]: Final reports with documentation of one or more dose reduction techniques (e.g., Au tomated exposure control, adjustment of the mA and/or kV according to patient size, use of iterative reconstruction technique) 2010 [employer]- All Rights Reserved
--- NOTE | 2017-06-04 22:03 | RADIOLOGY REPORT (SQ) ---
EXAM DESCRIPTION: CT CERVICAL SPINE WITHOUT COMPLETED DATE/TIME: 06/04/2017 9:42 pm REASON FOR STUDY: fall on blood thinners COMPARISON: None. TECHNIQUE: Axial images acquired through the cervical spine without intravenous contrast. Images re viewed with lung, soft tissue and bone windows. Reconstructed coronal and sagittal MPR images review ed. Images stored on PACS. All CT scanners at this facility use dose modulation, iterative reconstruction, and/or weight based d osing when appropriate to reduce radiation dose to as low as reasonably achievable (ALARA). [facility]: Dose Right [facility]: CareDose [facility]: Dose Right [facility]: Teradose 4D [facility]: Smart [employer] RADIATION DOSE: Up-to-date CT equipment and radiation dose reduction techniques were employed. CTDIv ol: 19.4 mGy. DLP: 387 mGy-cm. mGy. LIMITATIONS: None. FINDINGS: ALIGNMENT: Anatomic. MINERALIZATION: Normal. VERTEBRAL BODIES: No fractures or dislocation. DISCS: Multilevel disc space narrowing with osteophytes. FACETS, LATERAL MASSES, POSTERIOR ELEMENTS: Facet arthropathy. No fractures. No dislocation. No ac [place] findings. HARDWARE: None in the spine. VISUALIZED RIBS: No fractures. LUNG APICES AND SOFT TISSUES: No significant or acute findings. OTHER: No other significant finding. IMPRESSION: CHRONIC DEGENERATIVE CHANGES. NO ACUTE FINDINGS. TECHNICAL DOCUMENTATION: JOB ID: [id number] Quality ID # [id number]: Final reports with documentation of one or more dose reduction techniques (e.g., Au tomated exposure control, adjustment of the mA and/or kV according to patient size, use of iterative reconstruction technique) 2010 [employer]- All Rights Reserved
--- NOTE | 2017-06-04 22:17 | ER Document Report ---
ED General - General Chief Complaint: Facial Injury Stated Complaint: FALL FACE PAIN Time Seen by Provider: 06/04/17 21:20 Notes: Patient is a 72-year-old female past medical history of atrial fibrillation, coronary artery disease, mobility difficulties who presents after mechanical fall in which she fell and struck her face and head. Patient fell on 2 separate occasions the first time after she tripped over her oxygen tubing and the second after she tripped over a rug. Patient denies pain to any location except left side of her face. She denies loss of consciousness, vomiting, weakness or numbness. Pain to her face is described as a dull, constant, throbbing soreness. Touching area worsens the pain. Nothing improves the pain. The patient has been taking her apixaban as directed. She has not seen her primary doctor regarding today's concerns. TRAVEL OUTSIDE OF THE [place] IN LAST 30 DAYS: No - Related Data Allergies/Adverse Reactions: ciprofloxacin [From Cipro] Adverse Reaction (Verified 04/07/17 03:01) codeine Adverse Reaction (Verified 04/07/17 03:01) morphine Adverse Reaction (Verified 04/07/17 03:01) Penicillins Adverse Reaction (Verified 04/07/17 03:01) promethazine [From Phenergan] Adverse Reaction (Verified 04/07/17 03:01) sulfamethoxazole [From Bactrim] Adverse Reaction (Verified 04/07/17 03:01) trimethoprim [From Bactrim] Adverse Reaction (Verified 04/07/17 03:01) Home Medications: Current Home Medications Albuterol Sulfate [Ventolin Hfa] 90 mcg IH PRN PRN 06/04/17 [History] Amlodipine Besylate 5 mg PO DAILY 06/04/17 [History] Apixaban [Eliquis 5 mg Tablet] 5 mg PO DAILY 06/04/17 [History] Atorvastatin Calcium 20 mg PO DAILY 06/04/17 [History] Budesonide/Formoterol Fumarate [Symbicort 160-4.5 Mcg Inhaler] 160 mcg IH PRN PRN 06/04/17 [History] Furosemide [Lasix] 40 mg PO DAILY 06/04/17 [History] Gabapentin 300 mg PO DAILY 06/04/17 [History] Magnesium Oxide [Magnesium] 400 mg PO DAILY 06/04/17 [History] Metoprolol Succinate 25 mg PO DAILY 06/04/17 [History] Ranolazine [Ranexa] 500 mg PO DAILY 06/04/17 [History] Past Medical History - General Information source: Patient - Social History Smoking Status: Never Smoker Chew tobacco use (# tins/day): No Frequency of alcohol use: None Drug Abuse: None Lives with: Family Family History: Hypertension Patient has suicidal ideation: No Patient has homicidal ideation: No - Past Medical History Cardiac Medical History: Reports: Hx Coronary Artery Disease, Hx Heart Attack, Hx Hypercholesterolemia, Hx Hypertension Pulmonary Medical History: Reports: Hx COPD Neurological Medical History: Reports: Hx Cerebrovascular Accident Renal/ Medical History: Denies: Hx Peritoneal Dialysis Review of Systems - Review of Systems Notes: Constitutional: Negative for fever. Eyes: Negative for visual changes. ENT: positive for facial injury Cardiovascular: Negative for chest injury. Respiratory: Negative for shortness of breath. Gastrointestinal: Negative for abdominal injury. Genitourinary: Negative for genital injury Musculoskeletal: Negative for back injury. Skin: Negative for laceration/abrasions. Neurological: Positive for head injury. Physical Exam - Vital signs Vitals: Temp 97.5 F 06/04/17 21:09 Interpretation: Normal Notes: PHYSICAL EXAMINATION: GENERAL: Well-appearing, no acute distress. HEAD: There is extensive bruising over the left cheek in the periorbital region of the left eye with associated bruising of the left upper eyelid. EYES: Pupils equal round and reactive to light, extraocular movements intact, no proptosis, mild conjunctival hemorrhage. Visual acuity is intact, 2025 in the right, 2020 in the left bedside testing. ENT: nares patent, no oral pharyngeal trauma. No hemotympanum, no Jaime's sign , no raccoon eyes. NECK: No midline cervical spine tenderness. Patient able to move their head to 45 bilaterally without any discomfort. LUNGS: Breath sounds clear to auscultation bilaterally and equal. No wheezes rales or rhonchi. HEART: Regular rate and rhythm without murmurs. CHEST WALL: No ecchymosis over the chest wall. ABDOMEN: Soft, nontender, normoactive bowel sounds. No guarding, no rebound. No abdominal bruising EXTREMITIES: Normal range of motion, no pitting or edema. No long bone deformities. BACK: No midline spinal tenderness, step-offs, or deformities. NEUROLOGICAL: Face symmetric. Tongue protrudes midline. Extraocular motions intact. Pupils are 2 mm and equally reactive. Normal speech, normal gait. 5 out of 5 strength in both the distal and proximal upper and lower extremities bilaterally. Sensation is grossly intact throughout. Finger to nose testing normal. Pronator drift normal. PSYCH: Normal mood, normal affect. SKIN: Warm, Dry, normal turgor, no rashes or lesions noted. Course - Re-evaluation Re-evalutation: 06/04/17 22:16 Presentation of a well appearing elderly patient in no acute distress, vitals within normal limits after a mechanical fall. Patient denies a syncopal episode as the cause for today's fall. No focal neurologic deficits on exam, no evidence of basilar skull fracture on exam without evidence of hemotympanum, raccoon eyes, or periauricular hematoma. No papilledema. Patient does take anticoagulation in the form of apixaban. GCS is 15. No loss of consciousness. No episodes of vomiting. Based on age and use of anticoagulation a CT of the head has been obtained which is negative for any acute intracranial bleed. Likewise, patient was unable to be clinically cleared due to age by [place] cervical spine criteria. A CT of the cervical spine was also obtained and likewise is negative for any acute fracture. Patient does have bruising over the left maxillary sinus and around the periorbital region although the CT scan of the head did come down to the orbital region and over the maxillary sinus and does not show any acute fracture. No indication for further imaging of the cervical spine. Patient has no focal deformities or limited range of motion in any joint space. Chest and abdominal exam are benign without any focal tenderness, shortness of breath, or bruising over the chest or abdominal wall. Patient has no flank tenderness. There is no obvious findings on trauma exam today and therefore no further imaging or evaluation will be obtained at this time. At this time will discharge with return precautions and follow-up recommendations. Verbal discharge instructions given a the bedside and opportunity for questions given. Medication warnings reviewed. Patient is in agreement with this plan and has verbalized understanding of return precautions and the need for primary care follow-up in the next 24-72 hours. 06/05/17 02:51 The daughter did arrive to transport the patient home but approximately 3-4 minutes prior to arrival the patient began complaining of chest pain. This was a left-sided chest discomfort without any radiation of the pain. She does not have any associated nausea, vomiting or diaphoresis. An EKG was immediately obtained during episode of chest pain does not show any ischemic changes. She has no tachycardia or tachypnea and denies any shortness of breath to suggest an acute pulmonary embolus. However, given that her pain is ongoing and not resolved by a GI cocktail receive a cardiac workup including 2 troponins 4 hours apart. I overall have a low clinical suspicion that the patient is having an acute myocardial infarction while here in the emergency department. However, I believe the safest thing to do is to keep the patient and proceed with serial troponin testing. 06/05/17 03:58 First troponin is normal. Second troponin will be obtained at approximately 7 AM in the morning. CXR is negative. 06/05/17 04:09 Nurse has informed me that the patient has vomited. A repeat EKG will be obtained. Nitro will be administered. Will also given zofran. Disposition pending how patient is feeling in the morning and after repeat troponin. Care signed out to - Vital Signs Vital signs: Temp Pulse Resp BP Pulse Ox 97.5 F 24 H 134/82 H 95 06/04/17 22:53 06/05/17 03:02 06/05/17 03:02 06/05/17 03:02 - Laboratory Result Diagrams: 06/05/17 03:05 06/05/17 03:05 Laboratory results interpreted by me: 06/05/17 06/05/17 03:05 03:05 MCV 99 H Sodium 149.6 H Carbon Dioxide 33 H BUN 24 H Creatinine 1.40 H Est GFR ( Amer) 44 L Est GFR (Non-Af Amer) 37 L Alkaline Phosphatase 137 H Creatine Kinase 29 L - Diagnostic Test Radiology reviewed: Image reviewed, Reports reviewed Radiology results interpreted by me: 06/04/17 22:17 CT head: No acute intracranial bleed - EKG Interpretation by Me Additional EKG results interpreted by me: 06/04/17 22:17 Normal sinus rhythm. Rate 70. No ST elevations or depressions. QTC is 458. Discharge - Discharge Clinical Impression: Fall Qualifiers: Encounter type: initial encounter Qualified Code(s): W19.XXXA - Unspecified fall, initial encounter Head trauma Qualifiers: Encounter type: initial encounter Qualified Code(s): S09.90XA - Unspecified injury of head, initial encounter Facial bruising Qualifiers: Encounter type: initial encounter Qualified Code(s): S00.83XA - Contusion of other part of head, initial encounter Chest pain Qualifiers: Chest pain type: unspecified Qualified Code(s): R07.9 - Chest pain, unspecified Condition: Stable Disposition: HOME, SELF-CARE Additional Instructions: You have likely sustained a contusion (bruise) to your head. If you had a CT scan done, it did not show any evidence of serious injury or bleeding. Symptoms to expect from a concussion include nausea, mild to moderate headache, difficulty concentrating or sleeping, and mild lightheadedness. These symptoms should improve over the next few days to weeks. Return to the emergency department or follow-up with your primary care doctor if your symptoms are not improving over this time. Signs of a more serious head injury include vomiting , severe headache, excessive sleepiness or confusion, and weakness or numbness in your face, arms or legs. Return immediately to the Emergency Department if you experience any of these more concerning symptoms. Rest, avoid strenuous physical or mental activity, and avoid activities that could potentially result in another head injury until all your symptoms from this head injury are completely resolved for at least 2-3 weeks. Please take Tylenol 1000 mg every 6 hours as needed for pain to the face. You may also apply ice compress to the area.
--- NOTE | 2017-06-04 23:47 | EKG REPORT ---
SEVERITY:- OTHERWISE NORMAL ECG - SINUS RHYTHM BORDERLINE LEFT AXIS DEVIATION CONSIDER INFERIOR OR AGE INDETERMINATE : Confirmed by: Malcolm Lo 04-Jun-2017 23:46:49
[2017-06-05] MEDS ORDERED: ACETAMINOPHEN 325 MG TABLET PO ONE (01:25)
[2017-06-05] MEDS ORDERED: ACETAMINOPHEN 325 MG TABLET ONE ×2 (01:47→01:53)
[2017-06-05] MEDS ORDERED: METOCLOPRAMIDE HCL ORAL SOLN 10 MG/10 ML UDCUP PO ONE (02:01)
[2017-06-05] MEDS ORDERED: LIDOCAINE 2% VISCOUS SOLN 20 ML UDCUP PO ONE (02:01)
[2017-06-05] MEDS ORDERED: MAG HYDROX/AL HYDROX/SIMETH SUSP 30 ML UDCUP PO ONE (02:01)
[2017-06-05] MEDS ORDERED: ASPIRIN 81 MG TABLET, CHEWABLE PO ONE (02:38)
[2017-06-05 03:17] LABS: ABSOLUTE EOSINOPHILS # (AUTO) 0.1 10^3/uL (0.0-0.6); ABSOLUTE LYMPHOCYTES (AUTO) 1.9 10^3/uL (0.5-4.7); ABSOLUTE MONOCYTES (AUTO) 0.6 10^3/uL (0.1-1.4); ABSOLUTE NEUT (AUTO) 3.9 10^3/uL (1.7-8.2); BASOPHILS % (AUTO) 0.4 % (0-2); EOSINOPHILS % (AUTO) 1.8 % (0-6); HEMATOCRIT 37.6 % (36.0-47.0); HEMOGLOBIN 12.7 g/dL (12.0-15.5); HGB HCT DIFFERENCE 0.5; LYMPHOCYTES % (AUTO) 28.9 % (13-45); MEAN CORPUSCULAR HEMOGLOBIN 33.3 pg (27.0-33.4); MEAN CORPUSCULAR HGB CONC 33.8 g/dL (32.0-36.0); MEAN CORPUSCULAR VOLUME 99 fl (80-97); MONOCYTES % (AUTO) 9.6 % (3-13); RED BLOOD COUNT 3.81 10^6/uL (3.72-5.28); RED CELL DISTRIBUTION WIDTH 12.7 % (11.5-14.0); SEGMENTED NEUTROPHILS % (AUTO) 59.3 % (42-78); WHITE BLOOD COUNT 6.6 10^3/uL (4.0-10.5)
[2017-06-05] MEDS ORDERED: NITROGLYCERIN 0.4 MG/TAB 25 TAB/BOTTLE SL PRN (03:17)
[2017-06-05 03:31] LABS: ALANINE AMINOTRANSFERASE 38 U/L (9-52); ALKALINE PHOSPHATASE 137 U/L (38-126); ANION GAP 12 (5-19); ASPARTATE AMINO TRANSFERASE 27 U/L (14-36); BILIRUBIN,DIRECT 0.4 mg/dL (0.0-0.4); BILIRUBIN,TOTAL 0.5 mg/dL (0.2-1.3); BLOOD UREA NITROGEN 24 mg/dL (7-20); CALCIUM 9.7 mg/dL (8.4-10.2); CARBON DIOXIDE 33 mmol/L (22-30); CHLORIDE 105 mmol/L (98-107); CREATINE KINASE 29 U/L (30-135); GLUCOSE 109 mg/dL (75-110); POTASSIUM 4.1 mmol/L (3.6-5.0); SODIUM 149.6 mmol/L (137-145); TOTAL PROTEIN 7.1 g/dL (6.3-8.2)
--- NOTE | 2017-06-05 03:32 | RADIOLOGY REPORT (SQ) ---
EXAM DESCRIPTION: CHEST SINGLE VIEW COMPLETED DATE/TIME: 06/05/2017 3:21 am REASON FOR STUDY: chest pain COMPARISON: 04/09/2017 EXAM PARAMETERS: NUMBER OF VIEWS: One view. TECHNIQUE: Single frontal radiographic view of the chest acquired. RADIATION DOSE: NA LIMITATIONS: None. FINDINGS: LUNGS AND PLEURA: No opacities, masses or pneumothorax. No pleural effusion. MEDIASTINUM AND HILAR STRUCTURES: No masses. Contour normal. HEART AND VASCULAR STRUCTURES: Heart normal in size. Normal vasculature. BONES: No acute findings. HARDWARE: None in the chest. OTHER: No other significant finding. IMPRESSION: NO ACUTE RADIOGRAPHIC FINDING IN THE CHEST. TECHNICAL DOCUMENTATION: JOB ID: [id number]
[2017-06-05 03:41] LABS: CREATINE KINASE MB 0.51 ng/mL (<4.55)
[2017-06-05 03:49] LABS: TROPONIN I < 0.012 ng/mL
[2017-06-05] MEDS ORDERED: LIDOCAINE 5% (700 MG) TRANSDERMAL ADH..PATCH TP ONE (03:58)
[2017-06-05] MEDS ORDERED: ONDANSETRON HCL INJ/PF 4 MG/2 ML SDV IV ONE (04:09)
[2017-06-05 07:37] LABS: APPEARANCE,URINE CLEAR; BILIRUBIN,URINE NEGATIVE (NEGATIVE); GLUCOSE, URINE NEGATIVE (NEGATIVE); KETONES,URINE NEGATIVE (NEGATIVE); LEUKOCYTE ESTERASE,URINE MODERATE (NEGATIVE); NITRITE,URINE NEGATIVE (NEGATIVE); PROTEIN,URINE NEGATIVE (NEGATIVE); URINE SPECIFIC GRAVITY 1.018; UROBILINOGEN,URINE NEGATIVE mg/dL (<2.0)
[2017-06-05 08:45] VITALS: BP 131/80
--- NOTE | 2017-06-05 15:21 | EKG REPORT ---
SEVERITY:- NORMAL ECG - SINUS RHYTHM : Confirmed by: Malcolm Lo 05-Jun-2017 15:19:41
== END 2017-06-05 08:45 | disposition home or self-care (01) ==
LOC: ER 21:04
DX: S00.83XA Contusion of other part of head, initial encounter (principal); S00.12XA Contusion of left eyelid and periocular area, initial encounter; W01.0XXA Fall on same level from slipping, tripping and stumbling without subsequent striking against object, initial encounter; Y92.009 Unspecified place in unspecified non-institutional (private) residence as the place of occurrence of the external cause; N39.0 Urinary tract infection, site not specified; N17.9 Acute kidney failure, unspecified; R07.9 Chest pain, unspecified; I10 Essential (primary) hypertension; I25.10 Atherosclerotic heart disease of native coronary artery without angina pectoris; J44.9 Chronic obstructive pulmonary disease, unspecified; I48.91 Unspecified atrial fibrillation; Z79.01 Long term (current) use of anticoagulants; Z86.73 Personal history of transient ischemic attack (TIA), and cerebral infarction without residual deficits; Z88.0 Allergy status to penicillin
CPT/HCPCS: 93005 ×2; 99285; 96374; 36415; 87086; 82553; 82550; 83690; 85025; 85610; 80053; 81001; 84484; 71010; 70450; 72125; 93010 ×2; A9270 ×2; J3490; J2405

== ENCOUNTER 2017-06-30 19:17 | Inpatient (IN) | payer MEDICARE, MEDICAID ==
[2017-06-30] MEDS ORDERED: ASPIRIN 81 MG TABLET, CHEWABLE PO ONE (19:29)
--- NOTE | 2017-06-30 20:08 | RADIOLOGY REPORT (SQ) ---
EXAM DESCRIPTION: CHEST SINGLE VIEW COMPLETED DATE/TIME: 06/30/2017 7:55 pm REASON FOR STUDY: chest pain COMPARISON: 06/05/2017 EXAM PARAMETERS: NUMBER OF VIEWS: One view. TECHNIQUE: Single frontal radiographic view of the chest acquired. RADIATION DOSE: NA LIMITATIONS: None. FINDINGS: LUNGS AND PLEURA: No opacities, masses or pneumothorax. No pleural effusion. MEDIASTINUM AND HILAR STRUCTURES: No masses. Contour normal. HEART AND VASCULAR STRUCTURES: Heart normal in size. Normal vasculature. BONES: No acute findings. HARDWARE: None in the chest. OTHER: No other significant finding. IMPRESSION: NO ACUTE RADIOGRAPHIC FINDING IN THE CHEST. TECHNICAL DOCUMENTATION: JOB ID: [id number] [email or web address]- All Rights Reserved
--- NOTE | 2017-06-30 20:24 | ER Document Report ---
ED General - General Stated Complaint: CHEST PAIN Time Seen by Provider: 06/30/17 19:29 Mode of Arrival: Medic Information source: Patient Notes: 72-year-old female history of 2 previous MIs hypertension, resents with complaints of chest pain midsternal rating all around her shoulder to her left arm. Patient denies any fevers or chills denies any nausea vomiting diarrhea. Patient notes chest pain has since resolved with nitro TRAVEL OUTSIDE OF THE [place] IN LAST 30 DAYS: No - HPI Onset: Just prior to arrival Onset/Duration: Sudden Quality of pain: Pressure Severity: Mild Pain Level: 1 Associated symptoms: Chest pain Exacerbated by: Denies Relieved by: Denies Similar symptoms previously: Yes Recently seen / treated by doctor: No - Related Data Allergies/Adverse Reactions: ciprofloxacin [From Cipro] Adverse Reaction (Verified 04/07/17 03:01) codeine Adverse Reaction (Verified 04/07/17 03:01) morphine Adverse Reaction (Verified 04/07/17 03:01) Penicillins Adverse Reaction (Verified 04/07/17 03:01) promethazine [From Phenergan] Adverse Reaction (Verified 04/07/17 03:01) sulfamethoxazole [From Bactrim] Adverse Reaction (Verified 04/07/17 03:01) trimethoprim [From Bactrim] Adverse Reaction (Verified 04/07/17 03:01) Past Medical History - Social History Smoking Status: Never Smoker Cigarette use (# per day): No Chew tobacco use (# tins/day): No Smoking Education Provided: No Family History: Hypertension - Past Medical History Cardiac Medical History: Reports: Hx Coronary Artery Disease, Hx Heart Attack, Hx Hypercholesterolemia, Hx Hypertension Pulmonary Medical History: Reports: Hx COPD Neurological Medical History: Reports: Hx Cerebrovascular Accident Renal/ Medical History: Denies: Hx Peritoneal Dialysis Review of Systems - Review of Systems Notes: REVIEW OF SYSTEMS: CONSTITUTIONAL : Denies fever, chills, or sweats. Denies recent illness. EENT: Denies eye, ear, throat, or mouth pain or symptoms. Denies nasal or sinus congestion or discharge. Denies throat, tongue, or mouth swelling or difficulty swallowing. CARDIOVASCULAR: Admits to chest pain RESPIRATORY: Denies cough, cold, or chest congestion. Denies shortness of breath, difficulty breathing, or wheezing. GASTROINTESTINAL: Denies abdominal pain or distention. Denies nausea, vomiting , or diarrhea. Denies blood in vomitus, stools, or per rectum. Denies black, tarry stools. Denies constipation. GENITOURINARY: Denies difficulty urinating, painful urination, burning, frequency, blood in urine, or discharge. FEMALE GENITOURINARY: Denies vaginal bleeding, heavy or abnormal periods, irregular periods. Denies vaginal discharge or odor. MUSCULOSKELETAL: Denies back or neck pain or stiffness. Denies joint pain or swelling. SKIN: Denies rash, lesions or sores. HEMATOLOGIC : Denies easy bruising or bleeding. LYMPHATIC: Denies swollen, enlarged glands. NEUROLOGICAL: Denies confusion or altered mental status. Denies passing out or loss of consciousness. Denies dizziness or lightheadedness. Denies headache. Denies weakness or paralysis or loss of use of either side. Denies problems with gait or speech. Denies sensory loss, numbness, or tingling. Denies seizures. PSYCHIATRIC: Denies anxiety or stress. Denies depression, suicidal ideation, or homicidal ideation. ALL OTHER SYSTEMS REVIEWED AND NEGATIVE. PHYSICAL EXAMINATION: GENERAL: Well-appearing, well-nourished and in no acute distress. HEAD: Atraumatic, normocephalic. EYES: Pupils equal round and reactive to light, extraocular movements intact, conjunctiva are normal. ENT: Nares patent, oropharynx clear without exudates. Moist mucous membranes. NECK: Normal range of motion, supple without lymphadenopathy LUNGS: Breath sounds clear to auscultation bilaterally and equal. No wheezes rales or rhonchi. HEART: Regular rate and rhythm without murmurs ABDOMEN: Soft, nontender, nondistended abdomen. No guarding, no rebound. No masses appreciated. Female : deferred Musculoskeletal: Normal range of motion, no pitting or edema. No cyanosis. NEUROLOGICAL: Cranial nerves grossly intact. Normal speech, normal gait. Normal sensory, motor exams PSYCH: Normal mood, normal affect. SKIN: Warm, Dry, normal turgor, no rashes or lesions noted. Dictation was performed using [employer] voice recognition software Physical Exam - Vital signs Vitals: Resp Pulse Ox 30 H 87 L 06/30/17 19:26 06/30/17 19:26 Course - Re-evaluation Re-evalutation: 06/30/17 20:24 Lab work pending at this time patient will be admitted for observation for ACS rule out - Vital Signs Vital signs: Temp Pulse Resp BP Pulse Ox 21 H 122/65 95 07/01/17 00:00 06/30/17 22:00 07/01/17 00:00 - Laboratory Result Diagrams: 06/30/17 21:02 06/30/17 21:02 Laboratory results interpreted by me: 06/30/17 21:02 Est GFR ( Amer) 53 L Est GFR (Non-Af Amer) 43 L Alkaline Phosphatase 140 H Creatine Kinase < 20 L - Diagnostic Test Radiology reviewed: Image reviewed, Reports reviewed - EKG Interpretation by Me EKG shows normal: Sinus rhythm, [place], Intervals, QRS Complexes Discharge - Discharge Clinical Impression: CVA, old, dysarthria, CKD (chronic kidney disease), stage III, Chronic diastolic heart failure Chest pain Qualifiers: Chest pain type: unspecified Qualified Code(s): R07.9 - Chest pain, unspecified Condition: Stable Disposition: ADMITTED OBSERVATION Admitting Provider: Hospitalist Unit Admitted: Telemetry
[2017-06-30 21:12] LABS: ABSOLUTE BASOPHILS # (AUTO) 0.1 10^3/uL (0.0-0.2); ABSOLUTE EOSINOPHILS # (AUTO) 0.1 10^3/uL (0.0-0.6); ABSOLUTE MONOCYTES (AUTO) 0.8 10^3/uL (0.1-1.4); BASOPHILS % (AUTO) 0.9 % (0-2); EOSINOPHILS % (AUTO) 1.7 % (0-6); HEMATOCRIT 36.2 % (36.0-47.0); HEMOGLOBIN 12.2 g/dL (12.0-15.5); HGB HCT DIFFERENCE 0.4; MEAN CORPUSCULAR HEMOGLOBIN 32.7 pg (27.0-33.4); MEAN CORPUSCULAR HGB CONC 33.8 g/dL (32.0-36.0); MEAN CORPUSCULAR VOLUME 97 fl (80-97); RED BLOOD COUNT 3.74 10^6/uL (3.72-5.28); RED CELL DISTRIBUTION WIDTH 12.9 % (11.5-14.0); SEGMENTED NEUTROPHILS % (AUTO) 56.4 % (42-78)
[2017-06-30 21:31] LABS: ALANINE AMINOTRANSFERASE 32 U/L (9-52); ALBUMIN 3.8 g/dL (3.5-5.0); ALKALINE PHOSPHATASE 140 U/L (38-126); ANION GAP 11 (5-19); ASPARTATE AMINO TRANSFERASE 24 U/L (14-36); BILIRUBIN,DIRECT 0.3 mg/dL (0.0-0.4); BILIRUBIN,TOTAL 0.6 mg/dL (0.2-1.3); BLOOD UREA NITROGEN 14 mg/dL (7-20); CALCIUM 9.2 mg/dL (8.4-10.2); CARBON DIOXIDE 30 mmol/L (22-30); CHLORIDE 103 mmol/L (98-107); CREATININE RESULT 1.21 mg/dL (0.52-1.25); GLUCOSE 98 mg/dL (75-110); POTASSIUM 3.6 mmol/L (3.6-5.0); SODIUM 144.4 mmol/L (137-145); TOTAL PROTEIN 6.9 g/dL (6.3-8.2)
[2017-06-30 21:37] LABS: CREATINE KINASE < 20 U/L (30-135)
[2017-06-30 21:40] LABS: CREATINE KINASE MB 0.23 ng/mL (<4.55)
[2017-06-30 21:45] LABS: TROPONIN I < 0.012 ng/mL
[2017-06-30] MEDS ORDERED: ALBUTEROL SULFATE HFA (90 MCG/PUFF) 8 GM MDI (1 MDI/ER DISP) IH PRN (22:18)
[2017-06-30] MEDS ORDERED: LACTULOSE SYRUP 20 GM/30 ML UDCUP PO ONE (22:18)
[2017-06-30] MEDS ORDERED: ACETAMINOPHEN 325 MG TABLET PO PRN (22:19)
[2017-06-30] MEDS ORDERED: MAGNESIUM HYDROXIDE SUSP 30 ML UDCUP PO PRN (22:19)
[2017-06-30] MEDS ORDERED: IPRATROPIUM/ALBUTEROL 0.5-2.5 MG/3 ML AMPUL NEB PRN (22:19)
[2017-06-30] MEDS ORDERED: MAG HYDROX/AL HYDROX/SIMETH SUSP 30 ML UDCUP PO PRN (22:19)
--- NOTE | 2017-06-30 22:57 | RADIOLOGY REPORT (SQ) ---
EXAM DESCRIPTION: ABDOMEN 2 VIEWS COMPLETED DATE/TIME: 06/30/2017 10:49 pm REASON FOR STUDY: abd pain COMPARISON: 04/11/2017 NUMBER OF VIEWS: Two views. TECHNIQUE: Supine and erect/decubitus radiographic images of the abdomen acquired. LIMITATIONS: None. FINDINGS: FREE AIR: None. No abnormal gas collections. LUNG BASES: Clear. BOWEL GAS PATTERN: Nonobstructive pattern. No dilated loops or air fluid levels. CALCIFICATIONS: No suspicious calcifications. SOFT TISSUES: No gross mass or suggestion of organomegaly. HARDWARE: Cholecystectomy clips are seen within the right upper quadrant. BONES: No acute fracture. No worrisome bone lesions. OTHER: No other significant finding. IMPRESSION: NO RADIOGRAPHIC EVIDENCE FOR ACUTE ABDOMINAL DISEASE. TECHNICAL DOCUMENTATION: JOB ID: [id number] [employer]- All Rights Reserved
--- NOTE | 2017-07-01 03:47 | PDOC H&P ---
History of Present Illness Admission Date/PCP: 06/30/17 22:05 Patient complains of: Chest and abdominal pain History of Present Illness: LISA FRANCISCO is a 72 year old female with a past medical history of coronary artery disease, COPD, CVA approximately 6 months ago who presents with 24 hours chest pain which began at rest and is 2 out of 5 intensity reproducible with palpation to the chest wall. She also has a second pain originating originating in the abdomen which is associated with nausea without vomiting and is aching in quality radiates to the left lower quadrant. She admits pain exacerbated by movement and alleviated by rest. She admits negative cardiac stress test just 3 weeks ago denies recent change in medications. Past Medical History Cardiac Medical History: Reports: Coronary Artery Disease, Myocardial Infarction , Hyperlipidema, Hypertension Pulmonary Medical History: Reports: Chronic Obstructive Pulmonary Disease (COPD) Social History Smoking Status: Former Smoker Cigarettes Packs Per Day: 2 Number of Years Smokin Last Time Smoked: jul 13, 2010 Frequency of Alcohol Use: None Hx Recreational Drug Use: No Drugs: None Hx Prescription Drug Abuse: No - Advance Directive Resuscitation Status: Full Code Family History Family History: Hypertension Parental Family History Reviewed: Yes Children Family History Reviewed: Yes Sibling(s) Family History Reviewed.: Yes Medication/Allergy Home Medications: Albuterol Sulfate [Ventolin Hfa] 90 mcg IH PRN PRN 06/04/17 Amlodipine Besylate 5 mg PO DAILY 06/04/17 Apixaban [Eliquis 5 mg Tablet] 5 mg PO DAILY 06/04/17 Atorvastatin Calcium 20 mg PO DAILY 06/04/17 Budesonide/Formoterol Fumarate [Symbicort 160-4.5 Mcg Inhaler] 160 mcg IH PRN PRN 06/04/17 Furosemide [Lasix] 40 mg PO DAILY 06/04/17 Gabapentin 300 mg PO DAILY 06/04/17 Magnesium Oxide [Magnesium] 400 mg PO DAILY 06/04/17 Metoprolol Succinate 25 mg PO DAILY 06/04/17 Ranolazine [Ranexa] 500 mg PO DAILY 06/04/17 Cephalexin Monohydrate [Keflex 500 mg Capsule] 500 mg PO Q6H 5 Days capsule Allergies/Adverse Reactions: diphenhydramine [From Benadryl] Allergy (Verified 07/01/17 01:52) ciprofloxacin [From Cipro] Adverse Reaction (Verified 04/07/17 03:01) codeine Adverse Reaction (Verified 04/07/17 03:01) Penicillins Adverse Reaction (Verified 04/07/17 03:01) promethazine [From Phenergan] Adverse Reaction (Verified 04/07/17 03:01) sulfamethoxazole [From Bactrim] Adverse Reaction (Verified 07/01/17 01:52) trimethoprim [From Bactrim] Adverse Reaction (Verified 07/01/17 01:52) Review of Systems Constitutional: PRESENT: as per HPI, fatigue Eyes: ABSENT: visual disturbances Ears: ABSENT: hearing changes Cardiovascular: ABSENT: chest pain, dyspnea on exertion, edema, orthropnea, palpitations Respiratory: ABSENT: cough, hemoptysis Gastrointestinal: PRESENT: abdominal pain, bloating, constipation, diarrhea, nausea. ABSENT: vomiting Genitourinary: ABSENT: dysuria, hematuria Musculoskeletal: ABSENT: joint swelling Integumentary: ABSENT: rash, wounds Neurological: ABSENT: abnormal gait, abnormal speech, confusion, dizziness, focal weakness, syncope Psychiatric: ABSENT: anxiety, depression, homidical ideation, suicidal ideation Endocrine: ABSENT: cold intolerance, heat intolerance, polydipsia, polyuria Hematologic/Lymphatic: ABSENT: easy bleeding, easy bruising Physical Exam Vital Signs: Temp Pulse Resp BP Pulse Ox 97.9 F 69 12 131/58 H 94 07/01/17 01:33 07/01/17 01:33 07/01/17 01:33 07/01/17 01:41 07/01/17 01:33 Intake & Output 06/29/17 06/30/17 07/01/17 11:59 11:59 11:59 Weight 86.1 kg General appearance: PRESENT: no acute distress, well-developed, well-nourished Head exam: PRESENT: atraumatic, normocephalic Eye exam: PRESENT: conjunctiva pink, EOMI, PERRLA. ABSENT: scleral icterus Ear exam: PRESENT: normal external ear exam Mouth exam: PRESENT: moist, tongue midline Neck exam: ABSENT: carotid bruit, JVD, lymphadenopathy, thyromegaly Respiratory exam: PRESENT: clear to auscultation [place]. ABSENT: rales, rhonchi, wheezes Cardiovascular exam: PRESENT: RRR. ABSENT: diastolic murmur, rubs, systolic murmur Pulses: PRESENT: normal dorsalis pedis pul Vascular exam: PRESENT: normal capillary refill GI/Abdominal exam: PRESENT: distended, hypoactive bowel sounds, normal bowel sounds, soft, tenderness - Diffuse without guarding. ABSENT: guarding, mass, organolmegaly, rebound Rectal exam: PRESENT: deferred Extremities exam: PRESENT: full ROM. ABSENT: calf tenderness, clubbing, pedal edema Neurological exam: PRESENT: alert, awake, oriented to person, oriented to place , oriented to time, oriented to situation, CN II-XII grossly intact. ABSENT: motor sensory deficit Psychiatric exam: PRESENT: appropriate affect, normal mood. ABSENT: homicidal ideation, suicidal ideation Skin exam: PRESENT: dry, intact, warm. ABSENT: cyanosis, rash Results Impressions: Chest X-Ray 06/30/17 19:29 IMPRESSION: NO ACUTE RADIOGRAPHIC FINDING IN THE CHEST. Abdomen X-Ray 06/30/17 22:18 IMPRESSION: NO RADIOGRAPHIC EVIDENCE FOR ACUTE ABDOMINAL DISEASE. Assessment & Plan - Diagnosis (1) Chest pain Qualifiers: Chest pain type: unspecified Qualified Code(s): R07.9 - Chest pain, unspecified Is this a current diagnosis for this admission?: Yes Plan: Atypical chest pain though the patient's pain is atypical there are multiple risk factors for coronary artery disease and subsequently will observe and evaluation of acute coronary syndrome versus coronary artery disease with anginal equivalents. Cardiac monitoring blood pressure Q6 hours ,TSH, lipid profile, serial cardiac enzymes and obtain results of recent Cardiolite stress test. Given reproducible chest wall pain she receives symptomatic management with avoidance of activity reproducing pain. (2) Coronary artery disease Qualifiers: Coronary Disease-Associated Artery/Lesion type: [place] artery Associated angina: angina presence unspecified Is this a current diagnosis for this admission?: Yes Plan: Serial cardiac enzymes. Nitroglycerin (3) CKD (chronic kidney disease), stage III Is this a current diagnosis for this admission?: Yes Plan: Avoid nephrotoxic meds and doses (4) Abdominal pain Is this a current diagnosis for this admission?: Yes Plan: Abdominal series reveals extensive gas pattern without obstruction. Supportive management clear liquid trial - Time Time Spent: 30 to 50 Minutes
[2017-07-01 03:55] LABS: ANION GAP 11 (5-19); BLOOD UREA NITROGEN 14 mg/dL (7-20); CALCIUM 9.2 mg/dL (8.4-10.2); CARBON DIOXIDE 29 mmol/L (22-30); CHLORIDE 106 mmol/L (98-107); CREATINE KINASE 25 U/L (30-135); CREATININE RESULT 1.23 mg/dL (0.52-1.25); GLUCOSE 110 mg/dL (75-110); POTASSIUM 3.8 mmol/L (3.6-5.0); SODIUM 145.7 mmol/L (137-145)
[2017-07-01 04:10] LABS: CREATINE KINASE MB < 0.22 ng/mL (<4.55); TROPONIN I < 0.012 ng/mL
[2017-07-01] MEDS ORDERED: HEPARIN SOD (PORCINE) 5,000 UNIT/ML 1 ML SYRINGE SUBCUT SCH (06:00)
[2017-07-01] MEDS ORDERED: FUROSEMIDE 40 MG TABLET PO SCH (10:00)
[2017-07-01 11:02] LABS: CREATINE KINASE MB < 0.22 ng/mL (<4.55); TROPONIN I < 0.012 ng/mL
[2017-07-01] MEDS ORDERED: ONDANSETRON HCL INJ/PF 4 MG/2 ML SDV IV PRN (11:32)
[2017-07-01] MEDS: MAGNESIUM OXIDE 400 MG TABLET PO SCH (11:36)
[2017-07-01] MEDS: RANOLAZINE 500 MG TAB.SR.12H PO SCH (11:36)
[2017-07-01] MEDS: METOPROLOL SUCCINATE 25 MG TAB.SR.24H PO SCH (11:37)
[2017-07-01] MEDS: GABAPENTIN 300 MG CAPSULE PO SCH (11:37)
[2017-07-01] MEDS: APIXABAN 5 MG TABLET PO SCH (11:38)
[2017-07-01] MEDS: AMLODIPINE BESYLATE 5 MG TABLET PO SCH (11:44)
--- NOTE | 2017-07-01 14:48 | PDOC PROGRESS REPORT ---
Subjective Progress Note for:: 07/01/17 Subjective:: Patient is seen on morning rounds for follow-up of atypical chest pain and abdominal pain. Patient reports that her chest pain has resolved, and further denies palpitations, dyspnea, and orthopnea. She does report continued intense generalized abdominal pain that is most severe in the left lower quadrant. She reports that the pain is exacerbated by movement and often precipitate a bowel movement. She does report multiple episodes of diarrheal bowel incontinence overnight. She denies nausea and vomiting. She does state that she gets frequent loose stools which treats with pepto-bismol at home, but they are never associated with abdominal pain. She requests assistance to the commode and otherwise has no new concerns this morning. Physical Exam Vital Signs: Temp Pulse Resp BP Pulse Ox 98.1 F 73 20 138/59 H 96 07/01/17 11:24 07/01/17 11:24 07/01/17 11:24 07/01/17 11:24 07/01/17 11:24 Intake & Output 06/30/17 07/01/17 07/02/17 06:59 06:59 06:59 Intake Total 120 Output Total 0 Balance 120 Weight 86.1 kg General appearance: PRESENT: disheveled, mild distress, obese, well-developed, well-nourished Head exam: PRESENT: atraumatic, normocephalic Eye exam: PRESENT: conjunctiva pink, EOMI, PERRLA. ABSENT: scleral icterus Ear exam: PRESENT: normal external ear exam Mouth exam: PRESENT: moist, tongue midline Neck exam: ABSENT: carotid bruit, JVD, lymphadenopathy, thyromegaly Respiratory exam: PRESENT: clear to auscultation [place], symmetrical, unlabored. ABSENT: rales, rhonchi, wheezes Cardiovascular exam: PRESENT: RRR, +S1, +S2. ABSENT: diastolic murmur, rubs, systolic murmur Pulses: PRESENT: normal dorsalis pedis pul Vascular exam: PRESENT: normal capillary refill GI/Abdominal exam: PRESENT: guarding, hyperactive bowel sounds, soft, tenderness - diffuse. ABSENT: ascites, distended, firm, mass, organolmegaly, rebound Rectal exam: PRESENT: deferred Extremities exam: PRESENT: full ROM. ABSENT: calf tenderness, clubbing, pedal edema Neurological exam: PRESENT: alert, awake, oriented to person, oriented to place , oriented to time, oriented to situation, CN II-XII grossly intact. ABSENT: motor sensory deficit Psychiatric exam: PRESENT: appropriate affect, normal mood. ABSENT: homicidal ideation, suicidal ideation Skin exam: PRESENT: dry, intact, warm. ABSENT: cyanosis, rash Results Laboratory Results: 07/01/17 03:12 07/01/17 03:12 Sodium 145.7 H Potassium 3.8 Chloride 106 Carbon Dioxide 29 Anion Gap 11 BUN 14 Creatinine 1.23 Est GFR ( Amer) 52 L Est GFR (Non-Af Amer) 43 L Glucose 110 Calcium 9.2 07/01/17 07/01/17 07/01/17 03:12 03:12 10:18 Creatine Kinase 25 L < 20 L CK-MB (CK-2) < 0.22 Troponin I < 0.012 07/01/17 10:18 Creatine Kinase CK-MB (CK-2) < 0.22 Troponin I < 0.012 Impressions: Chest X-Ray 06/30/17 19:29 IMPRESSION: NO ACUTE RADIOGRAPHIC FINDING IN THE CHEST. Abdomen X-Ray 06/30/17 22:18 IMPRESSION: NO RADIOGRAPHIC EVIDENCE FOR ACUTE ABDOMINAL DISEASE. Assessment & Plan - Diagnosis (1) Abdominal pain Qualifiers: Abdominal location: left lower quadrant Qualified Code(s): R10.32 - Left lower quadrant pain Is this a current diagnosis for this admission?: Yes Plan: Abdominal series revealed extensive gas pattern without obstruction. Differentials include illeus, obstruction, gastroenteritis and less likely cholelithiasis. Hepatitis and Pancreatitis have been ruled out with normal lipase and LFTs. She is supported with gentle IV fluids, clear liquid diet, Bentyl for pain, and Zofran for nausea. (2) Chest pain Qualifiers: Chest pain type: unspecified Qualified Code(s): R07.9 - Chest pain, unspecified Is this a current diagnosis for this admission?: Yes Plan: Atypical chest pain, though the patient has multiple risk factors for coronary artery disease. She does report a recent negative stress test as an outpatient. EKG is reviewed to be normal and serial troponins are negative. Given the grossly normal laboratory workup, negative outpatient stress testing per patient, reproducible nature of chest pain, and associated abdominal pain, I have a low suspicion of this being a cardiac event. She will be continued on her home medications of Ranexa, amlodipine, metoprolol , furosemide, and Eliquis. Patient will remain on telemetry monitoring. (3) Coronary artery disease Qualifiers: Coronary Disease-Associated Artery/Lesion type: [place] artery Associated angina: angina presence unspecified Is this a current diagnosis for this admission?: Yes Plan: As above. (4) CKD (chronic kidney disease), stage III Is this a current diagnosis for this admission?: Yes Plan: Will avoid nephrotoxic medications. - Time Time Spent with patient: 25-34 minutes Medications reviewed and adjusted accordingly: Yes
[2017-07-01] MEDS: NORMAL SALINE 1000 ML 1,000 ML IV PRN (16:43)
[2017-07-01] MEDS ORDERED: ATORVASTATIN CALCIUM 20 MG TABLET PO SCH (17:00)
[2017-07-01 17:16] LABS: CREATINE KINASE MB < 0.22 ng/mL (<4.55); TROPONIN I < 0.012 ng/mL
[2017-07-01] MEDS: DICYCLOMINE HCL 10 MG CAPSULE PO PRN (19:22)
[2017-07-01] MEDS: ATORVASTATIN CALCIUM 20 MG TABLET PO SCH (21:27)
--- NOTE | 2017-07-02 03:37 | Physician Advisory Note ---
Physician Advisor ProgressNote .: Pursuant to the plan for [facility], I have reviewed the medical record for this patient. Physician Advisor Statement: Please consider documenting, if you agree: 1. "Chronic Hypoxemic Respiratory Failure requiring 2L O2 at baseline" 2. "Acute Hypernatremia, suspect due to " 3. STatus: appropriate for change to Inpt status as of 07/01 PM. 4. Most likely cause of acute CP. Status discussion: 72yo Medicare pt w/COPD requiring O2 at baseline, CAD, HLD, among other dx.s, appropriately brought in initially as OUtpt Obs for CP & abd pain. After 1 MN of hospital eval & care, CP resolved & not felt to be cardiac- caused, but "continued intense abd pain, exacerbated by movement", + diarrhea, mild distress, guarding on exam w/tenderness & hyperactive bowel sounds, acute development of hypernatremia. Continuing to need IVF, w/prn Bentyl/Zofran, clears po. Therefore, needing 2nd MN of hospital care for clinical reasons that are nicely documented. CK
--- NOTE | 2017-07-02 06:04 | EKG REPORT ---
SEVERITY:- NORMAL ECG - SINUS RHYTHM : Confirmed by: Lis Fletcher MD 02-Jul-2017 06:02:40
[2017-07-02 06:54] LABS: HEMOGLOBIN 12.5 g/dL (12.0-15.5); HGB HCT DIFFERENCE 0.5; MEAN CORPUSCULAR HEMOGLOBIN 33.1 pg (27.0-33.4); MEAN CORPUSCULAR HGB CONC 33.9 g/dL (32.0-36.0); MEAN CORPUSCULAR VOLUME 98 fl (80-97); RED BLOOD COUNT 3.79 10^6/uL (3.72-5.28); RED CELL DISTRIBUTION WIDTH 12.7 % (11.5-14.0); WHITE BLOOD COUNT 6.2 10^3/uL (4.0-10.5)
[2017-07-02 07:22] LABS: ANION GAP 12 (5-19); BLOOD UREA NITROGEN 12 mg/dL (7-20); CARBON DIOXIDE 27 mmol/L (22-30); CHLORIDE 108 mmol/L (98-107); CHOLESTEROL 174.77 mg/dL (0-200); CREATININE RESULT 1.04 mg/dL (0.52-1.25); Direct HDL 45 mg/dL (>40); GLUCOSE 105 mg/dL (75-110); SODIUM 147.3 mmol/L (137-145); TRIGLYCERIDES 141 mg/dL (<150)
[2017-07-02 07:33] LABS: DIRECT LDL 87 mg/dL (<100)
[2017-07-02] MEDS: DICYCLOMINE HCL 10 MG CAPSULE PO PRN (08:43)
[2017-07-02] MEDS: AMLODIPINE BESYLATE 5 MG TABLET PO SCH (10:51)
[2017-07-02] MEDS: METOPROLOL SUCCINATE 25 MG TAB.SR.24H PO SCH (10:51)
[2017-07-02] MEDS: GABAPENTIN 300 MG CAPSULE PO SCH (10:52)
[2017-07-02] MEDS: RANOLAZINE 500 MG TAB.SR.12H PO SCH (10:52)
[2017-07-02] MEDS: APIXABAN 5 MG TABLET PO SCH (10:52)
[2017-07-02] MEDS: MAGNESIUM OXIDE 400 MG TABLET PO SCH (10:52)
[2017-07-02] MEDS ORDERED: TRAMADOL HCL 50 MG TABLET PO PRN (11:45)
[2017-07-02] MEDS ORDERED: KETOROLAC TROMETHAMINE INJ/PF 30 MG/1 ML SDV IV ONE (12:00)
[2017-07-02] MEDS: NORMAL SALINE 1000 ML 1,000 ML IV PRN ×2 (13:40→22:16)
--- NOTE | 2017-07-02 14:32 | PDOC PROGRESS REPORT ---
Subjective Progress Note for:: 07/02/17 Subjective:: Patient is seen on morning rounds for follow-up of atypical chest pain and abdominal pain. Patient reports that her chest pain has resolved, and further denies palpitations, dyspnea, and orthopnea. She does reports continued intense generalized abdominal pain that is most severe in the left lower quadrant. She reports that the pain is exacerbated by movement and often precipitates a bowel movement. She continues to have large volume, watery, bowel movements. She denies nausea and vomiting. She is also complaining of a generalized, tension headache. She reports that she gets these headaches frequently at home and that they typically respond well to Tylenol. She has no other questions or concerns today. Physical Exam Vital Signs: Temp Pulse Resp BP Pulse Ox 97.9 F 71 14 137/61 H 96 07/02/17 11:12 07/02/17 11:12 07/02/17 11:12 07/02/17 11:12 07/02/17 11:12 Intake & Output 07/01/17 07/02/17 07/03/17 06:59 06:59 06:59 Intake Total 921 Balance 921 General appearance: PRESENT: no acute distress, well-developed, well-nourished Head exam: PRESENT: atraumatic, normocephalic Eye exam: PRESENT: conjunctiva pink, EOMI, PERRLA. ABSENT: scleral icterus Ear exam: PRESENT: normal external ear exam Mouth exam: PRESENT: moist, tongue midline Neck exam: ABSENT: carotid bruit, JVD, lymphadenopathy, thyromegaly Respiratory exam: PRESENT: clear to auscultation edwin. ABSENT: rales, rhonchi, wheezes Cardiovascular exam: PRESENT: RRR. ABSENT: diastolic murmur, rubs, systolic murmur Pulses: PRESENT: normal dorsalis pedis pul Vascular exam: PRESENT: normal capillary refill GI/Abdominal exam: PRESENT: distended - Bloated, hyperactive bowel sounds, soft , tenderness - Diffuse, more intense to the lower right and lower left quadrants. No rebound tenderness.. ABSENT: guarding, mass, organolmegaly, rebound Rectal exam: PRESENT: deferred Extremities exam: PRESENT: full ROM. ABSENT: calf tenderness, clubbing, pedal edema Neurological exam: PRESENT: alert, awake, oriented to person, oriented to place , oriented to time, oriented to situation, CN II-XII grossly intact. ABSENT: motor sensory deficit Psychiatric exam: PRESENT: appropriate affect, normal mood. ABSENT: homicidal ideation, suicidal ideation Skin exam: PRESENT: dry, intact, warm. ABSENT: cyanosis, rash Results Impressions: Chest X-Ray 06/30/17 19:29 IMPRESSION: NO ACUTE RADIOGRAPHIC FINDING IN THE CHEST. Abdomen X-Ray 06/30/17 22:18 IMPRESSION: NO RADIOGRAPHIC EVIDENCE FOR ACUTE ABDOMINAL DISEASE. Assessment & Plan - Diagnosis (1) Abdominal pain Qualifiers: Abdominal location: left lower quadrant Qualified Code(s): R10.32 - Left lower quadrant pain Is this a current diagnosis for this admission?: Yes Plan: Abdominal series revealed extensive gas pattern without obstruction. Differentials include illeus, obstruction, gastroenteritis and less likely cholelithiasis. Hepatitis and Pancreatitis have been ruled out with normal lipase and LFTs. Patient continues to have abdominal distention, severe abdominal pain, and incontinent of diarrheal bowel movements. Expended differentials include C. difficile, Dale virus, and diverticulitis or colitis. She is supported with gentle IV fluids, clear liquid diet, Bentyl and Tramadol as needed for pain, and Zofran for nausea. Will obtain stool sample for C. difficile, stool culture, O&P. If C. difficile is negative, will pursue CT of the abdomen. (2) Chest pain Qualifiers: Chest pain type: unspecified Qualified Code(s): R07.9 - Chest pain, unspecified Is this a current diagnosis for this admission?: Yes Plan: Resolved. I believe that her chest pain was actually referred abdominal pain as that is now her primary problem. Chest pain workup essentially normal: Patient recently had a negative stress test completed as an outpatient. EKG was reviewed to be normal. Serial troponins were negative. Given the grossly normal laboratory workup, negative outpatient stress testing per patient, reproducible nature of chest pain, and associated abdominal pain, I have a low suspicion of this being a cardiac event. She will be continued on her home medications of Ranexa, amlodipine, metoprolol , furosemide, and Eliquis. Patient will remain on telemetry monitoring. (3) Coronary artery disease Qualifiers: Coronary Disease-Associated Artery/Lesion type: minto artery Associated angina: angina presence unspecified Is this a current diagnosis for this admission?: Yes Plan: As above. (4) Chronic respiratory failure with hypoxia Plan: Patient has chronic respiratory failure with hypoxia the use of home O2. She has maintain oxygen saturations while at rest on 1-2 L supplemental oxygen via nasal cannula. (5) CKD (chronic kidney disease), stage III Is this a current diagnosis for this admission?: Yes Plan: Will avoid nephrotoxic medications. (6) Hypernatremia Is this a current diagnosis for this admission?: Yes Plan: Likely secondary to dehydration in setting of copious diarrhea. She is receiving IV fluids. Continue to monitor. - Time Time Spent with patient: 25-34 minutes Medications reviewed and adjusted accordingly: Yes Anticipated discharge: Home Within: within 48 hours - Inpatient Certification Based on my medical assessment, after consideration of the patient's comorbidities, presenting symptoms, or acuity I expect that the services needed warrant INPATIENT care.: Yes I certify that my determination is in accordance with my understanding of Medicare's requirements for reasonable and necessary INPATIENT services [42 CFR 412.3e].: Yes Medical Necessity: Need Close Monitoring Due to Risk of Patient Decompensation
[2017-07-02] MEDS: ATORVASTATIN CALCIUM 20 MG TABLET PO SCH (21:26)
[2017-07-03 05:45] LABS: ANION GAP 10 (5-19); BLOOD UREA NITROGEN 8 mg/dL (7-20); CARBON DIOXIDE 26 mmol/L (22-30); CHLORIDE 110 mmol/L (98-107); CREATININE RESULT 0.83 mg/dL (0.52-1.25); GLUCOSE 110 mg/dL (75-110); POTASSIUM 3.8 mmol/L (3.6-5.0)
[2017-07-03] MEDS: NORMAL SALINE 1000 ML 1,000 ML IV PRN (06:16)
[2017-07-03] MEDS ORDERED: ALBUTEROL SULFATE HFA (90 MCG/PUFF) 200 PUFF/8.5 GM MDI IH PRN (09:46)
[2017-07-03] MEDS: FUROSEMIDE 20 MG TABLET PO SCH (10:11)
[2017-07-03] MEDS: APIXABAN 5 MG TABLET PO SCH ×3 (10:11→22:09)
[2017-07-03] MEDS ORDERED: RANOLAZINE 500 MG TAB.SR.12H PO ONE (11:00)
[2017-07-03] MEDS ORDERED: MAGNESIUM OXIDE 400 MG TABLET PO ONE (11:00)
[2017-07-03] MEDS ORDERED: AMLODIPINE BESYLATE 5 MG TABLET PO ONE (11:00)
[2017-07-03] MEDS ORDERED: POTASSIUM CHLORIDE 10 MEQ TABLET.SA PO ONE (11:00)
[2017-07-03] MEDS ORDERED: LACTOBACILLUS ACIDOPHILUS 250 MG TAB PO ONE (11:00)
[2017-07-03] MEDS ORDERED: METOPROLOL SUCCINATE 25 MG TAB.SR.24H PO ONE (11:00)
--- NOTE | 2017-07-03 11:28 | DISCHARGE SUMMARY E ---
Discharge Summary NAME: LISA FRANCISCO : 1945 AGE: 72Y ADMITTED: 07/02/2017 DISCHARGED: 07/03/2017 CODE STATUS: FULL CODE. PRIMARY CARE PROVIDER: Ofelia Navarrete DO DISCHARGE DIAGNOSES: Include: 1. ACUTE VIRAL GASTROENTERITIS. 2. ABDOMINAL AND CHEST PAIN SECONDARY TO NUMBER 1 WITH SPONTANEOUS RESOLUTION. 3. KNOWN CORONARY ARTERY DISEASE. 4. ACUTE ON CHRONIC HYPOXEMIC RESPIRATORY FAILURE. 5. CHRONIC KIDNEY DISEASE, STAGE 3. 6. HYPERNATREMIA. DISCHARGE MEDICATIONS: Include: 1. ProAir HFA 1 to 2 puffs inhalation q.6 h. p.r.n. 2. Xanax 1 mg p.o. q.12 h. p.r.n. 3. Norvasc 5 mg p.o. daily. 4. Eliquis 5 mg p.o. q.12 h. 5. Lipitor 20 mg p.o. every evening. 6. Align 4 mg p.o. b.i.d. 7. Symbicort HFA 2 puffs inhalation q.12 h. 8. Lasix 40 mg p.o. b.i.d. 9. Neurontin 300 mg p.o. q.8 h. 10. Magnesium oxide 400 mg p.o. daily. 11. Toprol-XL 25 mg p.o. daily. 12. Protonix 40 mg p.o. daily. 13. Potassium chloride 10 mEq p.o. q.12 h. 14. Ranexa 500 mg p.o. q.12 h. DIET: Heart healthy as tolerated. ACTIVITY: As tolerated. HISTORY OF PRESENT ILLNESS: The patient is a 72-year-old female with a past medical history of oxygen-dependent COPD and known cerebral vascular disease. The patient presented to the emergency department with a chief complaint of 24 hours of 5/10 reproducible chest pain and palpitations of the chest wall. The patient also stated that she had a second pain in her abdomen which was associated with nausea, vomiting, and aching in quality. The patient's pain was exacerbated by movement and rest. The patient had a negative cardiac stress test 3 weeks ago and denies any recent change of her medications. The patient was referred to the hospitalist for admission and management. HOSPITAL COURSE: The patient was admitted to Continuous Telemetry Unit. Serial cardiac enzymes were obtained; all of which were nonsuggestive. The patient was gently hydrated and the patient was noted to have a few loose diarrhea stools. Stool studies have been sent, which have been found to be unremarkable. The patient states that her symptoms of pain have overall completely resolved. The patient is able to ambulate to the commode without issue, and the patient feels ready for discharge. DIAGNOSTICS: Lab values are follow: Hematology obtained on 07/02/2017: WBCs are 6.2, hemoglobin is 12.5, hematocrit is 37.0. Platelet count is 196,000. Chemistry obtained on 07/03/2017: Sodium is 146, potassium 3.8, chloride is 110, carbon dioxide 26, BUN 8, creatinine is 0.83, glucose 110, calcium is 9.0. Triglycerides are 141, cholesterol 174, LDL 87, VLDL is 28, HDL is 45. Lipase is 47. Total bilirubin is 0.6, AST 24, ALT 32, alk phos 140. CK is less than 20. Serology obtained 07/03/2017: C-diff toxin is negative. Stool culture obtained on 07/03/2017 reveals no growth. O and P obtained 07/03/2017 is still pending. Chest x-ray obtained on 06/30/2017 reveals no acute radiographic finding of the chest. Abdominal x-ray obtained on 06/30/2017 reveals no acute radiographic evidence of the abdomen. PHYSICAL EXAMINATION: GENERAL: On examination, the patient is a well-developed, well-nourished, 72-year-old female who is awake, alert, and oriented to person, place, time, and situation. She is verbal, conversational, and does not appear to be in any acute distress. VITAL SIGNS: As follows: Temperature is 98.1, pulse 70, respirations 16, blood pressure 129/65, oxygen saturation is 93% on 1 L nasal cannula. SKIN: Is warm and dry. No rashes. Not diaphoretic. HEENT: Pupils equal, round, reactive to light and accommodation. Conjunctivae are pink. There is no JVP. CARDIOVASCULAR: Heart is regular. There is no murmur or rub. CHEST: Clear, symmetrical, unlabored. ABDOMEN: Soft, nontender, nondistended. Bowel sounds are present. BACK: No CVA tenderness, sacral edema. EXTREMITIES: No clubbing, cyanosis, edema. PSYCHIATRIC: Appropriate affect. Pleasant mood. DISCHARGE PLANNING: The patient is advised to followup with primary care provider within 1-2 weeks for hospital followup. TIME SPENT ON THIS DISCHARGE: Including assessment, plan, physical examination, patient education, and review of previous and current records is 25 minutes. DICTATING PHYSICIAN: GINNY ALBRIGHT NP [id number] PHY#: [id number] ID: [id number] JOB#: [id number] ACCT: [id number] cc:Teddy MEREDITH NP >
[2017-07-03] MEDS: BUDESONIDE/FORMOTEROL 160-4.5 MCG 60 PUFF/6 GM MDI IH SCH ×2 (11:37→22:09)
[2017-07-03] MEDS: GABAPENTIN 300 MG CAPSULE PO SCH ×2 (15:59→22:09)
[2017-07-03] MEDS: LACTOBACILLUS ACIDOPHILUS 250 MG TAB PO SCH (17:55)
[2017-07-03] MEDS: RANOLAZINE 500 MG TAB.SR.12H PO SCH (22:09)
[2017-07-03] MEDS: ATORVASTATIN CALCIUM 20 MG TABLET PO SCH (22:09)
[2017-07-03] MEDS: POTASSIUM CHLORIDE 10 MEQ TABLET.SA PO SCH (22:09)
[2017-07-04] MEDS: GABAPENTIN 300 MG CAPSULE PO SCH ×3 (05:25→21:10)
[2017-07-04] MEDS ORDERED: LANSOPRAZOLE 30 MG TAB.RAP.DR PO SCH (06:00)
[2017-07-04] MEDS: APIXABAN 5 MG TABLET PO SCH ×2 (09:44→21:09)
[2017-07-04] MEDS: LACTOBACILLUS ACIDOPHILUS 250 MG TAB PO SCH ×2 (09:44→18:08)
[2017-07-04] MEDS: RANOLAZINE 500 MG TAB.SR.12H PO SCH ×2 (09:45→21:10)
[2017-07-04] MEDS: FUROSEMIDE 20 MG TABLET PO SCH (09:45)
[2017-07-04] MEDS: POTASSIUM CHLORIDE 10 MEQ TABLET.SA PO SCH ×2 (09:46→21:09)
[2017-07-04] MEDS: BUDESONIDE/FORMOTEROL 160-4.5 MCG 60 PUFF/6 GM MDI IH SCH ×2 (09:46→21:10)
[2017-07-04] MEDS ORDERED: METOPROLOL SUCCINATE 25 MG TAB.SR.24H PO SCH (10:00)
[2017-07-04] MEDS ORDERED: MAGNESIUM OXIDE 400 MG TABLET PO SCH (10:00)
[2017-07-04] MEDS ORDERED: AMLODIPINE BESYLATE 5 MG TABLET PO SCH (10:00)
--- NOTE | 2017-07-04 10:59 | DISCHARGE SUMMARY E ---
Discharge Summary NAME: LISA FRANCISCO : 1945 AGE: 72Y ADMITTED: 07/02/2017 DISCHARGED: 07/03/2017 ADDENDUM: The patient was discharged yesterday on 07/03/2017; however, the family refused to come cloth picker the patient, citing that APS told them it was okay. The patient's discharge was not rescinded given that the patient was discharged and did not meet criteria for further hospital stay. I had a lengthy phone discussion with the patient's daughter who the patient resides with. The patient's daughter was belligerent and angry on the phone, stating that her mother was "fat and not motivated." She stated that the mother would not care for herself at home even in spite of the patient being able to toilet herself in the hospital and ambulating 100 feet with physical therapy, that her mother would not do for herself, and that she could not continue to provide care for her mother. She blatantly refused to pick the patient up from the hospital, citing that her and her mother did not get along. The patient's daughter also stated "my mother should not even be in the hospital because there is nothing wrong with her. She came to the hospital because we were having an argument." On the morning of 07/04/2017, the patient is to be picked up by another daughter who lives in [place] that can provide care for the patient. Orders have been written for home oxygen given that the patient had been using the home oxygen of a family member at her daughter's home. Time spent on this including resource alignment is 25 minutes. DICTATING PHYSICIAN: GINNY ALBRIGHT NP [id number] PHY#: [id number] ID: [id number] JOB#: [id number] ACCT: [id number] cc:ARLYN BLACKMON M.D., MICHAEL NP > MTDD
[2017-07-04 16:19] VITALS: BP 148/75
[2017-07-04] MEDS: ATORVASTATIN CALCIUM 20 MG TABLET PO SCH (21:10)
== END 2017-07-05 01:21 | disposition home or self-care (01) | DRG 391 ==
LOC: ER 19:17 → EH 22:05 → 3W 07-01 01:05 → OBSVTOIN 07-02 10:08
PROVIDERS: ADMIT Internal Medicine; ATTEND Internal Medicine
DX: A08.39 Other viral enteritis (principal); J96.21 Acute and chronic respiratory failure with hypoxia; I13.0 Hypertensive heart and chronic kidney disease with heart failure and stage 1 through stage 4 chronic kidney disease, or unspecified chronic kidney disease; I50.32 Chronic diastolic (congestive) heart failure; E87.0 Hyperosmolality and hypernatremia; N18.3 Chronic kidney disease, stage 3 (moderate); I25.10 Atherosclerotic heart disease of native coronary artery without angina pectoris; E78.5 Hyperlipidemia, unspecified; J44.9 Chronic obstructive pulmonary disease, unspecified; G44.209 Tension-type headache, unspecified, not intractable; Z62.820 Parent-biological child conflict; R10.32 Left lower quadrant pain; Z63.8 Other specified problems related to primary support group; Z87.891 Personal history of nicotine dependence; Z86.73 Personal history of transient ischemic attack (TIA), and cerebral infarction without residual deficits; Z79.01 Long term (current) use of anticoagulants; Z79.51 Long term (current) use of inhaled steroids; Z79.899 Other long term (current) drug therapy; I25.2 Old myocardial infarction; Z88.1 Allergy status to other antibiotic agents; Z88.5 Allergy status to narcotic agent; Z88.0 Allergy status to penicillin; Z88.2 Allergy status to sulfonamides; Z88.8 Allergy status to other drugs, medicaments and biological substances
CPT/HCPCS: 36415; 71010; 74020; 80048; 80053; 80061; 82550; 82553; 83690; 84484; 85025; 85027; 87045; 87177; 87205; 87493; 93005; 93010; 99285; G0378; G8978-GP; G8979-GP; J1885; J2405; J3490; J7030